=== PATIENT | female | born 1950 | race Caucasian/White ===

== ENCOUNTER → 2017-03-25 | Day surgery (SDC) | payer OTHER ==
[~2017-03-25] VITALS: Ht 154.9 cm; Wt 113.5 kg
[2017-03-25] VITALS (9 sets, daily range): BP systolic 127–231; BP diastolic 57–108; PULSE 77–90; TEMP 36.8; O2SAT 97–99; Ht 154.9 cm; Wt 113.5 kg
[~2017-03-25] MED LIST: ASPI81TA28 PO; ATOR-22 PO; CITA10TA8 PO; CITA20TA4 PO; FENTANYL CITRATE INJ 50 MCG/1 ML 2 ML VIAL ONE; FURO-85 PO; GABA1CAP PO; GLC/500 PO; GLUC1TES; HEPARIN SOD (PORCINE) 1000 UNIT/ML 10 ML VIAL ONE; HYDR-5688 PO; HYZ/50125 PO; HydrALAZINE HCL 20 MG/ML VIAL IV. STA; HydrALAZINE HCL 20 MG/ML VIAL ONE; LEVO100T7 PO; LIDOCAINE HCL 2% 2 ML VIAL (20MG/ML) ONE; METO50TA16 PO; MIDAZOLAM HCL 1 MG/ML 2ML VIAL ONE; NITROGLYCERIN/D5W 100MCG/ML 20ML SYR ONE; NiCARDipine HCL INJ 2.5 MG/ML 10 ML AMP ONE; PHENYLEPHRINE HCL INJ 10 MG/ML VIAL ONE; PROPOFOL IV EMULSION 10 MG/ML 20 ML VIAL IV ONE; ZNTT/150 PO
--- NOTE | 2017-03-25 07:26 | History and Physical ---
History & Physical Date & Time of Service: Mar 24, 2017 at 18:20 Chief Complaint: Aortic valve stenosis, mitral regurgitation Primary Care Physician: Ellen Nunez M.D. History of Present Illness Source: patient, clinic records Bina Perez is a 66 year old female initially seen by the undersigned in preoperative cardiology consultation on 01/21/17 for preoperative cardiovascular evaluation prior to right total knee replacement. She noted difficulty with ambulating due to the right leg. She was observed ambulating in the clinic when I watched her walk into the exam room and I had observed appear to be significant shortness of breath with minimal exertion. She underwent dobutamine stress echocardiogram for further risk stratification and was found that her previous moderate aortic valve stenosis progressed to severe aortic valve stenosis. Orthopedic surgery has therefore been placed on hold and she is undergoing further evaluation with plans for possible aortic valve replacement many future. A transesophageal echocardiogram has been recommended for further assessment of both her aortic valve as well as mitral valve there is concern of significant mitral valve regurgitation Past Medical/Surgical History Past medical history: 1. Obesity 2. Hypertension 3. Type 2 diabetes mellitus 4. Aortic valve stenosis 5. Remote transient ischemic attack 6. Progressive osteoarthritis 7. 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 Allergies Coded Allergies: Sulfa Antibiotics (Unverified Allergy, Mild, HIVES, 03/25/17) Home Medications Scheduled Citalopram Hydrobromide (Celexa), 1.5 TAB PO DAILY Furosemide (Lasix), 2 TAB PO DAILY Gabapentin (Neurontin), 100 MG PO TID Hctz/Losartan (Hyzaar 12.5MG/50MG), 1 TAB PO DAILY Levothyroxine Sodium (Levothyroxine Sodium), 1 TAB PO DAILY Metformin Hcl (Glucophage), 500 MG PO BID Metoprolol Tartrate (Lopressor) (Lopressor), 50 MG PO BID Ranitidine (Zantac), 150 MG PO BID Scheduled PRN Hydrocodone/Acetaminophen 5MG/325MG ([place] 5MG/325MG), 1 TAB PO Q6 PRN for Pain Miscellaneous Medications Glucose Blood (Blood Glucose Test Strips) Review of Systems 10 point review of systems is negative with the exception of right knee pain and exertional shortness of breath Physical Exam Vital Signs Last Vital Signs Documentation Date Time Temp Pulse Resp B/P (MAP) Pulse Ox O2 Delivery O2 Flow Rate FiO2 03/25/17 07:10 36.8 78 16 186/84 97 Room Air General Appearance: WD/WN Respiratory/Chest: lungs clear Cardiovascular: regular rate, rhythm, + systolic murmur Abdomen/GI: non tender, soft Extremities/Musculoskelatal: no pedal edema Neurologic/Psych: alert, normal mood/affect, oriented x 3, + pertinent finding (no focal neurologic deficits ) Diagnostics Laboratory Results Laboratory studies/: Received 0.36 Hemoglobin 11.9 Account 317 LDL cholesterol 03/12/70 was 63 mg/dL Chemistry panel 03/12/17: Sodium 137 Potassium 3.9 Chloride 93 Glucose 114 Blood urea nitrogen 5 Creatinine 0.6 Diagnostic Radiology Dobutamine stress echocardiogram performed 02/09/17: Stress echocardiogram was negative for inducible ischemia RESTING STUDY: The LV wall thickness is mildly increased (concentric). The left atrium is mildly enlarged. There is severe mitral annular calcification. Mild mitral regurgitation is present. The aortic valve has three leaflets. The aortic valve is severely calcified. Severe aortic valve stenosis is present. The peak velocity across aortic valve was 4 meters/second at rest with a mean aortic valve gradient of 40 millimeters of Hg. There is no evidence of pulmonary hypertension. Compared to the prior study dated 03/24/2016 there has been an interval increase in the severity of the aortic valve stenosis. Severe aortic valve stenosis is noted on the present study. EKG EKG performed 03/04/17: Normal sinus rhythm at 72 bpm. Normal EKG Impression Assessment and Plan Impression: 66-year-old female 1. Severe aortic stenosis, mitral valve calcification and is mild mitral regurgitation Plan: Patient is to undergo transesophageal echocardiogram for further delineation of her valvular heart disease prior to cardiac catheterization CT surgery consultation. Patient is agreeable and informed consent was obtained. She took her am blood pressure medications however, her BP is a little high on arrival. Will monitor with sedation.
--- NOTE | 2017-03-25 08:22 | Anesthesiology Progress Note ---
Anesthesia Post Op Note Date & Time Mar 25, 2017 at 08:22 Vital Signs Pain Intensity: 0 Vital Signs Past 12 Hours Date Time Temp Pulse Resp B/P (MAP) Pulse Ox O2 Delivery O2 Flow Rate FiO2 03/25/17 08:20 77 16 180/90 97 Nasal Cannula 6 03/25/17 08:15 78 16 231/92 97 Nasal Cannula 6 03/25/17 08:10 77 16 201/106 97 Nasal Cannula 6 03/25/17 08:05 79 16 171/70 99 Nasal Cannula 6 03/25/17 08:00 80 16 180/84 98 Nasal Cannula 6 03/25/17 07:55 87 16 197/86 98 Nasal Cannula 6 03/25/17 07:50 90 16 127/108 98 Nasal Cannula 6 03/25/17 07:10 36.8 78 16 186/84 97 Room Air Notes Mental Status: alert / awake / arousable, participated in evaluation Pt Amnestic to Procedure: Yes Nausea / Vomiting: adequately controlled Pain: adequately controlled Airway Patency, RR, SpO2: stable & adequate BP & HR: stable & adequate Hydration State: stable & adequate Anesthetic Complications: no major complications apparent
--- NOTE | 2017-03-25 08:58 | Cardiology Procedure Brief Nt ---
Preliminary Cardiology Note Procedure Date Mar 25, 2017. Pre-Procedure Diagnosis Severe aortic stenosis, assess for MV pathology Post-Procedure Diagnosis Severe , moderate MAC, no MS, Trace to mild MR, Mild TR Procedure(s) Performed CHELO Board Runner Reji Shannon DO Emergency Vehicle Driver(s) STEVEN Villa Estimated Blood Loss none Preliminary Findings Severe on 2 D visualization. Trace to mild MR. Mild TR. Intact interatrial septum. Normal aortic root and proximal Ascending aorta diameter Recommendations Return next week for cardiac catheterization. Outpatient CT surgery consult. Specimens none Anesthesia Administered by Dr Demarco, propofol 80 mg. Complication(s) None Disposition DC to home
--- NOTE | 2017-03-25 09:05 | Discharge Instructions ---
Discharge Instructions Procedure Procedure Date: Mar 25, 2017. Reason for Visit: aortic stenosis, mitral valve calcification , exclude MR , MS. Discharge Discharge Date: Mar 25, 2017. Discharge Diagnosis: Severe Last Recorded Wt (Kilograms): 113.5 Anesthesia Post Anesthesia Instructions: If you have had General Anesthesia or IV Sedation: * Do not drive today. * Resume driving when surgeon permits. * Do not make important decisions or sign legal documents today. * Call surgeon for: 1. Temperature elevations greater than 101 degrees F. 2. Uncontrollable pain. 3. Excessive bleeding. 4. Persistent nausea and vomiting. 5. Medication intolerance (nausea, vomiting or rash). * For nausea and vomiting use only clear liquids such as: tea, soda, bouillon until nausea subsides, then gradually increase diet as tolerated. * If you have any concerns or questions, call your surgeon's office. If physician is unavailable and it is an emergency, call 911 or go to the nearest emergency room. Instructions Activity Recommendations: limitations as noted below Recommended Home Diet: resume previous diet Allergies: Coded Allergies: Sulfa Antibiotics (Unverified Allergy, Mild, HIVES, 03/25/17) Follow Up Additional Instructions: ACTIVITY RECOMMENDATIONS: Resume activities as tolerated with no limitations unless specified. _x_ No lifting over _10_ pounds for 24 hours. _x_ Do not engage in vigorous exercise, sexual activity, or sports for 24 hours. _x_ Do not drive or operate any motorized equipment for 24 hours. _x_ You may return to work/school tomorrow. _x_ Nothing to eat or drink until gag reflex returns. _x_ No HOT or WARM liquids for _24_ hours. _x_ Avoid "scratchy" foods such as potato chips or pretzels for 24 hours following procedure. SPECIAL CARE: If you experience coughing up or vomiting of blood, contact _Dr Shannon ___ Follow-up with: Keep appointment for cardiac catheterization next week. Micaela William Recommendations: Call your doctor if: * Temperature above 101 degrees * Pain not relieved by pain medicine ordered * There is increased drainage or redness from any incision * You have any unanswered questions or concerns. Your Doctors Instructions noted above were prepared by provider Blake Shannon. Patient Signature Section: Patient Instructions Signature Page Irma Perez Patient (or Guardian) Signature/Date: I have read and understand the instructions given to me by my caregivers. Caregiver/RN/Doctor Signature/Date: The above-named patient and/or guardian has received patient instructions on this date. + Original Patient Signature Page (only) stays with chart. Please make copy for patient.
--- NOTE | 2017-03-25 12:21 | TEE ---
*NOTICE TO RECEIVING [employer] AGENCY This information is strictly Confidential and protected under [place] law. [place] law prohibits you from making any further disclosure of this information unless further disclosure is expressly permitted by the written consent of the person to whom it pertains or is authorized by law. A general authorization for the release of medical or other information is not sufficient for this purpose. Hospital accepts no responsibility if the information is made available to any other person, INCLUDING THE PATIENT. Interpretation Summary * Name: TAMIKO GAR Study Date: 03/25/2017 07:32 AM BP: 177/98 mmHg * Patient Location: C.CATH HR: 80 * : 1950 (M/d/yyyy) Gender: Female Height: 61 in * Age: 66 yrs Ethnicity: CA Weight: 250 lb * Ordering Physician: Blake Shannon DO, FACC * Referring Physician: Blake Shannon DO, FACC * Performed By: Traci Rao RDCS * * Reason For Study: AVstenosis, MV regurgitation * BSA: 2.1 m2 * -- Conclusions -- * There is moderate concentric left ventricular hypertrophy. * The left ventricular wall motion is normal. * The LV Ejection Fraction = 55-60%. * The aortic valve is bicuspid. * The aortic valve is severely calcified. * Severe valvular aortic stenosis. * There is moderate mitral annular calcification. * There is mild mitral regurgitation. * The aortic root and proximal ascending aorta are normal sized. * There is moderate tricuspid regurgitation. * Mild pulmonary hypertension is present. * The PA systolic pressure is calculated to be 40 mm Hg. Procedure Details * The transesophageal portion of this study was personally supervised by the undersigned interpreting physician. * CHELO Probe #1 utilized for procedure. * The study was performed in Cardiac Catheterization Lab. * Time out was conducted by the physician, nurse, and waste management recycling technician with positive identification of patient and procedure. * Informed consent for Transesophageal Echocardiogram was obtained prior to the procedure. * An intravenous line was placed. A topical anesthetic agent was used for oropharangeal anesthesia. A bite block was inserted. * Sedation performed by the anesthesia department. * The patient's vital signs, including blood pressure, heart rate, pulse oximetry and cardiac rhythm were monitored throughout the procedure . * The posterior oropharynx was anesthetized using a topical anesthetic spray. A bite guard was inserted. * A multifrequency, multiplane transesopheageal echocardiographic endoscope was inserted and manipulated in the standard fashion to achieve multiplane views. * The transesophageal probe was passed without difficulty. * The usual views were obtained; basal, mid-esophageal, transgastric and aortic views. * The patient tolerated the procedure well without evidence of orophangeal or esophageal trauma. * A 2D transesophageal echocardiogram with spectral and color flow Doppler was performed. * Contrast injection with agitated saline was performed. Left Ventricle * The left ventricle is normal in size. * There is moderate concentric left ventricular hypertrophy. * Left ventricular systolic function is normal. * Ejection Fraction = 55-60%. * The left ventricular wall motion is normal. Right Ventricle * The right ventricle is normal in size and function. Atria * The left atrial size is normal. * No thrombus is detected in the left atrial appendage. * No left atrial mass or thrombus visualized. * Right atrial size is normal. * The interatrial septum is intact with no evidence for an atrial septal defect. Mitral Valve * There is moderate mitral annular calcification. * There is no mitral valve stenosis. * There is mild mitral regurgitation. Tricuspid Valve * The tricuspid valve is normal. * There is no tricuspid stenosis. * There is moderate tricuspid regurgitation. * Mild pulmonary hypertension is present. The PA systolic pressure is calculated to be 40 mm Hg. Aortic Valve * The aortic valve is bicuspid. * The aortic valve is severely calcified. * Severe valvular aortic stenosis. * No aortic regurgitation is present. Pulmonic Valve * The pulmonic valve is not well seen, but is grossly normal. Great Vessels * The aortic root and proximal ascending aorta are normal sized. Pericardium * There is no pericardial effusion. MMode 2D Measurements and Calculations Ao root diam 2.4 cm Ao root area 4.4 cm\S\2 asc Aorta Diam 2.8 cm
== END | disposition home or self-care (01) ==
LOC: C.CATH 05:59
PROVIDERS: ATTEND Specialist
DX: I35.0 Nonrheumatic aortic (valve) stenosis (principal); I36.1 Nonrheumatic tricuspid (valve) insufficiency; I51.9 Heart disease, unspecified; I10 Essential (primary) hypertension; E11.9 Type 2 diabetes mellitus without complications; M17.11 Unilateral primary osteoarthritis, right knee; E66.9 Obesity, unspecified; Z86.73 Personal history of transient ischemic attack (TIA), and cerebral infarction without residual deficits; Z79.84 Long term (current) use of oral hypoglycemic drugs; Z79.899 Other long term (current) drug therapy

== ENCOUNTER → 2017-03-30 | Day surgery (SDC) | payer OTHER ==
[~2017-03-30] VITALS: Ht 154.9 cm; Wt 113.5 kg
[~2017-03-30] MED LIST changes: +ACETAMINOPHEN 325 MG TAB ONE; +ACETAMINOPHEN 325 MG TAB PO PRN; +ATROPINE SULFATE 0.1 MG/ML 5ML SYR IV PRN; -HydrALAZINE HCL 20 MG/ML VIAL IV. STA; +LABETALOL HCL IV 5 MG/ML 20ML IV ONE; -LIDOCAINE HCL 2% 2 ML VIAL (20MG/ML) ONE; +ONDANSETRON INJ 2 MG/ML 2 ML VIAL IV PRN; -PHENYLEPHRINE HCL INJ 10 MG/ML VIAL ONE; -PROPOFOL IV EMULSION 10 MG/ML 20 ML VIAL IV ONE; +SODIUM CHLORIDE 0.9% 1000ML 250 ML IV PRN
[2017-03-30 07:21] VITALS: Ht 154.9 cm; Wt 113.5 kg
[2017-03-30 07:22] VITALS: BP 209/88; PULSE 72; TEMP 36.4; O2SAT 94
--- NOTE | 2017-03-30 09:52 | History & Physical Bridge Note ---
H&P Re-Evaluation Bridge Note: I have examined the patient, reviewed the History & Physical and in the interval since the performance of the History & Physical I have noted the following changes of clinical significance: No changes noted
--- NOTE | 2017-03-30 09:53 | Procedure Note ---
Pre-Mod Sedation Assessment General Date of Moderate Sedation: Mar 30, 2017. Vital Signs: Vital Signs Past 12 Hours Date Time Temp Pulse Resp B/P (MAP) Pulse Ox O2 Delivery O2 Flow Rate FiO2 03/30/17 09:45 86 16 117/75 (89) 98 Mask 3 03/30/17 07:22 36.4 72 16 209/88 94 Room Air Review Cardiovascular: regular rate, rhythm, + pertinent finding (1+ B/L LE edema.) Abdomen: normal bowel sounds, non tender, soft Lungs: chest non-tender, lungs clear Pre-Sedation Airway Assessment Oral Cavity: Dentures Short Thick Neck: Yes Hx of Sleep Apnea: No Smoking Status: Never Smoker Mallampati Classification: Class III ASA Classification: Class III Procedure Planning Contraindications-for Mod Sed: None Yes Notes The planned sedation has been discussed with the patient and consent obtained. I have identified the patient, determined the appropriateness of sedation and have assessed the patient immediately prior to the procedure. All medicine(s) and interventions are by my order.
--- NOTE | 2017-03-30 09:54 | Procedure Note ---
Post-Mod Sedation Assessment General Date of Moderate Sedation Mar 30, 2017. Vital Signs: Vital Signs Past 12 Hours Date Time Temp Pulse Resp B/P (MAP) Pulse Ox O2 Delivery O2 Flow Rate FiO2 03/30/17 09:45 86 16 117/75 (89) 98 Mask 3 03/30/17 07:22 36.4 72 16 209/88 94 Room Air Review - Discharge Criteria Vital Signs Stable: Yes Alert/Oriented/Conversant: Yes Returned to Baseline Mental St: Yes Nausea Absent/Minimal: Yes Pain/Discomfort/Absent/Minimal: Yes Normal/Baseline Respirations: Yes Active Bleeding?: No Pt Received D/C Instructions: Yes Prescriptions Given: None Specific Proced. D/C Criteria Distal Pulses Present (Cardiac: Yes Groin site assessed-Card Cath: Yes Voided Prior To Discharge: Yes Discharged Patients Adult Escort/Transportation: Yes
--- NOTE | 2017-03-30 10:11 | Cardiac Catheterization ---
Procedure Note Procedure Date Mar 30, 2017. Pre-Procedure Diagnosis Valvular Disease AUC Score 7 Post-Procedure Diagnosis Mild CAD Procedure(s) Performed Coronary Angiography Design Maker Dr. [employer] Lawyer(s) Alexsandra RTR, Sedation monitoring nurse: Juan Carlos Shaikh RN Estimated Blood Loss 5cc Medication(s) Fentanyl (50mcg), Nicardipine, Nitroglycerin, Versed (2mg), Lidocaine 1% Summary of Findings Mild non-obstructive CAD. Hemodynamics Rest Ao: 163/81/118 Final Ao: 162/81/118 LV: N/A Recommendations valve replacement Specimens None Radiation Exposure (mGy) 1626 Contrast (mls) 70 Anesthesia Moderate Sedation, Start 0841, Stop 0944 Procedural Complication(s) None Disposition Visual Aid Expert Holding/Recovery ACC Data Cardiac Status Clinical evaluation leading to the procedure CAD Presntation: Stable angina Anginal Classification: CCS II Heart Failure: No Cardiogenic Shock w/in 24Hrs: No Cardiac Arrest w/in 24Hrs: No Imaging studies past 6 months: Yes Stress studies past 6 months: No Standard Exercise Stress Test: No Stress Echocardiogram: No Stress Testing w/SPECT MPI: No Cardiac CTA: No Coronary Anatomy Dominant: Right Left Main (% Stenosis): Normal LAD (% Stenosis): Ostial (0%), Proximal (10%), Mid (10%), Distal (0%) D1 (% Stenosis): Proximal (10%) D2 (% Stenosis): Normal Circumflex (% Stenosis): Normal OM1 (% Stenosis): Normal RCA (% Stenosis): Normal R PDA (% Stenosis): Normal R PL1 (% Stenosis): Normal Ramus (% Stenosis): Normal Diagnostic Status: Elective Closure Device Percutaneous Entry Location: Femoral (Radial access obtained, however, unable to pass wire past the elbow due to tortuosity) Closure Device: Mynx (TR band for radial access) Recommendations: valve replacement Intraprocedure Events Significant Dissection: No Perforation: No
--- NOTE | 2017-03-30 10:12 | Discharge Instructions ---
Discharge Instructions Procedure Procedure Date: Mar 30, 2017. Reason for Visit: *Dr Moreau To Do* Aortic Stenosis. Discharge Discharge Date: Mar 30, 2017. Discharge Diagnosis: Severe aortic stenosis. Mild CAD Last Recorded Wt (Kilograms): 113.5 Anesthesia Post Anesthesia Instructions: If you have had General Anesthesia or IV Sedation: * Do not drive today. * Resume driving when surgeon permits. * Do not make important decisions or sign legal documents today. * Call surgeon for: 1. Temperature elevations greater than 101 degrees F. 2. Uncontrollable pain. 3. Excessive bleeding. 4. Persistent nausea and vomiting. 5. Medication intolerance (nausea, vomiting or rash). * For nausea and vomiting use only clear liquids such as: tea, soda, bouillon until nausea subsides, then gradually increase diet as tolerated. * If you have any concerns or questions, call your surgeon's office. If physician is unavailable and it is an emergency, call 911 or go to the nearest emergency room. Instructions Activity Recommendations: limitations as noted below Return to School/Work: with the following limitations Recommended Home Diet: diabetes diet Allergies: Coded Allergies: Sulfa Antibiotics (Unverified Allergy, Mild, HIVES, 03/25/17) Phentermine (Unverified Adverse Reaction, Unknown, Seizure activity or cardiac arrest - pt unsure, 03/30/17) Tramadol (Unverified Adverse Reaction, Unknown, Seizure activity, 03/30/17) Provider Instructions ACTIVITY RECOMMENDATIONS: It is common to feel weak and fatigue for a few days. * Do not drive or operate any motorized equipment for the next three days. * Limit stair usage (2 or 3 trips a day only) for the next three days. * Do not lift anything heavier than 10 pounds for the next three days. * Do not engage in vigorous exercise or any sports for the next five days. * You may shower the day after your procedure, but do not immerse the area for three days. Cleanse the site gently with soap and water. SPECIAL CARE INSTRUCTIONS: * You may replace the pressure dressing or band-aid the morning after the procedure. * After your procedure, it is normal to have a small bruise or small lump at the site. Examine your site daily for any change in the bruise or lump, redness, swelling, drainage or numbness. Notify your doctor if any change. BLEEDING: * If there is a small amount of bleeding at the site, lie down and apply firm pressure with a clean cloth for ten minutes. When the bleeding stops, lie quietly keeping the procedure limb straight for six hours. Notify your doctor as soon as possible. * If the bleeding does not stop after ten minutes or if there is a large amount of bleeding or spurting, call 911 immediately. Continue to lie down and hold firm pressure until help arrives. SKIN IRRITATION: * You may experience some redness and/or swelling in the area where radiation was administered. If any skin irritation occurs, please contact your family physician. FOLLOW UP VISIT: Keep any scheduled doctor appointments. Follow Up Follow-up with: Dr. Shannon as scheduled. Micaela William Recommendations: Call your doctor if: * Temperature above 101 degrees * Pain not relieved by pain medicine ordered * There is increased drainage or redness from any incision * You have any unanswered questions or concerns. Your Doctors Instructions noted above were prepared by provider Shantanu Gautam. Patient Signature Section: Patient Instructions Signature Page Irma Perez Patient (or Guardian) Signature/Date: I have read and understand the instructions given to me by my caregivers. Caregiver/RN/Doctor Signature/Date: The above-named patient and/or guardian has received patient instructions on this date. + Original Patient Signature Page (only) stays with chart. Please make copy for patient.
[2017-03-30 13:00] VITALS: BP 132/86; PULSE 88; O2SAT 95
== END | disposition home or self-care (01) ==
LOC: C.CATH 06:59
PROVIDERS: ATTEND Specialist
DX: I25.10 Atherosclerotic heart disease of native coronary artery without angina pectoris (principal); I35.0 Nonrheumatic aortic (valve) stenosis; I10 Essential (primary) hypertension; E11.9 Type 2 diabetes mellitus without complications; E03.9 Hypothyroidism, unspecified; E78.5 Hyperlipidemia, unspecified; M19.90 Unspecified osteoarthritis, unspecified site; M21.41 Flat foot [pes planus] (acquired), right foot; M21.42 Flat foot [pes planus] (acquired), left foot; Z86.73 Personal history of transient ischemic attack (TIA), and cerebral infarction without residual deficits; Z79.82 Long term (current) use of aspirin; Z82.49 Family history of ischemic heart disease and other diseases of the circulatory system; Z83.3 Family history of diabetes mellitus

== ENCOUNTER 2025-07-10 14:39 | Inpatient (IN) ==
--- NOTE | 2025-07-10 15:10 | Emergency Department Note ---
Impression & Plan Cellulitis of left lower leg, Toe ulcer, Hypokalemia, Hypertension ED Provider Note NAME: TAMIKO GAR AGE: 74 SEX: F : 1950 ARRIVES VIA: Ambulance INFORMANT: Patient, EMS ED PROVIDER(S): Steven Regalado DO CHIEF COMPLAINT: toe infection HPI: This is a 74-year-old female with the PMHx of Hypertension, hyperlipidemia, DM2, anxiety/depression, hypothyroidism, and lower extremity edema presenting to [facility] for further evaluation of worsening wound infection. Patient is accompanied by EMS who provide additional history. EMS notes the patient has been hemodynamic stable and route. She follows with wound care and reports worsening left toe wounds and concerns for cellulitis. They report exposed bone and tendon. Patient reports some pain in this area but otherwise no complaints. She states that her caregivers have been trying to perform wound care but it continues to worsen. They deny fever or chills. No cough or congestion. Denies chest pain or palpitations. No shortness of breath. They deny abdominal pain, nausea and vomiting. No urinary complaints. No recent changes in bowel movements. Patient denies recent changes in medications or OTC supplements. Patient offers no other complaints, today. ADDITIONAL HISTORY OBTAINED: Per HPI Chronic Medical/Social Conditions Affecting Care: Per HPI PAST MEDICAL HISTORY: See Below PAST SURGICAL HISTORY: See Below FAMILY HISTORY: See Below SOCIAL HISTORY: See Below HOME MEDICATIONS: See Below ALLERGIES: See Below VITALS: See Below PHYSICAL EXAMINATION: GENERAL: Sitting up in bed, alert, well appearing, well nourished, no distress, non-toxic EYE EXAM: normal conjunctiva. PERRL and EOM's grossly intact. OROPHARYNX: no exudate, no erythema, lips, buccal mucosa, and tongue normal and mucous membranes are moist NECK: supple, no nuchal rigidity, no adenopathy, non-tender LUNGS: Clear to auscultation. Normal chest wall mechanics HEART: no murmurs, regular rate, regular rhythm ABDOMEN: abdomen soft, non-tender, no masses, no rebound or guarding. BACK: Back is symmetrical on inspection and there is no deformity, no midline tenderness, no CVA tenderness. SKIN: no rashes and no bruising UPPER EXTREMITIES: upper extremities are grossly normal. LOWER EXTREMITIES: As compared to the right lower extremity, the left lower extremity is erythematous extending into mid tibia. Significant erythema and warmth of toes 2 through 4. There are necrotic areas of these toes. Most significant is the second toe on the plantar aspect with exposed tendon and bone. The extremities are warm with 2+ DP pulses. NEURO EXAM: Normal sensorium, GCS 15, normal speech, no gross weakness of arms, no gross weakness of legs. MEDICAL DECISION MAKING: Differential diagnoses includes but not limited to vascular ulcer, lymphedema, venous stasis, cellulitis, necrotizing fasciitis, diabetic ulcer, osteomyelitis, bacteremia In summary, this is a 74 year old female who presented with lower extremity wounds. Differential as above. Nursing notes and pertinent past medical records reviewed. Vital signs reviewed and the patient is hypertensive but otherwise afebrile and HDS. History and presentation revealed risk factors for lower extremity wounds including vascular disease as well as DM2. Appears that she has chronic wounds of the left lower extremity. Unclear if she has been seeing wound care. Physical examination revealed exposed bone intendant evident on exam. As a result of my initial evaluation, given physical examination, I am concerned for vascular or diabetic ulcers that now have worsened to a complicated cellulitis and possible osteomyelitis. Patient's vital signs are stable and I doubt sepsis or bacteremia at this time. I do feel the patient likely has cellulitis on top of likely bone infection. Patient will require hospitalization for IV antibiotics and will touch base with podiatry. Diagnostics interpreted by me include cardiac monitoring as listed below: -Cardiac Monitoring: An order was placed for continuous cardiac monitoring. The monitor shows a rate of 70s with regular rhythm. Patient completed laboratory studies and imaging. Results independently interpreted by me are no significant leukocytosis. Anemia is stable. ESR and CRP are elevated but procalcitonin is normal. Hypokalemia noted and replenishment is ordered. MRSA Nares negative. Plain films were independently interpreted by me as negative for evidence of osteomyelitis but given exam we will continue to treat for this. I did discuss with podiatry and Dr. Combs was agreeable to see the patient. The patient was managed with broad-spectrum antibiotics including ceftriaxone and vancomycin. Patient did not require pain medications while in the emergency department. Ultimately, the decision was made to admit the patient for left lower extremity cellulitis with concerns for osteomyelitis and diabetic versus vascular ulceration. I discussed the case with the hospitalist service via telephone/[employer] and they are agreeable to admit the patient to their services. Based on the above, including the patient's age, coexisting illnesses, labs, imaging, and exam findings the decision to treat as an inpatient. I discussed the patient with the hospitalist team who recommended admission to their services. They received the medications, treatments, interventions indicated above and their condition remained stable. I discussed my findings with the patient and their family and they understand and agree with the treatment plan. All patient / family questions were answered to their satisfaction. Consults/Care Managements Discussions: Per MDM ER treatment provided: See above Procedures:none Critical Care: None The chart was completed utilizing [employer] voice recognition software. Grammatical errors, random word insertions, pronoun errors, and incomplete sentences are an occasional consequence of this system due to software limitations, ambient noise, and hardware issues. Any formal questions or concerns about the content, text, or information contained within the body of this dictation should be directly addressed to the physician for clarification. Past Med/Surg History Problem List (Updated 07/10/25 @ 17:36 by Steven Regalado DO) Hypertension (Acute) Hypokalemia (Acute) Toe ulcer (Acute) Cellulitis of left lower leg (Acute) Social History Smoking Status: Never smoker Preferred Language: Wolof Feels Safe at Home: Yes Allergies Allergies Allergy/AdvReac Type Severity Reaction Status Date / Time Sulfa (Sulfonamide Allergy Intermediate HIVES Verified 03/28/21 12:16 Antibiotics) phentermine AdvReac Severe Seizure Verified 03/28/21 12:16 activity or cardiac arrest - pt unsure tramadol AdvReac Intermediate Seizure Verified 03/28/21 12:16 activity Home Meds Home Medications Medication Instructions Recorded Confirmed Magic Swizzle 15 ml PO QID 03/28/21 07/10/25 aspirin 81 mg tablet,delayed 81 mg PO QAM 03/28/21 07/10/25 release atorvastatin 20 mg tablet 20 mg PO HS 03/28/21 07/10/25 buspirone 10 mg tablet 10 mg PO TID 03/28/21 07/10/25 citalopram 20 mg tablet 30 mg PO QAM 03/28/21 07/10/25 cyanocobalamin (vitamin B-12) 1,000 mcg PO QAM 03/28/21 07/10/25 1,000 mcg tablet (Vitamin B-12) diphenhydramine 25 1 tab PO HS PRN Sleep 03/28/21 07/10/25 mg-acetaminophen 500 mg tablet (Tylenol PM Extra Strength) diphenhydramine HCl 25 mg tablet 25 mg PO BID 03/28/21 07/10/25 (Benadryl Allergy) famotidine 10 mg tablet (Acid 10 mg PO BID 03/28/21 07/10/25 Water Attendant (famotidine)) ferrous sulfate 325 mg (65 mg 325 mg PO QAM 03/28/21 07/10/25 iron) tablet (iron) gabapentin 100 mg capsule 100 mg PO TID 03/28/21 07/10/25 levothyroxine 100 mcg tablet 100 mcg PO DAILYBB 03/28/21 07/10/25 melatonin 1 mg tablet 1 mg PO HS 03/28/21 07/10/25 metformin 500 mg tablet 500 mg PO BIDM 03/28/21 07/10/25 metoprolol tartrate 50 mg tablet 50 mg PO BID 03/28/21 07/10/25 potassium chloride 10 mEq 10 meq PO QAM 03/28/21 07/10/25 tablet,extended release(part/cryst) spironolactone 25 mg tablet 12.5 mg PO QAM 03/28/21 07/10/25 torsemide 20 mg tablet 10 - 20 mg PO TID 03/28/21 07/10/25 duloxetine 60 mg capsule,delayed 60 mg PO DAILY 07/10/25 07/10/25 release Results & Data (ED) Vital Signs Vital Signs - 24 hr 07/10/25 14:32 07/10/25 15:15 07/10/25 15:42 Temperature 37 C Temperature Source Oral Pulse Rate 70 73 72 Pulse Rate from SpO2 Sensor 77 90 Respiratory Rate 18 16 18 Respiratory Effort / Characteristics Non-Labored Spontaneous Respiratory Depth Normal Respiratory Pattern Regular Blood Pressure 151/88 H 139/71 168/82 H Blood Pressure Mean 109 93 110 Pulse Oximetry 98 98 99 Oxygen Delivery Method Room Air Nasal Cannula Nasal Cannula Oxygen Flow Rate 2 2 Sepsis Recent Fever Within 48 Hours No Sepsis New/Unexplained Change in Mental Status N/A Sepsis Action Taken by Nursing No Action Required 07/10/25 16:13 Temperature Temperature Source Pulse Rate 70 Pulse Rate from SpO2 Sensor Respiratory Rate Respiratory Effort / Characteristics Respiratory Depth Respiratory Pattern Blood Pressure Blood Pressure Mean Pulse Oximetry Oxygen Delivery Method Oxygen Flow Rate Sepsis Recent Fever Within 48 Hours Sepsis New/Unexplained Change in Mental Status Sepsis Action Taken by Nursing Laboratory Data 07/10/25 15:15 07/10/25 15:15 Lab Results 07/10/25 07/10/25 Range/Units 15:10 15:15 WBC 10.35 (4.8-10.8) K/ul RBC 3.39 L (4.20-5.40) M/uL Hgb 10.4 L (12.0-16.0) g/dl Hct 33.0 L (37.0-47.0) % MCV 97.3 (80.0-100.0) fL MCH 30.7 (25.0-34.0) pg MCHC 31.5 L (32.0-36.0) g/dL RDW Std Deviation 47.7 H (36.4-46.3) fL RDW Coeff of Yohana 13.3 (11.5-14.5) % Plt Count 323 (130-400) K/uL MPV 8.6 L (9.4-12.4) fL Immature Gran % (Auto) 0.5 % Neut % (Auto) 71.5 % Lymph % (Auto) 14.3 % Mower % (Auto) 10.3 % Eos % (Auto) 2.8 % Baso % (Auto) 0.6 % Neut # (Auto) 7.40 H (1.40-6.50) K/uL Lymph # (Auto) 1.48 (1.20-3.40) K/uL Mower # (Auto) 1.07 H (0.11-0.59) K/uL Eos # (Auto) 0.29 (0.00-0.50) K/uL Baso # (Auto) 0.06 (0.00-0.20) K/uL Immature Gran # (Auto) 0.05 (0.01-0.20) K/uL ESR 74 H (0-30) mm/hr PT 11.1 (9.0-12.0) Seconds INR 1.0 (0.9-1.1) Sodium 136 (136-145) mmol/L Potassium 3.3 L (3.5-5.1) mmol/L Chloride 102 (98-107) mmol/L Carbon Dioxide 26 (21-32) mmol/L Anion Gap 8 (3-11) BUN 14 (6-23) mg/dl Creatinine 0.67 (0.6-1.2) mg/dl Est Cr Clr Drug Dosing 72.3 ml/min eGFR 92.81 BUN/Creatinine Ratio 20.9 H (10-20) Glucose 77 (70-99(Fasting)) mg/dl Calcium 8.3 L (8.6-10.3) mg/dl Total Bilirubin 0.3 (0.2-1.0) mg/dl AST 19 (13-39) U/L ALT 9 (7-52) U/L Alkaline Phosphatase 105 H (34-104) U/L C-Reactive Protein 0.90 H (0-0.5) mg/dl Total Protein 8.0 (6.0-8.3) gm/dl Albumin 3.7 (3.4-5.0) gm/dl Globulin 4.3 H (2.5-4.0) gm/dl Albumin/Globulin Ratio 0.9 (0.9-2) Procalcitonin 0.10 (0-0.5) ng/ml Administered Medications Vancomycin HCl 2,000 mg/ (Sodium Chloride) 540 mls @ 200 mls/hr IV NOW ONE Stop: 07/10/25 18:35 Last Admin: 07/10/25 16:35 Dose: 200 mls/hr Documented By: JADEN Discontinued Medications Ceftriaxone Sodium (Rocephin) 2,000 mg in 50 mls @ 100 mls/hr IV NOW STA Stop: 07/10/25 15:15 Last Infusion: 07/10/25 16:35 Dose: Infused Documented By: Admin: 07/10/25 15:59 Dose: 100 mls/hr Documented By: JADEN Potassium Chloride (Potassium Chloride Crtab 20 Meq Tabcr) 40 meq PO NOW STA Stop: 07/10/25 16:07 Last Admin: 07/10/25 16:35 Dose: 40 meq Documented By: JADEN Imaging Data Radiologist's Impression: Foot X-Ray 07/10/25 14:46 XR foot LT min 3V routine CLINICAL HISTORY: ulcer, om . Soft tissue ulcer between the first and third digits. COMPARISON: None FINDINGS: No fracture or dislocation. No evidence of osteomyelitis seen. There are atherosclerotic calcifications. There is pes planus. IMPRESSION: No osteomyelitis seen. ACT 112: Negative or not required by law. Electronically signed by: Josef Barrow M.D. 07/10/2025 3:26 PM Discharge Plan Visit Data Chief Complaint: Toe Injury/Pain Stated Complaint: NERCROTIC LESION ON FOOT ED Provider: Steven Regalado Discharge Problem: Cellulitis of left lower leg, Toe ulcer, Hypokalemia, Hypertension Patient Disposition: Admitted As Inpatient Condition: Serious Forms Stand Alone Forms: My [facility] [employer] Prescriptions Prescriptions: No Action metformin 500 mg tablet 500 mg PO BIDM atorvastatin 20 mg tablet 20 mg PO HS torsemide 20 mg tablet 10 - 20 mg PO TID Rx Instructions: Take 1 tab in the AM Take 1\2 tab in the afternoon take 1 tab in the pm famotidine [Acid Water Attendant (famotidine)] 10 mg tablet 10 mg PO BID cyanocobalamin (vitamin B-12) [Vitamin B-12] 1,000 mcg Tablet 1,000 mcg PO QAM aspirin 81 mg Tablet,Delayed Release (Dr/Ec) 81 mg PO QAM spironolactone 25 mg tablet 12.5 mg PO QAM levothyroxine 100 mcg tablet 100 mcg PO DAILYBB ferrous sulfate [iron] 325 mg (65 mg iron) Tablet 325 mg PO QAM buspirone 10 mg tablet 10 mg PO TID diphenhydramine HCl [Benadryl Allergy] 25 mg Tablet 25 mg PO BID metoprolol tartrate 50 mg tablet 50 mg PO BID gabapentin 100 mg capsule 100 mg PO TID diphenhydramine-acetaminophen [Tylenol PM Extra Strength] 25-500 mg Tablet 1 tab PO HS PRN (Reason: Sleep) potassium chloride 10 mEq tablet,ER particles/crystals 10 meq PO QAM melatonin 1 mg Tablet 1 mg PO HS Magic Swizzle 15 ml PO QID Rx Instructions: Swish for 30 seconds and expectorate Take for 7-10 days duloxetine 60 mg capsule,delayed release(DR/EC) 60 mg PO DAILY Referrals Referrals: Misty Lee DO [Primary Care Provider] -
--- NOTE | 2025-07-10 15:27 | XRay Report ---
XR foot LT min 3V routine CLINICAL HISTORY: ulcer, om . Soft tissue ulcer between the first and third digits. COMPARISON: None FINDINGS: No fracture or dislocation. No evidence of osteomyelitis seen. There are atherosclerotic c alcifications. There is pes planus. IMPRESSION: No osteomyelitis seen. ACT 112: Negative or not required by law. Electronically signed by: Josef aBrrow M.D. 07/10/2025 3:26 PM
[2025-07-10 15:38] LABS: Hematocrit (blood only) 33.0 % (37.0-47.0); Hemoglobin 10.4 g/dl (12.0-16.0); Immature Granulocytes # (auto) 0.05 K/uL (0.01-0.20); Immature Granulocytes % (auto) 0.5 %; Mean Corpuscular Hemoglobin 30.7 pg (25.0-34.0); Mean Corpuscular Volume 97.3 fL (80.0-100.0); Platelet Count 323 K/uL (130-400); RDW Standard Deviation 47.7 fL (36.4-46.3); Red Blood Count 3.39 M/uL (4.20-5.40); White Blood Count 10.35 K/ul (4.8-10.8)
[2025-07-10] MEDS ORDERED: VANCOMYCIN CONSULT ACTIVE PRN (15:54)
[2025-07-10 15:58] LABS: Alanine Aminotransferase 9.0 U/L (7-52); Albumin Globulin Ratio 0.9 (0.9-2); Albumin Level 3.7 gm/dl (3.4-5.0); Alkaline Phosphatase 105.0 U/L (34-104); Anion Gap 8.0 (3-11); Bilirubin,Total 0.3 mg/dl (0.2-1.0); Blood Urea Nitrogen 14.0 mg/dl (6-23); Calcium 8.3 mg/dl (8.6-10.3); Carbon Dioxide 26.0 mmol/L (21-32); Chloride 102.0 mmol/L (98-107); Creatinine Clr Calc Pharmacy 72.3 ml/min; Globulin 4.3 gm/dl (2.5-4.0); Glucose 77.0 mg/dl (70-99(Fasting)); Potassium 3.3 mmol/L (3.5-5.1); Sodium 136.0 mmol/L (136-145); Total Protein 8.0 gm/dl (6.0-8.3)
[2025-07-10] MEDS: cefTRIAXone SODIUM 2,000 MG/50 ML BAG IV STA (15:59)
[2025-07-10 16:26] LABS: INR 1.0 (0.9-1.1); Prothrombin Time 11.1 Seconds (9.0-12.0)
--- NOTE | 2025-07-10 16:34 | History & Physical Report ---
Date of Service July 10, 2025 Assessment & Plan (1) Diabetic foot ulcer: (2) Hypokalemia: (3) Cellulitis of left lower leg: (4) Chronic diastolic heart failure: (5) DM (diabetes mellitus), type 2: (6) CAD (coronary artery disease): (7) Dyslipidemia: (8) Mood disorder: (9) Hypothyroidism: (10) Ambulatory dysfunction: (11) Hypertension: Plan This is a 74yo F with PMH of Type 2 diabetes, heart failure with preserved EF, hypertension, mild CAD, morbid obesity, anxiety, history of aortic valve replacement, history of TIA, dyslipidemia and other medical problems as below who was sent in by PCP for concern of worsening diabetic wound. Left foot diabetic ulcer Left lower extremity cellulitis Sent in by PCP for progressing wound of 2-4th L toes, primarily 2nd ESR 74, CRP 0.90 Foot XR without osteomyelitis seen ED discussed with Dr. Combs, who evaluated patient and added on Foot MRI - pending Continue broad abx coverage with Cefepime and Dapto Follow wound culture Scheduled tylenol, oxycodone for breakthrough pain NPO @ midnight Diffuse rash,? Atopic dermatitis Diffuse BUE and BLE rash noted on exam, has been mentioned on previous outpatient notes as well Patient has been using calamine lotion at home Added Zyrtec, steroid cream BID, continue famotidine Only new meds were duloxetine started in April 2025, also completed a 10d Keflex course in April Monitor Hypokalemia Initial K 3.3 - replaced, monitor HFpEF Appears euvolemic. Continue home torsemide, spironolactone, Lopressor DM II Hold home agents SSI while in-patient BSG AC HS A1c added for AM CAD Dyslipidemia Continue aspirin, hold statin while on dapto Mood disorder Continue home buspirone 10mg TID, duloxetine 60nf daily Ambulatory dysfunction Ambulates with a walker at home, more difficult with R foot wound PT/Ot evals, fall precautions DVT Ppx: SCDs for now Code status: FULL PCP: Jesus Dispo: Admitted to med/surg Patient seen in collaboration with Dr. Valencia. Please see addendum. I spent a total of 75 minutes coordinating, documenting, and providing care for this patient excluding time spent in the performance of separately billed services or time spent by another provider/QHP. History of Present Illness Chief Complaint: foot wound Primary Care Provider: Misty Lee DO This is a 74yo F with PMH of Type 2 diabetes, heart failure with preserved EF, hypertension, mild CAD, morbid obesity, anxiety, history of aortic valve replacement, history of TIA, dyslipidemia and other medical problems as below who was sent in by PCP due to worsening wound on her foot. Patient is a poor historian and most information obtained from chart review. Previously followed with [facility] in [place] for wound on right leg and is established with [facility]. The caregiver reported a wound on patient's second digit of left foot yesterday. Area was draining clear fluid with a scant amount of yellow and caregiver called EMS after dressing the wound. Patient declined going to the ED once ambulance had arrived. Saw her PCP earlier today and due to worsening appearance of wound, was sent to the ED for further evaluation. Denies any fever or chills. No chest pain, shortness of breath, nausea, vomiting, abdominal pain, dysuria, diarrhea or constipation. Decreased feeling in feet from diabetic neuropathy but still with some. Has been taking medications as prescribed. Was transition from Celexa to duloxetine in April but denies any other new medications. Has extensive rash on upper lower extremities and is unclear how long it has been present but per discussion with patient seems like at least a few weeks. Lives with twin sister, has HH. Ambulates with a walker at baseline. Allergies Allergy/AdvReac Type Severity Reaction Status Date / Time Sulfa (Sulfonamide Allergy Intermediate HIVES Verified 03/28/21 12:16 Antibiotics) phentermine AdvReac Severe Seizure Verified 03/28/21 12:16 activity or cardiac arrest - pt unsure tramadol AdvReac Intermediate Seizure Verified 03/28/21 12:16 activity Home Medications Medication Instructions Recorded Confirmed Type Magic Swizzle 15 ml PO QID 03/28/21 07/10/25 History aspirin 81 mg tablet,delayed 81 mg PO QAM 03/28/21 07/10/25 History release atorvastatin 20 mg tablet 20 mg PO HS 03/28/21 07/10/25 History buspirone 10 mg tablet 10 mg PO TID 03/28/21 07/10/25 History cyanocobalamin (vitamin B-12) 1,000 mcg PO QAM 03/28/21 07/10/25 History 1,000 mcg tablet (Vitamin B-12) diphenhydramine 25 1 tab PO HS PRN Sleep 03/28/21 07/10/25 History mg-acetaminophen 500 mg tablet (Tylenol PM Extra Strength) diphenhydramine HCl 25 mg tablet 25 mg PO BID 03/28/21 07/10/25 History (Benadryl Allergy) famotidine 10 mg tablet (Acid 10 mg PO BID 03/28/21 07/10/25 History Rn Clinical (famotidine)) ferrous sulfate 325 mg (65 mg 325 mg PO QAM 03/28/21 07/10/25 History iron) tablet (iron) gabapentin 100 mg capsule 100 mg PO TID 03/28/21 07/10/25 History levothyroxine 100 mcg tablet 100 mcg PO DAILYBB 03/28/21 07/10/25 History melatonin 1 mg tablet 1 mg PO HS 03/28/21 07/10/25 History metformin 500 mg tablet 500 mg PO BIDM 03/28/21 07/10/25 History metoprolol tartrate 50 mg tablet 50 mg PO BID 03/28/21 07/10/25 History potassium chloride 10 mEq 10 meq PO QAM 03/28/21 07/10/25 History tablet,extended release(part/cryst) spironolactone 25 mg tablet 12.5 mg PO QAM 03/28/21 07/10/25 History torsemide 20 mg tablet 10 - 20 mg PO TID 03/28/21 07/10/25 History duloxetine 60 mg capsule,delayed 60 mg PO DAILY 07/10/25 07/10/25 History release Past Med/Surg History Problem List (Updated 07/10/25 @ 19:19 by Zulma Gutiérrez PA-C) Diabetic foot ulcer Hypokalemia (Acute) Cellulitis of left lower leg (Acute) Medical History (Updated 07/10/25 @ 19:19 by Zulma Gutiérrez PA-C) Hypertension Ambulatory dysfunction Hypothyroidism Mood disorder Dyslipidemia CAD (coronary artery disease) DM (diabetes mellitus), type 2 Chronic diastolic heart failure Family History (Updated 07/10/25 @ 19:19 by Zulma Gutiérrez PA-C) Other Diabetes Social History Smoking Status: Never smoker Preferred Language: Jamaican Feels Safe at Home: Yes Review of Systems Review of Systems: At least ten systems reviewed and negative except as noted in the HPI. Physical Exam Physical Exam: General Appearance: WD/WN, vitals as above, NAD, sitting up in bed, pleasant, conversing without issue Head: normocephalic, atraumatic Eyes: normal inspection, PERRL, conjunctivae normal, anicteric sclerae ENT: external ear and nose normal, oropharynx normal Neck: normal visual inspection Respiratory: normal respiratory effort, lungs clear to auscultation, no wheeze, rales, rhonchi. No accessory muscle use Cardiovascular: regular rate, rhythm, normal peripheral pulses, trace BLE edema Abdomen/GI: normal bowel sounds, soft, nontender Extremities/Musculoskeletal: no cyanosis or clubbing, extremities motor strength 5/5. + LLE erythematous and warm extending from foot up to mid leg. Erythema of 2nd-4th toes with wound on plantar aspect of 2nd toe exposing to level of bone with concern for necrosis of 2nd digit Neurologic: PERRL, EOMI, accommodation nl, no face palsy, no dysarthria, CN's II-XI intact bilaterally and moves all extremities Psychiatric: A+Ox3, euthymic affect Skin: normal color, warm/dry, + diffuse rash on BUE with dry, eczematous areas with excoriation. BLE with similar appearance with addition of petechia on LLE Results & Data Results & Data Vital Signs (Past 12 Hours) Vital Signs Temp Pulse Resp BP Pulse Ox O2 Del Method O2 Flow Rate 07/10/25 16:13 70 07/10/25 15:42 72 18 168/82 H 99 Nasal Cannula 2 07/10/25 15:15 73 16 139/71 98 Nasal Cannula 2 07/10/25 14:32 37 C 70 18 151/88 H 98 Room Air Laboratory Results Short CBC 07/10/25 Range/Units 15:15 WBC 10.35 (4.8-10.8) K/ul Hgb 10.4 L (12.0-16.0) g/dl Hct 33.0 L (37.0-47.0) % Plt Count 323 (130-400) K/uL BMP 07/10/25 15:15 Sodium 136 Potassium 3.3 L Chloride 102 Carbon Dioxide 26 BUN 14 Creatinine 0.67 Glucose 77 Calcium 8.3 L Liver Function 07/10/25 Range/Units 15:15 Total Bilirubin 0.3 (0.2-1.0) mg/dl AST 19 (13-39) U/L ALT 9 (7-52) U/L Alkaline Phosphatase 105 H (34-104) U/L Albumin 3.7 (3.4-5.0) gm/dl Diagnostic Findings Foot X-Ray 07/10/25 14:46 XR foot LT min 3V routine CLINICAL HISTORY: ulcer, om . Soft tissue ulcer between the first and third digits. COMPARISON: None FINDINGS: No fracture or dislocation. No evidence of osteomyelitis seen. There are atherosclerotic calcifications. There is pes planus. IMPRESSION: No osteomyelitis seen. ACT 112: Negative or not required by law. Electronically signed by: Josef Barrow M.D. 07/10/2025 3:26 PM
[2025-07-10] MEDS: POTASSIUM CHLORIDE CRTAB 20 MEQ TABCR PO STA (16:35)
[2025-07-10] MEDS: VANCOMYCIN HCL 2,000 MG in SODIUM CHLORIDE 0.9% 500 ML IV ONE (16:35)
[2025-07-10] MEDS ORDERED: GLUCOSE 10 TAB/TUBE PO PRN (19:14)
[2025-07-10] MEDS ORDERED: DEXTROSE 50% 50 ML SYRINGE IV PRN (19:14)
[2025-07-10] MEDS ORDERED: GLUCAGON FOR INJ 1 MG VIAL SQ PRN (19:14)
[2025-07-10] MEDS ORDERED: CARBOHYDRATES FOR HYPOGLYCEMIA PO PRN (19:14)
[2025-07-10] MEDS ORDERED: GLUCOSE 40% GEL 15 GM TUBE PO PRN (19:14)
[2025-07-10] MEDS: DAPTOmycin 350 MG in SYRINGE 0 ML IV ONE (19:39)
[2025-07-10] MEDS: CETIRIZINE HCL 10 MG TABLET PO ONE (19:39)
[2025-07-10] MEDS: CEFEPIME 2000MG 2,000 MG/20 ML SYR IV ONE (19:39)
--- NOTE | 2025-07-10 20:04 | Magnetic Resonance Report ---
Exam: MR left foot without contrast. History: Attention left second digit. Evaluate for osteomyelitis. Comparison:None. Technique: Multiplanar multisequence images of the left foot without intravenous contrast were obtained and reviewed. Findings: Significantly limited evaluation secondary to patient motion. Increase soft tissue volume with decreased T1 signal and increased fluid-sensitive signal of the forefoot particular at the level of the second digit noted. No discrete drainable fluid collection. Again details limited secondary to patient motion. No discrete joint effusions. No destructive joint or osseous process. Particular at the level of the second digit. Impression: Limited evaluation secondary to patient motion with forefoot soft tissue swelling most marked at the level of the second digit. No discrete underlying destructive osseous or joint process. Recommend plain film or CT correlation. Please see above for details. Electronically signed by Jim Moreland 07-10-2025 8:04 PM
[2025-07-10] MEDS: INSULIN ASPART PER UNIT CHARGE SC SCH (20:35)
[2025-07-10] MEDS ORDERED: ONDANSETRON INJ 2 MG/ML 2 ML VIAL IV PRN (21:34)
[2025-07-10] MEDS ORDERED: MELATONIN 3 MG TAB PO PRN (21:34)
[2025-07-10] MEDS ORDERED: diphenhydrAMINE Capsule 25 MG CAP PO PRN (21:43)
[2025-07-10] MEDS: BETAMETHASONE VAL 0.1% CR 15 GM EXT SCH (22:27)
[2025-07-10] MEDS: METOPROLOL TARTRATE 50 MG TAB PO SCH (22:29)
[2025-07-10] MEDS: TORSEMIDE 20 MG TAB PO SCH (22:29)
[2025-07-10] MEDS: busPIRone 5 MG TAB PO SCH (22:29)
[2025-07-10] MEDS: FAMOTIDINE 10 MG TABLET PO SCH (22:29)
--- NOTE | 2025-07-10 22:40 | Podiatry Consultation ---
Date of Consultation July 10, 2025 Assessment & Plan (1) Diabetic foot ulcer: Diabetic foot ulcer location: toe Diabetes mellitus type: type 2 Laterality: left Non-pressure ulcer stage: with necrosis of muscle Qualified Code(s): E11.621 - Type 2 diabetes mellitus with foot ulcer; L97.523 - Non- pressure chronic ulcer of other part of left foot with necrosis of muscle (2) Cellulitis of left lower leg: Plan Diabetic ulcer left second toe, cellulitis of left lower extremity - White blood count 10.35, ESR 74, C-reactive protein 0.90, procalcitonin 0.10 - X-ray left foot 07/10/2025 with atherosclerosis and calcifications of the posterior tibial artery noted and swelling of the left second digit. No signs of osteomyelitis on plain film radiograph. - MRI left foot 07/10/2025: Imaging affected by motion artifact. No discrete underlying destructive osseous or joint process. - Lower extremity arterial ultrasound with ABIs: Pending - Wound culture left second toe 07/10/2025: Collected. Pending - Blood culture 07/10/2025: Pending - Order: Postop shoe left foot. Patient okay to weight-bear as tolerated in postop shoe to the left foot. - Order: Dressing change left second toe once daily with Aquacel Ag and a dry sterile dressing. Significant necrosis of the soft tissue on the plantar left second toe making it likely unsalvageable. However, there is no radiographic evidence of osteomyelitis at this time. Superficial necrotic tissue was mechanically removed from the wound bed and wound is flushed prior to culture today. Will reevaluate the ulceration and left second toe in 24 hours and evaluate any significant improvement with IV antibiotics and local wound care. If clinical appearance of the digit remains unchanged on reevaluation will plan for left second toe amputation 07/12/2025. Meanwhile we will evaluate noninvasive vascular studies and consult vascular surgery if needed for further recommendations prior to intervention. History of Present Illness Reason for Consultation: Cellulitis, concern for osteomyelitis, ulceration left second toe Attending Physician: Jose Valencia MD History of Present Illness 74-year-old female past medical history significant for type 2 diabetes with diabetic peripheral neuropathy, venous stasis ulceration of the right lower extremity, heart failure, hypertension, CAD, aortic valve replacement, TIA, dyslipidemia. Presents to [facility] emergency department at the urging of her PCP for evaluation of ulceration of the left second toe with associated cellulitis of the left lower extremity. Patient reports noting increased discomfort to the left foot and specifically the left second toe for approximately 5 days. On evaluation of the foot yesterday she noted bleeding and reported to her primary care office for evaluation. Her PCP encouraged her to report to the emergency department. She denies nausea, vomiting, fever, c hills. Denies pain in the left foot due to dense diabetic peripheral neuropathy. Allergies Allergy/AdvReac Type Severity Reaction Status Date / Time Sulfa (Sulfonamide Allergy Intermediate HIVES Verified 03/28/21 12:16 Antibiotics) phentermine AdvReac Severe Seizure Verified 03/28/21 12:16 activity or cardiac arrest - pt unsure tramadol AdvReac Intermediate Seizure Verified 03/28/21 12:16 activity Home Medications Medication Instructions Recorded Confirmed Type aspirin 81 mg tablet,delayed 81 mg PO QAM 03/28/21 07/10/25 History release atorvastatin 20 mg tablet 20 mg PO HS 03/28/21 07/10/25 History buspirone 10 mg tablet 10 mg PO TID 03/28/21 07/10/25 History cyanocobalamin (vitamin B-12) 1,000 mcg PO QAM 03/28/21 07/10/25 History 1,000 mcg tablet (Vitamin B-12) diphenhydramine 25 1 tab PO HS PRN Sleep 03/28/21 07/10/25 History mg-acetaminophen 500 mg tablet (Tylenol PM Extra Strength) famotidine 10 mg tablet (Acid 10 mg PO BID 03/28/21 07/10/25 History Manager [employer] (famotidine)) ferrous sulfate 325 mg (65 mg 325 mg PO QAM 03/28/21 07/10/25 History iron) tablet (iron) levothyroxine 100 mcg tablet 100 mcg PO DAILYBB 03/28/21 07/10/25 History metformin 500 mg tablet 500 mg PO BIDM 03/28/21 07/10/25 History metoprolol tartrate 50 mg tablet 50 mg PO BID 03/28/21 07/10/25 History potassium chloride 10 mEq 10 meq PO QAM 03/28/21 07/10/25 History tablet,extended release(part/cryst) spironolactone 25 mg tablet 12.5 mg PO QAM 03/28/21 07/10/25 History torsemide 20 mg tablet 20 mg PO BID 03/28/21 07/10/25 History duloxetine 60 mg capsule,delayed 60 mg PO DAILY 07/10/25 07/10/25 History release Patient History Medical History (Updated 07/10/25 @ 22:57 by Frantz Combs DPM) Hypertension Ambulatory dysfunction Hypothyroidism Mood disorder Dyslipidemia CAD (coronary artery disease) DM (diabetes mellitus), type 2 Chronic diastolic heart failure Family History (Updated 07/10/25 @ 19:19 by Zulma Gutiérrez PA-C) Other Diabetes Social History Smoking Status: Never smoker Preferred Language: Bengali Feels Safe at Home: Yes Review of Systems Review of Systems: Denies nausea, vomiting, fever, chills, shortness of breath, chest pain. Physical Exam Physical Exam: Const: Appears well developed and well nourished. No signs of acute distress present. CV: Extremities: No cyanosis or edema. Capillary refill time is less than 2 seconds all digits of the bilateral foot. Posterior tibial and dorsalis pedis pulses are none palpable bilateral. Lymph: No palpable or visible regional lymphadenopathy. Skin: No scars, rashes, lesions or ecchymosis. Neuro: Loss of protective sensation bilateral foot Psych: Mood/Affect: Mood is normal. Affect is normal. Cognition: Orientation is intact to person, place and time. Focused lower extremity musculoskeletal exam: Leg: No pain with compression of the calf muscle. Feet: Necrotic ulcer to the plantar aspect of the left second toe extends to the level of tendon and joint capsule. No frankly exposed bone to the wound bed. Pathologic rupture of the flexor digitorum longus to the second digit. Necrotic tissue with mild malodor noted. Erythema and edema extending to the left ankle. Results & Data Vital Signs (Past 12 Hours) Vital Signs Temp Pulse Resp BP Pulse Ox O2 Del Method O2 Flow Rate 07/10/25 20:30 147/90 H 07/10/25 20:06 75 23 129/104 H 83 L 07/10/25 18:06 75 12 144/68 H 98 07/10/25 17:00 73 26 H 153/105 H 93 07/10/25 16:54 73 19 138/67 92 07/10/25 16:13 70 07/10/25 16:12 73 15 153/72 H 100 07/10/25 15:42 72 18 168/82 H 99 Nasal Cannula 2 07/10/25 15:15 73 16 139/71 98 Nasal Cannula 2 07/10/25 14:32 37 C 70 18 151/88 H 98 Room Air Diagnostic Findings MRI left foot 07/10/2025: Impression: Limited evaluation secondary to patient motion with forefoot soft tissue swelling most marked at the level of the second digit. No discrete underlying destructive osseous or joint process. Recommend plain film or CT correlation. Please see above for details. Electronically signed by Jim Moreland 07-10-2025 8:04 PM X-ray left foot 07/10/2025:IMPRESSION: No osteomyelitis seen. PG Care Time/CCT Total # of Minutes Spent Total Time Spent with Patient: Total time spent is greater than 50% in coordination of care (as documented) at patient's floor/unit and/or counseling patient: Coding Level of Care Code 68478 INT INP/OBS CARE 3/75MIN Diagnoses Diabetic ulcer of toe of left foot associated with type 2 diabetes mellitus, with necrosis of muscle E11.621; L97.523 Diabetic foot ulcer location: toe Diabetes mellitus type: type 2 Laterality: left Non-pressure ulcer stage: with necrosis of muscle Cellulitis of left lower leg L03.116
[2025-07-11] MEDS: CEFEPIME 2000MG 2,000 MG/20 ML SYR IV SCH (03:45)
[2025-07-11] MEDS: ACETAMINOPHEN 500 MG TAB PO PRN (03:51)
[2025-07-11] MEDS: LEVOTHYROXINE SODIUM 100 MCG TABLET PO SCH (06:27)
--- NOTE | 2025-07-11 07:09 | Ultrasound Report ---
EXAM: US arterial duplex LE BI CLINICAL HISTORY: Left 2nd toe ulcer. TECHNIQUE: Ultrasound examination of the bilateral lower extremity arteries was performed in real time and duplex. One or more of the following were performed: spectral analysis, resistive index, waveform analysis, and pulsed Doppler. COMPARISON: None. FINDINGS: Multiple calcified mural plaques are noted in the arteries of both lower extremities. Focal increased velocity of the left common iliac artery, measuring up to 443 cm/s, is suggestive of more than 90% stenosis. Generalized increased peak systolic velocity is present throughout the bilateral lower extremity arteries. Increased systolic velocities of the arteries of both lower extremities suggest approximately 50% to 80% stenosis. Unable to obtain VIVIANE/TBI due to restless legs and uncontrollable foot movement throughout the examination. Collateral Circulation: Evaluation of collateral vessels: No significant collateral circulation is noted, indicative of chronic arterial occlusion. Additional Findings: None. Vessel Flow Pattern Right Peak Velocity Right (cm/sec) Flow Pattern Left Peak Velocity Left (cm/sec) Right external iliac artery Monophasic 266 Monophasic 235/443 Common Femoral Artery (ROAD ROLLER OPERATOR HOT MIX) Triphasic Prox: 239 Dist: 143 Monophasic 258 Deep Femoral Artery (DFA) Biphasic 140 Triphasic 124 Superficial Femoral Artery (SFA) Triphasic Prox: 148 Med: 172 Distal: 172 Triphasic Proximal: 159 Med: 109 Distal: 179 Popliteal Artery (POP A) Triphasic Proximal: 146 Distal: 104 Monophasic Proximal: 192 Distal: 130 Posterior Tibial Artery (COPYRIGHT MANAGER), proximal Monophasic 122 Monophasic 151 Posterior Tibial Artery (COPYRIGHT MANAGER), distal Monophasic 136 Monophasic 133 Peroneal Artery (PA) Monophasic Proximal: 49 Distal: 67 Monophasic Proximal: 71 Distal: 85 Anterior Tibial Artery (LILIANA) Triphasic Proximal: 108 Distal: 73 Triphasic Proximal: 143 Distal: 150 Dorsalis Pedis Artery (DPA) Triphasic 181 Monophasic 187 IMPRESSION: 1. Multiple calcified mural plaques are noted in the arteries of both lower extremities. 2. Focal increased velocity of the left common iliac artery, measuring up to 443 cm/s. 3. Generalized increased peak systolic velocity is present throughout the bilateral lower extremity arteries. 4. Increased systolic velocities of the arteries of both lower extremities could be due to stenosis. 5. Unable to obtain VIVIANE/TBI due to restless legs and uncontrollable foot movement throughout the examination. 6. Clinical correlation and CT angiography of both lower extremities may be advised. Electronically signed by Angel Morris 07-11-2025 07:08 AM
[2025-07-11 07:10] LABS: Hematocrit (blood only) 28.6 % (37.0-47.0); Hemoglobin 9.6 g/dl (12.0-16.0); Mean Corpuscular Hemoglobin 31.9 pg (25.0-34.0); Mean Corpuscular Volume 95.0 fL (80.0-100.0); Platelet Count 282 K/uL (130-400); RDW Standard Deviation 45.0 fL (36.4-46.3); Red Blood Count 3.01 M/uL (4.20-5.40); White Blood Count 8.88 K/ul (4.8-10.8)
[2025-07-11 07:38] LABS: Anion Gap 8.0 (3-11); Blood Urea Nitrogen 12.0 mg/dl (6-23); Calcium 7.9 mg/dl (8.6-10.3); Carbon Dioxide 28.0 mmol/L (21-32); Chloride 104.0 mmol/L (98-107); Creatinine Clr Calc Pharmacy 78.7 ml/min; Glucose 102.0 mg/dl (70-99(Fasting)); Magnesium 1.2 mg/dl (1.7-2.4); Potassium 3.4 mmol/L (3.5-5.1); Sodium 140.0 mmol/L (136-145)
[2025-07-11 07:52] LABS: Hemoglobin A1C 5.3 % (4.5-5.6)
[2025-07-11] MEDS: CETIRIZINE HCL 10 MG TABLET PO SCH (08:01)
[2025-07-11] MEDS: FERROUS SULFATE 325 MG TAB PO SCH (08:02)
[2025-07-11] MEDS: CYANOCOBALAMIN (B-12) 500 MCG TABLET PO SCH (08:02)
[2025-07-11] MEDS: ASPIRIN 81 MG ECTAB PO SCH (08:02)
[2025-07-11] MEDS: POTASSIUM CHLORIDE 10 MEQ TABCR PO SCH (08:08)
[2025-07-11] MEDS: MAGNESIUM SULFATE / D5W 1 GM/100 ML BAG IV SCH (09:30)
[2025-07-11] MEDS: POTASSIUM CHLORIDE CRTAB 20 MEQ TABCR PO STA (09:30)
--- NOTE | 2025-07-11 13:17 | Vascular Surgery Consultation ---
Date of Consultation July 11, 2025 Assessment & Plan (1) Diabetic foot ulcer: necrotic ulcer to left 2nd toe, plantar aspect, down to tendon, with associated cellulitis Discussed with Dr. Combs- wound improved today with debridement and IV antibiotics-no current plan for amputation. Reviewed arterial duplex-she does have multi-level arterial disease in the left leg, and given significantly elevated velocity in left iliac, would need CTA with runoff before any vascular intervention. Her Cr and GFR is acceptable for imaging with contrast at this time. Will wait to order CTA until we see how wound is improving or not improving with local wound care and antibiotics. Diabetic foot ulcer location: toe Diabetes mellitus type: type 2 Laterality: left Non-pressure ulcer stage: with necrosis of muscle Qualified Code(s): E11.621 - Type 2 diabetes mellitus with foot ulcer; L97.523 - Non- pressure chronic ulcer of other part of left foot with necrosis of muscle (2) Peripheral arterial disease: diagnostic studies reviewed. VIVIANE/TBI unable to be obtained due to patient's restlessness, however duplex showed multilevel arterial disease, especially on the left, although flow is noted in foot on duplex and on exam with doppler this afternoon. Discussed with Dr. Combs-no amputation needed at this time. Local wound care/debridement will be done and IV antibiotics continued. Can consider CTA with runoff to evaluate further if wound is slow to heal, for planning for potential vascular intervention. Cr and GFR currently acceptable for contrast, and she is not currently on Metformin, which would make getting CTA in house easier. History of Present Illness Reason for Consultation: left second toe necrotic wound, may need amputation Requesting Physician: Dr. Frantz Combs Attending Physician: Del Hernandes MD History of Present Illness Ms. Perez is a pleasant 74 year old female who we are being asked to see in consultation for left second toe necrotic wound, in the setting of vascular disease. History was obtained from patient, as well as review of medical records and discussion with medical personnel. She has a past medical history significant for type 2 DM, diabetic neuropathy, HFpEF, HTN, CAD, history of aortic valve replacement, history of TIA, dyslipidemia, obesity, hypothyroidism and anxiety. She presented to the ED yesterday by her PCP due to worsening left 2nd toe wound. She has home nursing/caregiver set up at home, and her caregiver noted the wound on her foot 2 days ago with clear drainage, and she followed up with her PCP the following day (yesterday), where the wound appeared worse. In the ED lab work did not reveal any leukocytosis but she was noted to have elevated CRP and elevated ESR. Xray of her left foot did not reveal any osteomyelitis. Broad spectrum antibiotics were started (Cefepime and Daptomycin), and MRI foot was ordered for further evaluation, along with podiatry consult and vascular studies. MRI was limited by motion artifact, however did not see any underlying destructive osseous or joint process. Wound was debrided bedside by podiatry yesterday, and cultured, with cultures growing Staph Aureus. Diagnostic vascular testing with bilateral arterial duplex was completed. ABIs unable to be completed due to patient's restless legs. Arterial duplex demonstrated significantly elevated velocity in a focal area of the left iliac artery (443cm/s), along with elevated velocities in L SUBMARINE OPERATOR (258cm/s). Overall she was noted to have generalized elevated velocities throughout the left leg. Today she tells me she feels well, and just got done eating lunch. She is unsure how long the wound on her toe has been present, but tells me her caregiver just noted it the other day. She has neuropathy in her feet and denies any pain in her feet at rest or during the night. She does not walk much and when she does she uses a walker for balance, and denies any pain or cramping in her legs with walking. She denies nausea, vomiting or diarrhea. She is a non-smoker. She tells me her diabetes is pretty well controlled on her pill (metformin) she thinks. She has chronic swelling in her right leg, for which she has cosme hose that she doesn't usually wear. She is on aspirin and statin at home. Cr 0.6, GFR 95. Allergies Allergy/AdvReac Type Severity Reaction Status Date / Time Sulfa (Sulfonamide Allergy Intermediate HIVES Verified 03/28/21 12:16 Antibiotics) phentermine AdvReac Severe Seizure Verified 03/28/21 12:16 activity or cardiac arrest - pt unsure tramadol AdvReac Intermediate Seizure Verified 03/28/21 12:16 activity Home Medications Medication Instructions Recorded Confirmed Type aspirin 81 mg tablet,delayed 81 mg PO QAM 03/28/21 07/10/25 History release atorvastatin 20 mg tablet 20 mg PO HS 03/28/21 07/10/25 History buspirone 10 mg tablet 10 mg PO TID 03/28/21 07/10/25 History cyanocobalamin (vitamin B-12) 1,000 mcg PO QAM 03/28/21 07/10/25 History 1,000 mcg tablet (Vitamin B-12) diphenhydramine 25 1 tab PO HS PRN Sleep 03/28/21 07/10/25 History mg-acetaminophen 500 mg tablet (Tylenol PM Extra Strength) famotidine 10 mg tablet (Acid 10 mg PO BID 03/28/21 07/10/25 History Twitchell Operator (famotidine)) ferrous sulfate 325 mg (65 mg 325 mg PO QAM 03/28/21 07/10/25 History iron) tablet (iron) levothyroxine 100 mcg tablet 100 mcg PO DAILYBB 03/28/21 07/10/25 History metformin 500 mg tablet 500 mg PO BIDM 03/28/21 07/10/25 History metoprolol tartrate 50 mg tablet 50 mg PO BID 03/28/21 07/10/25 History potassium chloride 10 mEq 10 meq PO QAM 03/28/21 07/10/25 History tablet,extended release(part/cryst) spironolactone 25 mg tablet 12.5 mg PO QAM 03/28/21 07/10/25 History torsemide 20 mg tablet 20 mg PO BID 03/28/21 07/10/25 History duloxetine 60 mg capsule,delayed 60 mg PO DAILY 07/10/25 07/10/25 History release Patient History Medical History Hypertension Ambulatory dysfunction Hypothyroidism Mood disorder Dyslipidemia CAD (coronary artery disease) DM (diabetes mellitus), type 2 Chronic diastolic heart failure Family History Other Diabetes Social History Smoking Status: Never smoker Tobacco Type: Declines Hx Alcohol Use: No Hx Substance Use: No Preferred Language: Pashto Communication Ability: Effective Junior Recruiter Required: No Beliefs That Will Affect Care: None Current Living Situation: Family Current Living Situation Comment: With sister Teresita and has caregiver Feels Safe at Home: Yes Assistive Devices: Denture - Upper and Walker Review of Systems Constitutional: denies fevers, chills, sweats, fatigue Respiratory: denies shortness of breath, cough, wheezing Cardiovascular: Additional Comments: denies chest pain, dyspnea on exertion, palpitations Gastrointestinal: denies nausea, vomiting, diarrhea Musculoskeletal: + chronic right leg swelling, negative f or any other joint pain or swelling, ambulates with walker Integumentary: see HPI Neurologic: positive for neuropathy in feet, denies any weakness in one arm or one leg or difficulty speaking, denies headache Physical Exam Constitutional: WDWN, sitting in chair by bed eating lunch, pleasant and talkative, in no distress Eyes: PERRLA Neck: supple, trachea midline, no lymphadenopathy noted Respiratory: no accessory muscle use, no increased work of breathing, lungs CTAB, no wheezes rales or rhonchi. Cardiovascular: RRR, no murmurs noted +2 radial pulses bilaterally +2 right femoral pulse, +1 left femoral pulse Difficult to palpate DP and PT. DP signal on right is biphasic, PT signal on right is biphasic. DP signal on left is biphasic down to the great toe. PT signal on left is biphasic. Gastrointestinal (Abdomen): nondistended, soft, NTTP. bowel sounds present. No bruits. Musculoskeletal: + small varicosities and reticular veins noted right ankle. no tenderness to palpation over bilateral lower extremities no cyanosis or clubbing noted. + trace edema in RLE + erythema, warmth and edema noted start ing in toes on LLE and extending proximal to just above ankle. Skin: LLE: dry necrotic wound noted to plantar surface of left 2nd toe, does not probe to bone. + erythema and edema, to include blistering, noted to toes 3-5 as well. Neurologic: CN II-XII grossly intact, decreased sensation to feet bilaterally Results & Data Vital Signs (Past 12 Hours) Vital Signs Temp Pulse Resp BP Pulse Ox O2 Del Method 07/11/25 07:51 37.5 C 85 16 112/56 L 93 Room Air Laboratory Results 07/10/25 18:00 Gram Stain - Final Toe Aerobic and Anaerobic Culture - Preliminary Staphylococcus aureus Enterobacter cloacae complex 07/10/25 15:10 Aerobic Blood Culture - Pending Blood Anaerobic Blood Culture - Pending 07/10/25 15:15 Aerobic Blood Culture - Pending Blood Anaerobic Blood Culture - Pending 07/11/25 07/11/25 07/11/25 11:13 06:42 06:25 WBC 8.88 RBC 3.01 L Hgb 9.6 L Hct 28.6 L MCV 95.0 MCH 31.9 MCHC 33.6 RDW Std Deviation 45.0 RDW Coeff of Yohana 13.1 Plt Count 282 MPV 8.6 L Immature Gran % (Auto) Neut % (Auto) Lymph % (Auto) [place] % (Auto) Eos % (Auto) Baso % (Auto) Neut # (Auto) Lymph # (Auto) [place] # (Auto) Eos # (Auto) Baso # (Auto) Immature Gran # (Auto) ESR PT INR Sodium 140 Potassium 3.4 L Chloride 104 Carbon Dioxide 28 Anion Gap 8 BUN 12 Creatinine 0.60 Est Cr Clr Drug Dosing 78.7 eGFR 95.31 BUN/Creatinine Ratio 20.0 Glucose 102 H POC Glucose 139 H 107 H Estimat Average Glucose 105 Hemoglobin A1c 5.3 Calcium 7.9 L Magnesium 1.2 L Total Bilirubin AST ALT Alkaline Phosphatase C-Reactive Protein Total Protein Albumin Globulin Albumin/Globulin Ratio Procalcitonin Nasal Screen MRSA (PCR) 07/10/25 07/10/25 07/10/25 21:42 19:53 15:17 WBC RBC Hgb Hct MCV MCH MCHC RDW Std Deviation RDW Coeff of Yohana Plt Count MPV Immature Gran % (Auto) Neut % (Auto) Lymph % (Auto) [place] % (Auto) Eos % (Auto) Baso % (Auto) Neut # (Auto) Lymph # (Auto) [place] # (Auto) Eos # (Auto) Baso # (Auto) Immature Gran # (Auto) ESR PT INR Sodium Potassium Chloride Carbon Dioxide Anion Gap BUN Creatinine Est Cr Clr Drug Dosing eGFR BUN/Creatinine Ratio Glucose POC Glucose 131 H 76 Estimat Average Glucose Hemoglobin A1c Calcium Magnesium Total Bilirubin AST ALT Alkaline Phosphatase C-Reactive Protein Total Protein Albumin Globulin Albumin/Globulin Ratio Procalcitonin Nasal Screen MRSA (PCR) Negative 07/10/25 07/10/25 15:15 15:10 WBC 10.35 RBC 3.39 L Hgb 10.4 L Hct 33.0 L MCV 97.3 MCH 30.7 MCHC 31.5 L RDW Std Deviation 47.7 H RDW Coeff of Yohana 13.3 Plt Count 323 MPV 8.6 L Immature Gran % (Auto) 0.5 Neut % (Auto) 71.5 Lymph % (Auto) 14.3 [place] % (Auto) 10.3 Eos % (Auto) 2.8 Baso % (Auto) 0.6 Neut # (Auto) 7.40 H Lymph # (Auto) 1.48 [place] # (Auto) 1.07 H Eos # (Auto) 0.29 Baso # (Auto) 0.06 Immature Gran # (Auto) 0.05 ESR 74 H PT 11.1 INR 1.0 Sodium 136 Potassium 3.3 L Chloride 102 Carbon Dioxide 26 Anion Gap 8 BUN 14 Creatinine 0.67 Est Cr Clr Drug Dosing 72.3 eGFR 92.81 BUN/Creatinine Ratio 20.9 H Glucose 77 POC Glucose Estimat Average Glucose Hemoglobin A1c Calcium 8.3 L Magnesium Total Bilirubin 0.3 AST 19 ALT 9 Alkaline Phosphatase 105 H C-Reactive Protein 0.90 H Total Protein 8.0 Albumin 3.7 Globulin 4.3 H Albumin/Globulin Ratio 0.9 Procalcitonin 0.10 Nasal Screen MRSA (PCR) Diagnostic Findings Foot X-Ray 07/10/25 14:46 XR foot LT min 3V routine CLINICAL HISTORY: ulcer, om . Soft tissue ulcer between the first and third digits. COMPARISON: None FINDINGS: No fracture or dislocation. No evidence of osteomyelitis seen. There are atherosclerotic calcifications. There is pes planus. IMPRESSION: No osteomyelitis seen. ACT 112: Negative or not required by law. Electronically signed by: Josef Barrow M.D. 07/10/2025 3:26 PM Foot MRI 07/10/25 16:51 Exam: MR left foot without contrast. History: Attention left second digit. Evaluate for osteomyelitis. Comparison:None. Technique: Multiplanar multisequence images of the left foot without intravenous contrast were obtained and reviewed. Findings: Significantly limited evaluation secondary to patient motion. Increase soft tissue volume with decreased T1 signal and increased fluid-sensitive signal of the forefoot particular at the level of the second digit noted. No discrete drainable fluid collection. Again details limited secondary to patient motion. No discrete joint effusions. No destructive joint or osseous process. Particular at the level of the second digit. Impression: Limited evaluation secondary to patient motion with forefoot soft tissue swelling most marked at the level of the second digit. No discrete underlying destructive osseous or joint process. Recommend plain film or CT correlation. Please see above for details. Electronically signed by Jim Moreland 07-10-2025 8:04 PM Duplex Scan Lower Extremity Artery 07/11/25 00:00 EXAM: US arterial duplex LE BI CLINICAL HISTORY: Left 2nd toe ulcer. TECHNIQUE: Ultrasound examination of the bilateral lower extremity arteries was performed in real time and duplex. One or more of the following were performed: spectral analysis, resistive index, waveform analysis, and pulsed Doppler. COMPARISON: None. FINDINGS: Multiple calcified mural plaques are noted in the arteries of both lower extremities. Focal increased velocity of the left common iliac artery, measuring up to 443 cm/s, is suggestive of more than 90% stenosis. Generalized increased peak systolic velocity is present throughout the bilateral lower extremity arteries. Increased systolic velocities of the arteries of both lower extremities suggest approximately 50% to 80% stenosis. Unable to obtain VIVIANE/TBI due to restless legs and uncontrollable foot movement throughout the examination. Collateral Circulation: Evaluation of collateral vessels: No significant collateral circulation is noted, indicative of chronic arterial occlusion. Additional Findings: None. Vessel Flow Pattern Right Peak Velocity Right (cm/sec) Flow Pattern Left Peak Velocity Left (cm/sec) Right external iliac artery Monophasic 266 Monophasic 235/443 Common Femoral Artery (SUBMARINE OPERATOR) Triphasic Prox: 239 Dist: 143 Monophasic 258 Deep Femoral Artery (DFA) Biphasic 140 Triphasic 124 Superficial Femoral Artery (SFA) Triphasic Prox: 148 Med: 172 Distal: 172 Triphasic Proximal: 159 Med: 109 Distal: 179 Popliteal Artery (POP A) Triphasic Proximal: 146 Distal: 104 Monophasic Proximal: 192 Distal: 130 Posterior Tibial Artery (COMMUNICATIONS AND SIGNALS SUPERVISOR), proximal Monophasic 122 Monophasic 151 Posterior Tibial Artery (COMMUNICATIONS AND SIGNALS SUPERVISOR), distal Monophasic 136 Monophasic 133 Peroneal Artery (PA) Monophasic Proximal: 49 Distal: 67 Monophasic Proximal: 71 Distal: 85 Anterior Tibial Artery (LILIANA) Triphasic Proximal: 108 Distal: 73 Triphasic Proximal: 143 Distal: 150 Dorsalis Pedis Artery (DPA) Triphasic 181 Monophasic 187 IMPRESSION: 1. Multiple calcified mural plaques are noted in the arteries of both lower extremities. 2. Focal increased velocity of the left common iliac artery, measuring up to 443 cm/s. 3. Generalized increased peak systolic velocity is present throughout the bilateral lower extremity arteries. 4. Increased systolic velocities of the arteries of both lower extremities could be due to stenosis. 5. Unable to obtain VIVIANE/TBI due to restless legs and uncontrollable foot movement throughout the examination. 6. Clinical correlation and CT angiography of both lower extremities may be advised. Electronically signed by Angel Morris 07-11-2025 07:08 AM Medications Administered Home Medications Medication Instructions Recorded Confirmed Last Taken aspirin 81 mg tablet,delayed 81 mg PO QAM 03/28/21 07/10/25 03/28/21 release atorvastatin 20 mg tablet 20 mg PO HS 03/28/21 07/10/25 03/28/21 buspirone 10 mg tablet 10 mg PO TID 03/28/21 07/10/25 03/27/21 cyanocobalamin (vitamin B-12) 1,000 mcg PO QAM 03/28/21 07/10/25 03/28/21 1,000 mcg tablet (Vitamin B-12) diphenhydramine 25 1 tab PO HS PRN Sleep 03/28/21 07/10/25 03/27/21 mg-acetaminophen 500 mg tablet 2 tabs (Tylenol PM Extra Strength) famotidine 10 mg tablet (Acid 10 mg PO BID 03/28/21 07/10/25 03/28/21 Twitchell Operator (famotidine)) ferrous sulfate 325 mg (65 mg 325 mg PO QAM 03/28/21 07/10/25 03/28/21 iron) tablet (iron) levothyroxine 100 mcg tablet 100 mcg PO DAILYBB 03/28/21 07/10/25 03/28/21 metformin 500 mg tablet 500 mg PO BIDM 03/28/21 07/10/25 03/28/21 metoprolol tartrate 50 mg tablet 50 mg PO BID 03/28/21 07/10/25 03/28/21 potassium chloride 10 mEq 10 meq PO QAM 03/28/21 07/10/25 03/28/21 tablet,extended release(part/cryst) spironolactone 25 mg tablet 12.5 mg PO QAM 03/28/21 07/10/25 03/28/21 torsemide 20 mg tablet 20 mg PO BID 03/28/21 07/10/25 03/28/21 1 tab duloxetine 60 mg capsule,delayed 60 mg PO DAILY 07/10/25 07/10/25 Unknown release Active Medications Generic Name Dose Route Start Last Admin Trade Name Freq PRN Reason Stop Dose Admin Acetaminophen 1,000 mg 07/10/25 18:41 07/11/25 03:51 Acetaminophen 500 Mg Tab PO 08/09/25 18:40 1,000 mg Q8H PRN Administration Pain or Fever Aspirin 81 mg 07/11/25 09:00 07/11/25 08:02 Aspirin 81 Mg Ectab PO 08/10/25 08:59 81 mg QAM MELANIA Administration Betamethasone Valerate 1 appln 07/10/25 21:00 07/11/25 08:01 Betamethasone Rosalina 0.1% Cr 15 Gm EXT 08/09/25 20:59 1 appln BID MELANIA Administration Buspirone HCl 10 mg 07/10/25 21:34 07/11/25 08:01 Buspirone 5 Mg Tab PO 08/09/25 21:33 10 mg TID MELANIA Administration Cetirizine HCl 10 mg 07/11/25 09:00 07/11/25 08:01 Cetirizine Hcl 10 Mg Tablet PO 08/10/25 08:59 10 mg QAM MELANIA Administration Cyanocobalamin 1,000 mcg 07/11/25 09:00 07/11/25 08:02 Cyanocobalamin (B-12) 500 Mcg Tablet PO 08/10/25 08:59 1,000 mcg QAM MELANIA Administration Duloxetine HCl 60 mg 07/11/25 09:00 07/11/25 08:02 Duloxetine Hcl 60 Mg Cap PO 08/10/25 08:59 60 mg DAILY MELANIA Administration Famotidine 10 mg 07/10/25 21:34 07/11/25 08:02 Famotidine 10 Mg Tablet PO 08/09/25 21:33 10 mg BID MELANIA Administration Ferrous Sulfate 325 mg 07/11/25 09:00 07/11/25 08:02 Ferrous Sulfate 325 Mg Tab PO 08/10/25 08:59 325 mg QAM MELANIA Administration Cefepime HCl 2,000 mg in 20 mls @ 5 mls/min 07/11/25 04:00 07/11/25 12:23 Maxipime 2000mg IV 07/18/25 03:59 5 mls/min Q8H MELANIA Administration Protocol Insulin Aspart 0 units 07/10/25 19:15 07/11/25 12:11 Insulin Aspart Per Unit Charge SC 08/09/25 19:14 3 units ACHS MELANIA Administration Levothyroxine Sodium 100 mcg 07/11/25 06:30 07/11/25 06:27 Levothyroxine Sodium 100 Mcg Tablet PO 08/10/25 06:29 100 mcg DAILYBB MELANIA Administration Metoprolol Tartrate 50 mg 07/10/25 21:34 07/11/25 08:02 Metoprolol Tartrate 50 Mg Tab PO 08/09/25 21:33 50 mg BID MELANIA Administration Oxycodone HCl 5 mg 07/10/25 18:21 07/11/25 08:00 Oxycodone Hcl Ir 5 Mg Tab (Immediate Release) PO 07/24/25 18:20 5 mg Q8H PRN Administration Mod-Sev Pain (Scale 4-10) Potassium Chloride 10 meq 07/11/25 09:00 07/11/25 08:08 Potassium Chloride 10 Meq Tabcr PO 08/10/25 08:59 10 meq QAM MELANIA Administration Torsemide 20 mg 07/10/25 21:34 07/11/25 08:02 Torsemide 20 Mg Tab PO 08/09/25 21:33 20 mg BID MELANIA Administration PG Care Time/CCT Total # of Minutes Spent Total Time Spent with Patient: Total time spent is greater than 50% in coordination of care (as documented) at patient's floor/unit and/or counseling patient: [place] [address] INT INP/OBS CARE 2/55MIN Patient Type New History Detailed Exam Detailed Medical Decision Making High Complexity Diagnoses Diabetic ulcer of toe of left foot associated with type 2 diabetes mellitus, with necrosis of muscle E11.621; L97.523 Diabetic foot ulcer location: toe Diabetes mellitus type: type 2 Laterality: left Non-pressure ulcer stage: with necrosis of muscle Peripheral arterial disease I73.9
--- NOTE | 2025-07-11 15:04 | Hospitalist Progress Note ---
Date of Service July 11, 2025 Assessment & Plan (1) Diabetic foot ulcer: (2) Hypokalemia: (3) Cellulitis of left lower leg: (4) Chronic diastolic heart failure: (5) DM (diabetes mellitus), type 2: (6) CAD (coronary artery disease): (7) Dyslipidemia: (8) Mood disorder: (9) Hypothyroidism: (10) Ambulatory dysfunction: (11) Hypertension: Plan This is a 74yo F with PMH of Type 2 diabetes, heart failure with preserved EF, hypertension, mild CAD, morbid obesity, anxiety, history of aortic valve replacement, history of TIA, dyslipidemia and other medical problems as below who was sent in by PCP for concern of worsening diabetic wound. Left foot diabetic ulcer Left lower extremity cellulitis Sent in by PCP for progressing wound of 2-4th L toes, primarily 2nd ESR 74, CRP 0.90 Foot XR without osteomyelitis seen ED discussed with Dr. Combs, who evaluated patient and added on Foot MRI - pending Continue broad abx coverage with Cefepime and Dapto Wound culture is growing Staphylococcus aureus and Enterobacter cloacae complexsensitivities are pending Scheduled tylenol, oxycodone for breakthrough pain NPO @ midnight for possible debridement tomorrow Patient denies any pain and no other significant symptoms Diffuse rash,? Atopic dermatitis Diffuse BUE and BLE rash noted on exam, has been mentioned on previous outpatient notes as well Patient has been using calamine lotion at home Added Zyrtec, steroid cream BID, continue famotidine Only new meds were duloxetine started in April 2025, also completed a 10d Keflex course in April Monitor -rash seems to have improved Hypokalemia Initial K 3.3 - replaced, monitor Potassium replaced orally 40+10 mEq and magnesium replaced intravenously 2 g Will monitor electrolytes HFpEF Appears euvolemic. Continue home torsemide, spironolactone, Lopressor No signs and/or symptoms of fluid overload DM II Hold home agents SSI while in-patient BSG AC HS A1c added for AM --5.3 CAD Dyslipidemia Continue aspirin, hold statin while on dapto Mood disorder Continue home buspirone 10mg TID, duloxetine 60nf daily Ambulatory dysfunction Ambulates with a walker at home, more difficult with R foot wound PT/Ot evals, fall precautions DVT Ppx: SCDs for now Code status: FULL PCP: Jesus Dispo: Admitted to med/surg Admission and Anticipated Discharge Date Admission Date: July 10, 2025 Subjective The patient was seen and examined in medical floor She does not have any complaints and awaiting possible surgery tomorrow for left foot Denies any fever and/or chills No neck pain or foot pain no other significant symptoms Review of Systems Review of Systems: All systems reviewed and unremarkable except as noted below Physical Exam Physical Exam: Sitting in a chair without any acute distress Constitutional: well developed and well nourished; not ill appearing Eyes: PERRL, conjunctivae normal, anicteric sclerae ENMT: external ear and nose normal, oropharynx normal Neck: trachea midline, no thyromegaly Respiratory: no respiratory distress Auscultation: lungs clear to auscultation bilaterally Cardiovascular: Rate/Rhythm: regular rate and regular rhythm; not tachycardic Heart Sounds: normal S1 and normal S2; no murmur Extremities: no edema Left follow-up wound culture. Wound culture showing Foot is bandaged Gastrointestinal (Abdomen): Inspection/Auscultation: normal bowel sounds; abdomen not distended Percussion/Palpation: abdomen soft; abdomen nontender Musculoskeletal: No acute arthritis involving any of the joint Neurologic: normal touch/pain/proprioception and moves all extremities; no focal motor deficits Lymphatic: no cervical or axillary lymphadenopathy Results & Data Results & Data Vital Signs (Past 12 Hours) Vital Signs Temp Pulse Resp BP Pulse Ox O2 Del Method 07/11/25 08:00 Room Air 07/11/25 07:51 37.5 C 85 16 112/56 L 93 Room Air Laboratory Results Short CBC 07/10/25 07/11/25 Range/Units 15:15 06:42 WBC 10.35 8.88 (4.8-10.8) K/ul Hgb 10.4 L 9.6 L (12.0-16.0) g/dl Hct 33.0 L 28.6 L (37.0-47.0) % Plt Count 323 282 (130-400) K/uL BMP 07/10/25 07/11/25 15:15 06:42 Sodium 136 140 Potassium 3.3 L 3.4 L Chloride 102 104 Carbon Dioxide 26 28 BUN 14 12 Creatinine 0.67 0.60 Glucose 77 102 H Calcium 8.3 L 7.9 L Liver Function 07/10/25 Range/Units 15:15 Total Bilirubin 0.3 (0.2-1.0) mg/dl AST 19 (13-39) U/L ALT 9 (7-52) U/L Alkaline Phosphatase 105 H (34-104) U/L Albumin 3.7 (3.4-5.0) gm/dl Medications Administered Current Inpatient Medications Acetaminophen (Acetaminophen 500 Mg Tab) 1,000 mg PO Q8H PRN PRN Reason: Pain or Fever Stop: 08/09/25 18:40 Last Admin: 07/11/25 03:51 Dose: 1,000 mg Aspirin (Aspirin 81 Mg Ectab) 81 mg PO QAM MELANIA Stop: 08/10/25 08:59 Last Admin: 07/11/25 08:02 Dose: 81 mg Betamethasone Valerate (Betamethasone Rosalina 0.1% Cr 15 Gm) 1 appln EXT BID MELANIA Stop: 08/09/25 20:59 Last Admin: 07/11/25 08:01 Dose: 1 appln Buspirone HCl (Buspirone 5 Mg Tab) 10 mg PO TID MELANIA Stop: 08/09/25 21:33 Last Admin: 07/11/25 14:05 Dose: 10 mg Cetirizine HCl (Cetirizine Hcl 10 Mg Tablet) 10 mg PO QAM MELANIA Stop: 08/10/25 08:59 Last Admin: 07/11/25 08:01 Dose: 10 mg Cyanocobalamin (Cyanocobalamin (B-12) 500 Mcg Tablet) 1,000 mcg PO QAM MELANIA Stop: 08/10/25 08:59 Last Admin: 07/11/25 08:02 Dose: 1,000 mcg Dextrose (Dextrose 50% 50 Ml Syringe) 25 - 50 ml IV UD PRN; Protocol PRN Reason: Hypoglycemia Protocol Stop: 08/09/25 19:13 Diphenhydramine HCl (Diphenhydramine Capsule 25 Mg Cap) 25 mg PO HS PRN PRN Reason: Sleep Stop: 08/09/25 21:42 Duloxetine HCl (Duloxetine Hcl 60 Mg Cap) 60 mg PO DAILY MELANIA Stop: 08/10/25 08:59 Last Admin: 07/11/25 08:02 Dose: 60 mg Famotidine (Famotidine 10 Mg Tablet) 10 mg PO BID MELANIA Stop: 08/09/25 21:33 Last Admin: 07/11/25 08:02 Dose: 10 mg Ferrous Sulfate (Ferrous Sulfate 325 Mg Tab) 325 mg PO QAM MELANIA Stop: 08/10/25 08:59 Last Admin: 07/11/25 08:02 Dose: 325 mg Glucagon (Glucagon For Inj 1 Mg Vial) 1 mg SQ UD PRN; Protocol PRN Reason: Hypoglycemia Protocol Stop: 08/09/25 19:13 Glucose (Glucose 40% Gel 15 Gm Tube) 15 - 30 gm PO UD PRN; Protocol PRN Reason: Hypoglycemia Protocol Stop: 08/09/25 19:13 Glucose (Glucose 10 Tab/Tube) 4 - 8 tab PO UD PRN; Protocol PRN Reason: Hypoglycemia Protocol Stop: 08/09/25 19:13 Cefepime HCl (Maxipime 2000mg) 2,000 mg in 20 mls @ 5 mls/min IV Q8H [facility]; Protocol Stop: 07/18/25 03:59 Last Admin: 07/11/25 12:23 Dose: 5 mls/min Daptomycin 350 mg/ Syringe 7 mls @ 3.5 mls/min IV Q24H MELANIA; Protocol Stop: 07/18/25 17:59 Insulin Aspart (Insulin Aspart Per Unit Charge) 0 units SC ACHS [facility] Stop: 08/09/25 19:14 Last Admin: 07/11/25 12:11 Dose: 3 units Levothyroxine Sodium (Levothyroxine Sodium 100 Mcg Tablet) 100 mcg PO DAILYBB [facility] Stop: 08/10/25 06:29 Last Admin: 07/11/25 06:27 Dose: 100 mcg Melatonin (Melatonin 3 Mg Tab) 3 mg PO HS PRN PRN Reason: Insomnia Stop: 08/09/25 21:33 Metoprolol Tartrate (Metoprolol Tartrate 50 Mg Tab) 50 mg PO BID [facility] Stop: 08/09/25 21:33 Last Admin: 07/11/25 08:02 Dose: 50 mg Miscellaneous (Carbohydrates For Hypoglycemia ) 15 - 30 gm PO UD PRN PRN Reason: Hypoglycemia Protocol Stop: 08/09/25 19:13 Ondansetron HCl (Ondansetron Inj 2 Mg/Ml 2 Ml Vial) 4 mg IV Q6H PRN PRN Reason: Nausea Stop: 08/09/25 21:33 Oxycodone HCl (Oxycodone Hcl Ir 5 Mg Tab (Immediate Release)) 5 mg PO Q8H PRN PRN Reason: Mod-Sev Pain (Scale 4-10) Stop: 07/24/25 18:20 Last Admin: 07/11/25 08:00 Dose: 5 mg Polyethylene Glycol (Polyethylene (Miralax) 17 Gm Pack) 17 gm PO DAILY PRN PRN Reason: Constipation Stop: 08/09/25 21:33 Potassium Chloride (Potassium Chloride 10 Meq Tabcr) 10 meq PO QAM [facility] Stop: 08/10/25 08:59 Last Admin: 07/11/25 08:08 Dose: 10 meq Torsemide (Torsemide 20 Mg Tab) 20 mg PO BID MELANIA Stop: 08/09/25 21:33 Last Admin: 07/11/25 08:02 Dose: 20 mg (1) Diabetic foot ulcer Diabetic foot ulcer location: toe Diabetes mellitus type: type 2 Laterality: left Non-pressure ulcer stage: with necrosis of muscle Qualified Code(s): E11.621 - Type 2 diabetes mellitus with foot ulcer; L97.523 - Non-pressure chronic ulcer of other part of left foot with necrosis of muscle
--- NOTE | 2025-07-11 16:09 | Podiatry Progress Note ---
Date of Service July 11, 2025 Assessment & Plan (1) Peripheral arterial disease: (2) Diabetic foot ulcer: (3) Cellulitis of left lower leg: Plan Ulcer left second toe with associated cellulitis: - X-ray left foot 07/10/2025 with atherosclerosis and calcifications of the p osterior tibial artery noted and swelling of the left second digit. No signs of osteomyelitis on plain film radiograph. - MRI left foot 07/10/2025: Imaging affected by motion artifact. No discrete underlying destructive osseous or joint process. - Wound culture left second toe 07/10/2025: Growing Staph aureus and Enterobacter cloacae complex. sensitivities pending - Blood culture 07/10/2025: No growth 24 hours - Continue weightbearing as tolerated in postop shoe to left foot. Patient encouraged to remove postop shoe while at rest in bed to reduce stress to the digits. - Dressing change left second toe once daily with Aquacel Ag and a dry sterile dressing. Change dressing to the lateral third digit wound on the left foot once daily with Aquacel Ag. Will continue to monitor blistered areas on the 4th and 5th toe however at this time they should just be protected and no need for application of dressing. - Appreciate vascular evaluation and input. Will continue to monitor healing and reach out if there is concern for slow or nonhealing wound. The clinical appearance of the left second toe is shown relatively significant improvement over the past 24 hours with increased granular tissue and decreased erythema and edema. Decreased malodor and minimal drainage. At this point recommend continued antibiotic therapy, offloading and wound care. Will continue to follow patient while she remains in house and recommend close follow-up in the wound care center following discharge. Admission and Anticipated Discharge Date Admission Date: July 10, 2025 Subjective Patient resting comfortably in bedside chair with vascular surgery present in room for consultation and bedside Doppler exam. Patient denies pain in the left foot. Dressing remains intact to the left second toe with no signs of strikethrough. Review of Systems Review of Systems: Denies nausea, vomiting, fever, chills, shortness of breath, chest pain. Denies pain in the left foot. Physical Exam Physical Exam: Const: Appears well developed and well nourished. No signs of acute distress present. CV: Extremities: No cyanosis or edema. Capillary refill time is less than 2 seconds all digits of the bilateral foot. Posterior tibial and dorsalis pedis pulses are none palpable bilateral. Lymph: No palpable or visible regional lymphadenopathy. Skin: No scars, rashes, lesions or ecchymosis. Neuro: Loss of protective sensation bilateral foot Psych: Mood/Affect: Mood is normal. Affect is normal. Cognition: Orientation is intact to person, place and time. Focused lower extremity musculoskeletal exam: Leg: No pain with compression of the calf muscle. Feet: Decreased erythema and edema to the left foot and ankle.Significant improvement to the left plantar digit ulcer since the time of admission and is encouraging. Decrease necrotic tissue to the wound base. Development of some granular tissue to the wound base and no exposed bone or joint at this time. Decreased erythema and edema to the second digit. Long flexor tendon the second digit is pathologically ruptured. Patient does have a superficial breakdown of skin to the lateral aspect of the third toe with no signs of local soft tissue infection. Large bullous formation to the dorsal lateral 4th and 5th toes. These blisters remain intact without signs of local soft tissue infection. Results & Data Results & Data Vital Signs (Past 12 Hours) Vital Signs Temp Pulse Resp BP Pulse Ox O2 Del Method 07/11/25 08:00 Room Air 07/11/25 07:51 37.5 C 85 16 112/56 L 93 Room Air Diagnostic Findings MRI left foot 07/10/2025: Impression: Limited evaluation secondary to patient motion with forefoot soft tissue swelling most marked at the level of the second digit. No discrete underlying destructive osseous or joint process. Recommend plain film or CT correlation. Please see above for details. Electronically signed by Jim Moreland 07-10-2025 8:04 PM X-ray left foot 07/10/2025:IMPRESSION: No osteomyelitis seen. Lower extremity arterial ultrasound with ABIs: 07/11/2025 1. Multiple calcified mural plaques are noted in the arteries of both lower extremities. 2. Focal increased velocity of the left common iliac artery, measuring up to 443 cm/s. 3. Generalized increased peak systolic velocity is present throughout the bilateral lower extremity arteries. 4. Increased systolic velocities of the arteries of both lower extremities could be due to stenosis. 5. Unable to obtain VIVIANE/TBI due to restless legs and uncontrollable foot movement throughout the examination. 6. Clinical correlation and CT angiography of both lower extremities may be advised. Electronically signed by Angel Morris 07-11-2025 07:08 AM Coding Level of Care Code 56543 SUB INP/OBS CARE MIN Diagnoses Peripheral arterial disease I73.9 Diabetic ulcer of toe of left foot associated with type 2 diabetes mellitus, with necrosis of muscle E11.621; L97.523 Diabetic foot ulcer location: toe Diabetes mellitus type: type 2 Laterality: left Non-pressure ulcer stage: with necrosis of muscle Cellulitis of left lower leg L03.116 (2) Diabetic foot ulcer Diabetic foot ulcer location: toe Diabetes mellitus type: type 2 Laterality: left Non-pressure ulcer stage: with necrosis of muscle Qualified Code(s): E11.621 - Type 2 diabetes mellitus with foot ulcer; L97.523 - Non-pressure chronic ulcer of other part of left foot with necrosis of muscle
[2025-07-11] MEDS: DAPTOmycin 350 MG in SYRINGE 0 ML IV SCH (17:23)
[2025-07-12 07:33] LABS: Hematocrit (blood only) 30.9 % (37.0-47.0); Hemoglobin 10.0 g/dl (12.0-16.0); Immature Granulocytes # (auto) 0.05 K/uL (0.01-0.20); Immature Granulocytes % (auto) 0.6 %; Mean Corpuscular Hemoglobin 30.5 pg (25.0-34.0); Mean Corpuscular Volume 94.2 fL (80.0-100.0); Platelet Count 270 K/uL (130-400); RDW Standard Deviation 45.5 fL (36.4-46.3); Red Blood Count 3.28 M/uL (4.20-5.40); White Blood Count 8.88 K/ul (4.8-10.8)
[2025-07-12 07:57] LABS: Anion Gap 8.0 (3-11); Blood Urea Nitrogen 15.0 mg/dl (6-23); Calcium 8.6 mg/dl (8.6-10.3); Carbon Dioxide 28.0 mmol/L (21-32); Chloride 102.0 mmol/L (98-107); Creatinine Clr Calc Pharmacy 80.0 ml/min; Glucose 127.0 mg/dl (70-99(Fasting)); Magnesium 1.7 mg/dl (1.7-2.4); Potassium 3.4 mmol/L (3.5-5.1); Sodium 138.0 mmol/L (136-145)
[2025-07-12] MEDS: POLYETHYLENE (MIRALAX) 17 GM PACK PO PRN (08:25)
--- NOTE | 2025-07-12 09:44 | Vascular Surgery Progress Note ---
Date of Service July 12, 2025 Assessment & Plan (1) Diabetic foot ulcer: Plan: necrotic ulcer to left 2nd toe, plantar aspect, down to tendon, with associated cellulitis Currently no need for amputation, just local wound care, close follow up in wound clinic and antibiotics Reviewed arterial duplex-she does have multi-level arterial disease in the left leg, and given significantly elevated velocity in left iliac, would need CTA with runoff before any vascular intervention. Her Cr and GFR is acceptable for imaging with contrast at this time. May be beneficial to have CTA done in house as her metformin is being held at this time, although any intervention could be done as outpatient if needed, as limb is not threatened. (2) Peripheral arterial disease: Plan: diagnostic studies reviewed. VIVIANE/TBI unable to be obtained due to patient's restlessness, however duplex showed multilevel arterial disease, especially on the left, although flow is noted in foot on duplex and on exam with doppler this afternoon. Discussed with Dr. Combs-no amputation needed at this time. Local wound care/debridement will be done and IV antibiotics continued. Can consider CTA with runoff to evaluate further if wound is slow to heal, for planning for potential vascular intervention. Cr and GFR currently acceptable for contrast, and she is not currently on Metformin, which would make getting CTA in house easier. Discussed with primary team, will order CTA while in house. Admission and Anticipated Discharge Date Admission Date: July 10, 2025 Subjective patient doing well this morning with no complaints. Just finished eating breakfast. Denies any pain in her left foot and thinks it looks better today. Denies fevers or chills. Remains on IV antibiotics for wound culture + staph aureus and enterobacter cloacae complex. Afebrile overnight and vitals stable. Cr 0.6, eGFR 95. Physical Exam Constitutional: WDWN, sitting up in chair, pleasant and talkative Cardiovascular: +2 right femoral pulse, +1 left femoral pulse Difficult to palpate DP and PT. DP signal on right is biphasic, PT signal on right is biphasic. DP signal on left is biphasic down to the great toe. PT signal on left is biphasic. Musculoskeletal: + erythema, warmth and edema in toes, ho wever improved edema and erythema to the top of foot and ankle. Skin: LLE: dry necrotic wound noted to plantar surface of left 2nd toe + erythema and edema noted to toes 2-5, with blistering noted to 4th and 5th digits, all somewhat improved from yesterday. Results & Data Vital Signs (Past 12 Hours) Vital Signs Temp Pulse Resp BP Pulse Ox O2 Del Method 07/12/25 07:45 37.2 C 93 H 16 131/75 95 Room Air 07/11/25 23:02 37.2 C 81 16 128/65 95 Room Air Laboratory Results 07/10/25 18:00 Gram Stain - Final Toe Aerobic and Anaerobic Culture - Preliminary Staphylococcus aureus Enterobacter cloacae complex 07/10/25 15:10 Aerobic Blood Culture - Preliminary Blood No growth in Aerobic bottle after 24 hours. Anaerobic Blood Culture - Preliminary No growth in Anaerobic bottle after 24 hours. 07/10/25 15:15 Aerobic Blood Culture - Preliminary Blood No growth in Aerobic bottle after 24 hours. Anaerobic Blood Culture - Preliminary No growth in Anaerobic bottle after 24 hours. 07/12/25 07/12/25 07/11/25 07:28 07:08 20:25 WBC 8.88 RBC 3.28 L Hgb 10.0 L Hct 30.9 L MCV 94.2 MCH 30.5 MCHC 32.4 RDW Std Deviation 45.5 RDW Coeff of Yohana 13.2 Plt Count 270 MPV 8.7 L Immature Gran % (Auto) 0.6 Neut % (Auto) 69.2 Lymph % (Auto) 14.3 Webster % (Auto) 13.3 Eos % (Auto) 1.9 Baso % (Auto) 0.7 Neut # (Auto) 6.15 Lymph # (Auto) 1.27 Webster # (Auto) 1.18 H Eos # (Auto) 0.17 Baso # (Auto) 0.06 Immature Gran # (Auto) 0.05 Sodium 138 Potassium 3.4 L Chloride 102 Carbon Dioxide 28 Anion Gap 8 BUN 15 Creatinine 0.59 L Est Cr Clr Drug Dosing 80.0 eGFR 95.70 BUN/Creatinine Ratio 25.4 H Glucose 127 H POC Glucose 122 H 124 H Calcium 8.6 Phosphorus 3.0 Magnesium 1.7 07/11/25 07/11/25 16:17 11:13 WBC RBC Hgb Hct MCV MCH MCHC RDW Std Deviation RDW Coeff of Yohana Plt Count MPV Immature Gran % (Auto) Neut % (Auto) Lymph % (Auto) Webster % (Auto) Eos % (Auto) Baso % (Auto) Neut # (Auto) Lymph # (Auto) Webster # (Auto) Eos # (Auto) Baso # (Auto) Immature Gran # (Auto) Sodium Potassium Chloride Carbon Dioxide Anion Gap BUN Creatinine Est Cr Clr Drug Dosing eGFR BUN/Creatinine Ratio Glucose POC Glucose 113 H 139 H Calcium Phosphorus Magnesium Medications Administered Home Medications Medication Instructions Recorded Confirmed Last Taken aspirin 81 mg tablet,delayed 81 mg PO QAM 03/28/21 07/10/25 03/28/21 release atorvastatin 20 mg tablet 20 mg PO HS 03/28/21 07/10/25 03/28/21 buspirone 10 mg tablet 10 mg PO TID 03/28/21 07/10/25 03/27/21 cyanocobalamin (vitamin B-12) 1,000 mcg PO QAM 03/28/21 07/10/25 03/28/21 1,000 mcg tablet (Vitamin B-12) diphenhydramine 25 1 tab PO HS PRN Sleep 03/28/21 07/10/25 03/27/21 mg-acetaminophen 500 mg tablet 2 tabs (Tylenol PM Extra Strength) famotidine 10 mg tablet (Acid 10 mg PO BID 03/28/21 07/10/25 03/28/21 Recovery Assistant (famotidine)) ferrous sulfate 325 mg (65 mg 325 mg PO QAM 03/28/21 07/10/25 03/28/21 iron) tablet (iron) levothyroxine 100 mcg tablet 100 mcg PO DAILYBB 03/28/21 07/10/25 03/28/21 metformin 500 mg tablet 500 mg PO BIDM 03/28/21 07/10/25 03/28/21 metoprolol tartrate 50 mg tablet 50 mg PO BID 03/28/21 07/10/25 03/28/21 potassium chloride 10 mEq 10 meq PO QAM 03/28/21 07/10/25 03/28/21 tablet,extended release(part/cryst) spironolactone 25 mg tablet 12.5 mg PO QAM 03/28/21 07/10/25 03/28/21 torsemide 20 mg tablet 20 mg PO BID 03/28/21 07/10/25 03/28/21 1 tab duloxetine 60 mg capsule,delayed 60 mg PO DAILY 07/10/25 07/10/25 Unknown release Active Medications Generic Name Dose Route Start Last Admin Trade Name Fritz PRN Reason Stop Dose Admin Acetaminophen 1,000 mg 07/10/25 18:41 07/11/25 03:51 Acetaminophen 500 Mg Tab PO 08/09/25 18:40 1,000 mg Q8H PRN Administration Pain or Fever Aspirin 81 mg 07/11/25 09:00 07/12/25 08:27 Aspirin 81 Mg Ectab PO 08/10/25 08:59 81 mg QAM MELANIA Administration Betamethasone Valerate 1 appln 07/10/25 21:00 07/12/25 08:16 Betamethasone Rosalina 0.1% Cr 15 Gm EXT 08/09/25 20:59 1 appln BID MELNAIA Administration Buspirone HCl 10 mg 07/10/25 21:34 07/12/25 08:26 Buspirone 5 Mg Tab PO 08/09/25 21:33 10 mg TID MELANIA Administration Cetirizine HCl 10 mg 07/11/25 09:00 07/12/25 08:27 Cetirizine Hcl 10 Mg Tablet PO 08/10/25 08:59 10 mg QAM MELANIA Administration Cyanocobalamin 1,000 mcg 07/11/25 09:00 07/12/25 08:26 Cyanocobalamin (B-12) 500 Mcg Tablet PO 08/10/25 08:59 1,000 mcg QAM MELANIA Administration Duloxetine HCl 60 mg 07/11/25 09:00 07/12/25 08:26 Duloxetine Hcl 60 Mg Cap PO 08/10/25 08:59 60 mg DAILY MELANIA Administration Famotidine 10 mg 07/10/25 21:34 07/12/25 08:26 Famotidine 10 Mg Tablet PO 08/09/25 21:33 10 mg BID MELANIA Administration Ferrous Sulfate 325 mg 07/11/25 09:00 07/12/25 08:27 Ferrous Sulfate 325 Mg Tab PO 08/10/25 08:59 325 mg QAM MELANIA Administration Cefepime HCl 2,000 mg in 20 mls @ 5 mls/min 07/11/25 04:00 07/12/25 04:31 Maxipime 2000mg IV 07/18/25 03:59 5 mls/min Q8H MELANIA Administration Protocol Daptomycin 350 mg/ Syringe 7 mls @ 3.5 mls/min 07/11/25 18:00 07/11/25 17:23 IV 07/18/25 17:59 3.5 mls/min Q24H MELANIA Administration Protocol Insulin Aspart 0 units 07/10/25 19:15 07/12/25 08:24 Insulin Aspart Per Unit Charge SC 08/09/25 19:14 5 units ACHS MELANIA Administration Levothyroxine Sodium 100 mcg 07/11/25 06:30 07/12/25 06:04 Levothyroxine Sodium 100 Mcg Tablet PO 08/10/25 06:29 100 mcg DAILYBB MELANIA Administration Metoprolol Tartrate 50 mg 07/10/25 21:34 07/12/25 08:27 Metoprolol Tartrate 50 Mg Tab PO 08/09/25 21:33 50 mg BID MELANIA Administration Oxycodone HCl 5 mg 07/10/25 18:21 07/12/25 08:26 Oxycodone Hcl Ir 5 Mg Tab (Immediate Release) PO 07/24/25 18:20 5 mg Q8H PRN Administration Mod-Sev Pain (Scale 4-10) Polyethylene Glycol 17 gm 07/10/25 21:34 07/12/25 08:25 Polyethylene (Miralax) 17 Gm Pack PO 08/09/25 21:33 17 gm DAILY PRN Administration Constipation Potassium Chloride 10 meq 07/11/25 09:00 07/12/25 08:25 Potassium Chloride 10 Meq Tabcr PO 08/10/25 08:59 10 meq QAM MELANIA Administration Torsemide 20 mg 07/10/25 21:34 07/12/25 08:27 Torsemide 20 Mg Tab PO 08/09/25 21:33 20 mg BID MELANIA Administration PG Care Time/CCT Total # of Minutes Spent Total Time Spent with Patient: Total time spent is greater than 50% in coordination of care (as documented) at patient's floor/unit and/or counseling patient: (1) Diabetic foot ulcer Diabetic foot ulcer location: toe Diabetes mellitus type: type 2 Laterality: left Non-pressure ulcer stage: with necrosis of muscle Qualified Code(s): E11.621 - Type 2 diabetes mellitus with foot ulcer; L97.523 - Non-pressure chronic ulcer of other part of left foot with necrosis of muscle
[2025-07-12] MEDS: OPTIRAY 320 125ml IV ONE (10:27)
--- NOTE | 2025-07-12 14:01 | Podiatry Progress Note ---
Date of Service July 12, 2025 Assessment & Plan (1) Peripheral arterial disease: (2) Diabetic foot ulcer: (3) Cellulitis of left lower leg: Plan Ulcer left second toe with associated cellulitis: - CTA aorta with runoff 07/12/2025 - X-ray left foot 07/10/2025 with atherosclerosis and calcifications of the posterior tibial artery noted and swelling of the left second digit. No signs of osteomyelitis on plain film radiograph. - MRI left foot 07/10/2025: Imaging affected by motion artifact. No discrete underlying destructive osseous or joint process. - Wound culture left second toe 07/10/2025: Growing Staph aureus and Enterobacter cloacae complex. sensitivities pending - Blood culture 07/10/2025: Preliminary. No growth 24 hours - Continue weightbearing as tolerated in postop shoe to left foot. Patient encouraged to remove postop shoe while at rest in bed to reduce stress to the digits. - Dressing change left second toe once daily with Aquacel Ag and a dry sterile dressing. Change dressing to the lateral third digit wound on the left foot once daily with Aquacel Ag. Will continue to monitor blistered areas on the 4th and 5th toe however at this time they should just be protected and no need for application of dressing. Patient has persistent erythema and edema to the digits of the left foot with reduced erythema and edema to the foot and ankle. We have again seen continued improvement to the plantar left second toe wound over the past 24 hours with improving granular tissue to the wound bed and decreased size of soft tissue necrosis. Current plan for continued antibiotic therapy, wound care and offloading. We discussed possible need for more aggressive offloading however the current use of the postop shoe appears to be adequate and manageable for the patient at this time. Will continue to follow patient while she remains in house and recommend close follow-up in the wound care center following discharge. Admission and Anticipated Discharge Date Admission Date: July 10, 2025 Subjective Patient resting comfortably in bedside chair status post angiogram this morning. Denies pain in the left foot. Postop shoe in place. Review of Systems Review of Systems: Denies nausea, vomiting, fever, chills. Physical Exam Physical Exam: Const: Appears well developed and well nourished. No signs of acute distress present. CV: Extremities: No cyanosis or edema. Capillary refill time is less than 2 seconds all digits of the bilateral foot. Posterior tibial and dorsalis pedis pulses are none palpable bilateral. Lymph: No palpable or visible regional lymphadenopathy. Skin: No scars, rashes, lesions or ecchymosis. Neuro: Loss of protective sensation bilateral foot Psych: Mood/Affect: Mood is normal. Affect is normal. Cognition: Orientation is intact to person, place and time. Focused lower extremity musculoskeletal exam: Leg: No pain with compression of the calf muscle. Feet: Persistent erythema and edema to toes 2 through 5 on the left foot. Decreased erythema and edema to the left foot and ankle.Significant improvement to the left plantar digit ulcer since the time of admission is encouraging. Decrease necrotic tissue to the wound base. Development of some granular tissue to the wound base and no exposed bone or joint at this time. Long flexor tendon the second digit is pathologically ruptured. Superficial breakdown of skin to the lateral aspect of the third toe with no signs of local soft tissue infection. Blisters to the 4th and 5th toe remain intact . Results & Data Results & Data Vital Signs (Past 12 Hours) Vital Signs Temp Pulse Resp BP Pulse Ox O2 Del Method 07/12/25 07:45 37.2 C 93 H 16 131/75 95 Room Air Coding Level of Care Code 53511 SUB INP/OBS CARE 2/35MIN Diagnoses Peripheral arterial disease I73.9 Diabetic ulcer of toe of left foot associated with type 2 diabetes mellitus, with necrosis of muscle E11.621; L97.523 Diabetic foot ulcer location: toe Diabetes mellitus type: type 2 Laterality: left Non-pressure ulcer stage: with necrosis of muscle Cellulitis of left lower leg L03.116 (2) Diabetic foot ulcer Diabetic foot ulcer location: toe Diabetes mellitus type: type 2 Laterality: left Non-pressure ulcer stage: with necrosis of muscle Qualified Code(s): E11.621 - Type 2 diabetes mellitus with foot ulcer; L97.523 - Non-pressure chronic ulcer of other part of left foot with necrosis of muscle
--- NOTE | 2025-07-12 14:46 | Hospitalist Progress Note ---
Date of Service July 12, 2025 Assessment & Plan (1) Diabetic foot ulcer: (2) Hypokalemia: (3) Cellulitis of left lower leg: (4) Chronic diastolic heart failure: (5) DM (diabetes mellitus), type 2: (6) CAD (coronary artery disease): (7) Dyslipidemia: (8) Mood disorder: (9) Hypothyroidism: (10) Ambulatory dysfunction: (11) Hypertension: Plan This is a 74yo F with PMH of Type 2 diabetes, heart failure with preserved EF, hypertension, mild CAD, morbid obesity, anxiety, history of aortic valve replacement, history of TIA, dyslipidemia and other medical problems as below who was sent in by PCP for concern of worsening diabetic wound. Left foot diabetic ulcer Left lower extremity cellulitis Sent in by PCP for progressing wound of 2-4th L toes, primarily 2nd ESR 74, CRP 0.90 Foot XR without osteomyelitis seen ED discussed with Dr. Combs, who evaluated patient and added on Foot MRI - pending Continue broad abx coverage with Cefepime and Dapto Wound culture is growing Staphylococcus aureus and Enterobacter cloacae complexsensitivities are pending Scheduled tylenol, oxycodone for breakthrough pain NPO @ midnight for possible debridement tomorrow Patient denies any pain and no other significant symptoms Appreciate vascular surgery evaluation She underwent aorta with runoff CTAthe results are pending She otherwise free from any symptoms -continue intravenous cefepime. Diffuse rash,? Atopic dermatitis Diffuse BUE and BLE rash noted on exam, has been mentioned on previous outpatient notes as well Patient has been using calamine lotion at home Added Zyrtec, steroid cream BID, continue famotidine Only new meds were duloxetine started in April 2025, also completed a 10d Keflex course in April Monitor -rash seems to have improved Hypokalemia Initial K 3.3 - replaced, monitor Potassium replaced orally 40+10 mEq and magnesium replaced intravenously 2 g Will monitor electrolytes Potassium will be replaced at the II minimally low at 3.4 today HFpEF Appears euvolemic. Continue home torsemide, spironolactone, Lopressor No signs and/or symptoms of fluid overload DM II Hold home agents SSI while in-patient BSG AC HS A1c added for AM --5.3 CAD Dyslipidemia Continue aspirin, hold statin while on dapto Mood disorder Continue home buspirone 10mg TID, duloxetine 60nf daily Ambulatory dysfunction Ambulates with a walker at home, more difficult with R foot wound PT/Ot evals, fall precautions DVT Ppx: SCDs for now Code status: FULL PCP: Jesus Dispo: Admitted to med/surg Admission and Anticipated Discharge Date Admission Date: July 10, 2025 Subjective The patient was seen and examined in medical floor She does not have any complaints and awaiting possible surgery tomorrow for left foot Denies any fever and/or chills No neck pain or foot pain no other significant symptoms 07/12/2025 The patient was seen and examined in medical floor She has been feeling much better and has had aorta with runoff CTA Denies any significant symptoms Review of Systems Review of Systems: All systems reviewed and unremarkable except as noted below Physical Exam Physical Exam: Sitting in a chair without any acute distress Constitutional: well developed and well nourished; not ill appearing Eyes: PERRL, conjunctivae normal, anicteric sclerae ENMT: external ear and nose normal, oropharynx normal Neck: trachea midline, no thyromegaly Respiratory: no respiratory distress Auscultation: lungs clear to auscultation bilaterally Cardiovascular: Rate/Rhythm: regular rate and regular rhythm; not tachycardic Heart Sounds: normal S1 and normal S2; no murmur Extremities: no edema Gastrointestinal (Abdomen): Inspection/Auscultation: normal bowel sounds; abdomen not distended Percussion/Palpation: abdomen soft; abdomen nontender Musculoskeletal: No acute arthritis involving any joint Neurologic: normal touch/pain/proprioception and moves all extremities; no focal motor deficits Lymphatic: no cervical or axillary lymphadenopathy Results & Data Results & Data Vital Signs (Past 12 Hours) Vital Signs Temp Pulse Resp BP Pulse Ox O2 Del Method 07/12/25 07:45 37.2 C 93 H 16 131/75 95 Room Air Laboratory Results Short CBC 07/12/25 Range/Units 07:08 WBC 8.88 (4.8-10.8) K/ul Hgb 10.0 L (12.0-16.0) g/dl Hct 30.9 L (37.0-47.0) % Plt Count 270 (130-400) K/uL BMP 07/12/25 07:08 Sodium 138 Potassium 3.4 L Chloride 102 Carbon Dioxide 28 BUN 15 Creatinine 0.59 L Glucose 127 H Calcium 8.6 Medications Administered Current Inpatient Medications Acetaminophen (Acetaminophen 500 Mg Tab) 1,000 mg PO Q8H PRN PRN Reason: Pain or Fever Stop: 08/09/25 18:40 Last Admin: 07/11/25 03:51 Dose: 1,000 mg Aspirin (Aspirin 81 Mg Ectab) 81 mg PO QAM [facility] Stop: 08/10/25 08:59 Last Admin: 07/12/25 08:27 Dose: 81 mg Betamethasone Valerate (Betamethasone Rosalina 0.1% Cr 15 Gm) 1 appln EXT BID [facility] Stop: 08/09/25 20:59 Last Admin: 07/12/25 08:16 Dose: 1 appln Buspirone HCl (Buspirone 5 Mg Tab) 10 mg PO TID [facility] Stop: 08/09/25 21:33 Last Admin: 07/12/25 13:40 Dose: 10 mg Cetirizine HCl (Cetirizine Hcl 10 Mg Tablet) 10 mg PO QAM [facility] Stop: 08/10/25 08:59 Last Admin: 07/12/25 08:27 Dose: 10 mg Cyanocobalamin (Cyanocobalamin (B-12) 500 Mcg Tablet) 1,000 mcg PO QAM [facility] Stop: 08/10/25 08:59 Last Admin: 07/12/25 08:26 Dose: 1,000 mcg Dextrose (Dextrose 50% 50 Ml Syringe) 25 - 50 ml IV UD PRN; Protocol PRN Reason: Hypoglycemia Protocol Stop: 08/09/25 19:13 Diphenhydramine HCl (Diphenhydramine Capsule 25 Mg Cap) 25 mg PO HS PRN PRN Reason: Sleep Stop: 08/09/25 21:42 Duloxetine HCl (Duloxetine Hcl 60 Mg Cap) 60 mg PO DAILY [facility] Stop: 08/10/25 08:59 Last Admin: 07/12/25 08:26 Dose: 60 mg Famotidine (Famotidine 10 Mg Tablet) 10 mg PO BID [facility] Stop: 08/09/25 21:33 Last Admin: 07/12/25 08:26 Dose: 10 mg Ferrous Sulfate (Ferrous Sulfate 325 Mg Tab) 325 mg PO QAM [facility] Stop: 08/10/25 08:59 Last Admin: 07/12/25 08:27 Dose: 325 mg Glucagon (Glucagon For Inj 1 Mg Vial) 1 mg SQ UD PRN; Protocol PRN Reason: Hypoglycemia Protocol Stop: 08/09/25 19:13 Glucose (Glucose 40% Gel 15 Gm Tube) 15 - 30 gm PO UD PRN; Protocol PRN Reason: Hypoglycemia Protocol Stop: 08/09/25 19:13 Glucose (Glucose 10 Tab/Tube) 4 - 8 tab PO UD PRN; Protocol PRN Reason: Hypoglycemia Protocol Stop: 08/09/25 19:13 Cefepime HCl (Maxipime 2000mg) 2,000 mg in 20 mls @ 5 mls/min IV Q8H [facility]; Protocol Stop: 07/18/25 03:59 Last Admin: 07/12/25 12:24 Dose: 5 mls/min Daptomycin 350 mg/ Syringe 7 mls @ 3.5 mls/min IV Q24H [facility]; Protocol Stop: 07/18/25 17:59 Last Admin: 07/11/25 17:23 Dose: 3.5 mls/min Insulin Aspart (Insulin Aspart Per Unit Charge) 0 units SC ACHS [facility] Stop: 08/09/25 19:14 Last Admin: 07/12/25 12:24 Dose: 4 units Levothyroxine Sodium (Levothyroxine Sodium 100 Mcg Tablet) 100 mcg PO DAILYBB [facility] Stop: 08/10/25 06:29 Last Admin: 07/12/25 06:04 Dose: 100 mcg Melatonin (Melatonin 3 Mg Tab) 3 mg PO HS PRN PRN Reason: Insomnia Stop: 08/09/25 21:33 Metoprolol Tartrate (Metoprolol Tartrate 50 Mg Tab) 50 mg PO BID [facility] Stop: 08/09/25 21:33 Last Admin: 07/12/25 08:27 Dose: 50 mg Miscellaneous (Carbohydrates For Hypoglycemia ) 15 - 30 gm PO UD PRN PRN Reason: Hypoglycemia Protocol Stop: 08/09/25 19:13 Ondansetron HCl (Ondansetron Inj 2 Mg/Ml 2 Ml Vial) 4 mg IV Q6H PRN PRN Reason: Nausea Stop: 08/09/25 21:33 Oxycodone HCl (Oxycodone Hcl Ir 5 Mg Tab (Immediate Release)) 5 mg PO Q8H PRN PRN Reason: Mod-Sev Pain (Scale 4-10) Stop: 07/24/25 18:20 Last Admin: 07/12/25 08:26 Dose: 5 mg Polyethylene Glycol (Polyethylene (Miralax) 17 Gm Pack) 17 gm PO DAILY PRN PRN Reason: Constipation Stop: 08/09/25 21:33 Last Admin: 07/12/25 08:25 Dose: 17 gm Potassium Chloride (Potassium Chloride 10 Meq Tabcr) 10 meq PO QAM [facility] Stop: 08/10/25 08:59 Last Admin: 07/12/25 08:25 Dose: 10 meq Torsemide (Torsemide 20 Mg Tab) 20 mg PO BID [facility] Stop: 08/09/25 21:33 Last Admin: 07/12/25 08:27 Dose: 20 mg 25 3.4 (1) Diabetic foot ulcer Diabetic foot ulcer location: toe Diabetes mellitus type: type 2 Laterality: left Non-pressure ulcer stage: with necrosis of muscle Qualified Code(s): E11.621 - Type 2 diabetes mellitus with foot ulcer; L97.523 - Non-pressure chronic ulcer of other part of left foot with necrosis of muscle
[2025-07-12] MEDS: POTASSIUM CHLORIDE CRTAB 20 MEQ TABCR PO STA (15:25)
--- NOTE | 2025-07-12 15:57 | CT Scan Report ---
CT ANGIOGRAM OF THE ABDOMEN AND PELVIS WITH BILATERAL LOWER EXTREMITY RUNOFF CLINICAL HISTORY: Left foot wound. Peripheral arterial disease. COMPARISON STUDY: Bilateral lower extremity arterial ultrasound dated 07/11/2025. TECHNIQUE: Following the IV administration of 120 cc of Optiray 320, CT angiogram of the abdomen and pelvis with bilateral lower externally runoff was performed from the lung bases to the feet. Images a re reviewed in the axial, sagittal, and coronal planes. 3-D MIPS images are created and assessed. IV contrast was administered without complication. A dose lowering technique was utilized adhering to t he principles of ALARA. The examination is degraded by motion artifact. CT DOSE: 1760.81 mGy.cm FINDINGS: Lower chest: The patient is status post midline sternotomy and aortic valve surgery. The heart is enl arged and without pericardial effusion. The coronary arteries and mitral annulus are densely calcifie d. There is bibasilar scarring/atelectasis. No airspace consolidation or pleural effusion is identifi ed. A small hiatal hernia is noted. Liver: The contrast-enhanced liver is normal in size, contour, and attenuation. There is no intrahepa tic biliary ductal dilatation. The main portal veins appear patent. Gallbladder: There are numerous calcified gallstones without CT evidence of acute cholecystitis. Spleen: Normal in size and attenuation noting heterogeneous arterial phase enhancement. Pancreas: Moderately atrophic and grossly unremarkable. Adrenal glands: There is mild thickening of the adrenal glands. Kidneys: The contrast since kidneys are normal in size and without hydronephrosis. The kidneys enhanc e symmetrically. Abdominal aorta and iliac arteries: The abdominal aorta is normal in course and caliber noting modera te atherosclerotic calcification. The abdominal aorta is widely patent. No dissection is seen. The il iac arteries are widely patent bilaterally noting mild atherosclerotic plaque and irregularity. Major branches of the abdominal aorta: The celiac trunk, superior mesenteric, and inferior mesenteric arteries are patent. Hepatic arterial anatomy is conventional. The splenic artery is patent. There a re single bilateral renal arteries. Mild to moderate stenosis is seen at the origin of the left renal artery. No renal artery stenosis seen on the right. Right lower extremity runoff: The right common femoral artery is widely patent, as is the right profu nda femoris artery. The right superficial femoral artery is widely patent, as is the right popliteal artery. There is 3-vessel runoff to the foot. The calf arteries are diminutive but patent. Flow was s hown in the dorsalis pedis artery. Left lower extremity runoff: The left common femoral artery is widely patent, as is the left profunda femoris artery. The left superficial femoral artery is widely patent, as is the left popliteal arter y. There is 3-vessel runoff to the foot. Flow was shown in the dorsalis pedis artery. Bowel: There is moderate colonic fecal retention. No bowel obstruction is seen. The appendix is well -visualized and normal. Peritoneum: There is no intraperitoneal free air or abdominal ascites. Lymphadenopathy: None. Pelvic viscera: The bladder, uterus, and adnexa are normal as visualized. Skeletal structures: The skeletal structures are osteopenic. No lytic or blastic bony lesions are see n. There is moderate to advanced lumbosacral spondylosis. Severe arthritic changes noted in the right hip. Arthritic change is also seen in the knees, ankles, and feet. A large osteochondral defect is s uggested in the right talar dome. Sclerotic change is noted in the sacroiliac joints. Lower extremity soft tissues: There is asymmetric atrophy of the right lower extremity soft tissues i s compared to the left. Asymmetric soft tissue edema is present in the left foot and ankle. Muscular atrophy is seen in both legs, asymmetrically greater involving the hamstrings musculature and the med ial gastrocnemius musculature. There is asymmetric quadriceps muscular atrophy of the right leg as co mpared to the left. IMPRESSION: 1. Unremarkable CT angiogram of the abdominal aorta and iliac arteries. 2. Normal bilateral lower extremity runoff. There is 3-vessel runoff to both feet. No significant foc i of stenosis are identified in either leg. 3. Mild/moderate stenosis is seen at the origin of the left renal artery. 4. Otherwise unremarkable CT angiogram of the major branches of the abdominal aorta. 5. Cardiomegaly. 6. Cholelithiasis. 7. There is asymmetric soft tissue edema in the left foot and calf as compared to the right. 8. There is asymmetric atrophy of the right lower extremity soft tissues as compared to the left. 9. Additional findings as detailed above. ACT 112: Negative or not required by law. Electronically signed by: Rosendo Bradshaw M.D. 07/12/2025 3:55 PM
[2025-07-13 07:25] LABS: Hematocrit (blood only) 32.7 % (37.0-47.0); Hemoglobin 11.1 g/dl (12.0-16.0); Immature Granulocytes # (auto) 0.02 K/uL (0.01-0.20); Immature Granulocytes % (auto) 0.2 %; Mean Corpuscular Hemoglobin 31.8 pg (25.0-34.0); Mean Corpuscular Volume 93.7 fL (80.0-100.0); Platelet Count 294 K/uL (130-400); RDW Standard Deviation 45.2 fL (36.4-46.3); Red Blood Count 3.49 M/uL (4.20-5.40); White Blood Count 8.50 K/ul (4.8-10.8)
[2025-07-13 07:45] LABS: Anion Gap 8.0 (3-11); Blood Urea Nitrogen 19.0 mg/dl (6-23); Calcium 9.1 mg/dl (8.6-10.3); Carbon Dioxide 29.0 mmol/L (21-32); Chloride 100.0 mmol/L (98-107); Creatinine Clr Calc Pharmacy 68.4 ml/min; Glucose 131.0 mg/dl (70-99(Fasting)); Potassium 3.7 mmol/L (3.5-5.1); Sodium 137.0 mmol/L (136-145)
--- NOTE | 2025-07-13 10:14 | Vascular Surgery Progress Note ---
Date of Service July 13, 2025 Assessment & Plan (1) Diabetic foot ulcer: Plan: necrotic ulcer to left 2nd toe, plantar aspect, down to tendon, with associated cellulitis, improving with antibiotics and wound care arterial duplex and CTA reviewed. appeared to have multilevel disease on duplex that would potentially need to be addressed, however CTA less remarkable for significant stenoses No plan for intervention while in house, limb is not threatened. If wound healing stalls or worsens, will need angio and possible intervention. (2) Peripheral arterial disease: Plan: arterial duplex, CTA reviewed Continue aspirin and atorvastatin Admission and Anticipated Discharge Date Admission Date: July 10, 2025 Subjective No complaints other than not feeling hungry this morning. Denies any pain in her feet, denies fevers, chills Physical Exam Constitutional: WDWN, lying in bed Cardiovascular: +2 right femoral pulse, +1 left femoral pulse Difficult to palpate DP and PT. DP signal on right is biphasic, PT signal on right is biphasic. DP signal on left is biphasic down to the great toe. PT signal on left is biphasic. Musculoskeletal: erythema limited to toes and is greatly improved. Edema improved. 2nd toe wound dry, no drainage on dressing, no malodor. + blisters to 4th and 5th digits, intact and appear smaller. No tenderness to the right foot. Skin: see above. Results & Data Vital Signs (Past 12 Hours) Vital Signs Temp Pulse Resp BP Pulse Ox O2 Del Method 07/13/25 08:02 37.6 C H 89 16 141/75 H 98 Room Air 07/12/25 22:28 36.7 C 102 H 14 150/75 H 93 Room Air Laboratory Results 07/10/25 18:00 Gram Stain - Final Toe Aerobic and Anaerobic Culture - Preliminary Staphylococcus aureus Enterobacter cloacae complex 07/10/25 15:10 Aerobic Blood Culture - Preliminary Blood No growth in Aerobic bottle after 48 hours. Anaerobic Blood Culture - Preliminary No growth in Anaerobic bottle after 48 hours. 07/10/25 15:15 Aerobic Blood Culture - Preliminary Blood No growth in Aerobic bottle after 48 hours. Anaerobic Blood Culture - Preliminary No growth in Anaerobic bottle after 48 hours. 07/13/25 07/13/25 07/12/25 07:36 06:42 20:29 WBC 8.50 RBC 3.49 L Hgb 11.1 L Hct 32.7 L MCV 93.7 MCH 31.8 MCHC 33.9 RDW Std Deviation 45.2 RDW Coeff of Yohana 13.2 Plt Count 294 MPV 9.0 L Immature Gran % (Auto) 0.2 Neut % (Auto) 66.3 Lymph % (Auto) 14.9 Coos % (Auto) 15.3 Eos % (Auto) 2.4 Baso % (Auto) 0.9 Neut # (Auto) 5.63 Lymph # (Auto) 1.27 Coos # (Auto) 1.30 H Eos # (Auto) 0.20 Baso # (Auto) 0.08 Immature Gran # (Auto) 0.02 Sodium 137 Potassium 3.7 Chloride 100 Carbon Dioxide 29 Anion Gap 8 BUN 19 Creatinine 0.69 Est Cr Clr Drug Dosing 68.4 eGFR 92.15 BUN/Creatinine Ratio 27.5 H Glucose 131 H POC Glucose 123 H 104 H Calcium 9.1 07/12/25 07/12/25 16:46 11:21 WBC RBC Hgb Hct MCV MCH MCHC RDW Std Deviation RDW Coeff of Yohana Plt Count MPV Immature Gran % (Auto) Neut % (Auto) Lymph % (Auto) Coos % (Auto) Eos % (Auto) Baso % (Auto) Neut # (Auto) Lymph # (Auto) Coos # (Auto) Eos # (Auto) Baso # (Auto) Immature Gran # (Auto) Sodium Potassium Chloride Carbon Dioxide Anion Gap BUN Creatinine Est Cr Clr Drug Dosing eGFR BUN/Creatinine Ratio Glucose POC Glucose 115 H 173 H Calcium Diagnostic Findings Aorta w/Runoff CTA 07/12/25 09:44 CT ANGIOGRAM OF THE ABDOMEN AND PELVIS WITH BILATERAL LOWER EXTREMITY RUNOFF CLINICAL HISTORY: Left foot wound. Peripheral arterial disease. COMPARISON STUDY: Bilateral lower extremity arterial ultrasound dated 07/11/2025. TECHNIQUE: Following the IV administration of 120 cc of Optiray 320, CT ang iogram of the abdomen and pelvis with bilateral lower externally runoff was performed from the lung bases to the feet. Images are reviewed in the axial, sagittal, and coronal planes. 3-D MIPS images are created and assessed. IV contrast was administered without complication. A dose lowering technique was utilized adhering to the principles of ALARA. The examination is degraded by motion artifact. CT DOSE: 1760.81 mGy.cm FINDINGS: Lower chest: The patient is status post midline sternotomy and aortic valve surgery. The heart is enlarged and without pericardial effusion. The coronary arteries and mitral annulus are densely calcified. There is bibasilar scarring/atelectasis. No airspace consolidation or pleural effusion is identified. A small hiatal hernia is noted. Liver: The contrast-enhanced liver is normal in size, contour, and attenuation. There is no intrahepatic biliary ductal dilatation. The main portal veins appear patent. Gallbladder: There are numerous calcified gallstones without CT evidence of acute cholecystitis. Spleen: Normal in size and attenuation noting heterogeneous arterial phase enhancement. Pancreas: Moderately atrophic and grossly unremarkable. Adrenal glands: There is mild thickening of the adrenal glands. Kidneys: The contrast since kidneys are normal in size and without hydronephrosis. The kidneys enhance symmetrically. Abdominal aorta and iliac arteries: The abdominal aorta is normal in course and caliber noting moderate atherosclerotic calcification. The abdominal aorta is widely patent. No dissection is seen. The iliac arteries are widely patent bilaterally noting mild atherosclerotic plaque and irregularity. Major branches of the abdominal aorta: The celiac trunk, superior mesenteric, and inferior mesenteric arteries are patent. Hepatic arterial anatomy is conventional. The splenic artery is patent. There are single bilateral renal arteries. Mild to moderate stenosis is seen at the origin of the left renal artery. No renal artery stenosis seen on the right. Right lower extremity runoff: The right common femoral artery is widely patent, as is the right profunda femoris artery. The right superficial femoral artery is widely patent, as is the right popliteal artery. There is 3-vessel runoff to the foot. The calf arteries are diminutive but patent. Flow was shown in the dorsalis pedis artery. Left lower extremity runoff: The left common femoral artery is widely patent, as is the left profunda femoris artery. The left superficial femoral artery is widely patent, as is the left popliteal artery. There is 3-vessel runoff to the foot. Flow was shown in the dorsalis pedis artery. Bowel: There is moderate colonic fecal retention. No bowel obstruction is seen. The appendix is well-visualized and normal. Peritoneum: There is no intraperitoneal free air or abdominal ascites. Lymphadenopathy: None. Pelvic viscera: The bladder, uterus, and adnexa are normal as visualized. Skeletal structures: The skeletal structures are osteopenic. No lytic or blastic bony lesions are seen. There is moderate to advanced lumbosacral spondylosis. Severe arthritic changes noted in the right hip. Arthritic change is also seen in the knees, ankles, and feet. A large osteochondral defect is suggested in the right talar dome. Sclerotic change is noted in the sacroiliac joints. Lower extremity soft tissues: There is asymmetric atrophy of the right lower extremity soft tissues is compared to the left. Asymmetric soft tissue edema is present in the left foot and ankle. Muscular atrophy is seen in both legs, a symmetrically greater involving the hamstrings musculature and the medial gastrocnemius musculature. There is asymmetric quadriceps muscular atrophy of the right leg as compared to the left. IMPRESSION: 1. Unremarkable CT angiogram of the abdominal aorta and iliac arteries. 2. Normal bilateral lower extremity runoff. There is 3-vessel runoff to both feet. No significant foci of stenosis are identified in either leg. 3. Mild/moderate stenosis is seen at the origin of the left renal artery. 4. Otherwise unremarkable CT angiogram of the major branches of the abdominal aorta. 5. Cardiomegaly. 6. Cholelithiasis. 7. There is asymmetric soft tissue edema in the left foot and calf as compared to the right. 8. There is asymmetric atrophy of the right lower extremity soft tissues as compared to the left. 9. Additional findings as detailed above. ACT 112: Negative or not required by law. Electronically signed by: Rosendo Bradshaw M.D. 07/12/2025 3:55 PM Medications Administered Home Medications Medication Instructions Recorded Confirmed Last Taken aspirin 81 mg tablet,delayed 81 mg PO QAM 03/28/21 07/10/25 03/28/21 release atorvastatin 20 mg tablet 20 mg PO HS 03/28/21 07/10/25 03/28/21 buspirone 10 mg tablet 10 mg PO TID 03/28/21 07/10/25 03/27/21 cyanocobalamin (vitamin B-12) 1,000 mcg PO QAM 03/28/21 07/10/25 03/28/21 1,000 mcg tablet (Vitamin B-12) diphenhydramine 25 1 tab PO HS PRN Sleep 03/28/21 07/10/25 03/27/21 mg-acetaminophen 500 mg tablet 2 tabs (Tylenol PM Extra Strength) famotidine 10 mg tablet (Acid 10 mg PO BID 03/28/21 07/10/25 03/28/21 Electronic Warfare Technician (famotidine)) ferrous sulfate 325 mg (65 mg 325 mg PO QAM 03/28/21 07/10/25 03/28/21 iron) tablet (iron) levothyroxine 100 mcg tablet 100 mcg PO DAILYBB 03/28/21 07/10/25 03/28/21 metformin 500 mg tablet 500 mg PO BIDM 03/28/21 07/10/25 03/28/21 metoprolol tartrate 50 mg tablet 50 mg PO BID 03/28/21 07/10/25 03/28/21 potassium chloride 10 mEq 10 meq PO QAM 03/28/21 07/10/25 03/28/21 tablet,extended release(part/cryst) spironolactone 25 mg tablet 12.5 mg PO QAM 03/28/21 07/10/25 03/28/21 torsemide 20 mg tablet 20 mg PO BID 03/28/21 07/10/25 03/28/21 1 tab duloxetine 60 mg capsule,delayed 60 mg PO DAILY 07/10/25 07/10/25 Unknown release Active Medications Generic Name Dose Route Start Last Admin Trade Name Fritz PRN Reason Stop Dose Admin Acetaminophen 1,000 mg 07/10/25 18:41 07/11/25 03:51 Acetaminophen 500 Mg Tab PO 08/09/25 18:40 1,000 mg Q8H PRN Administration Pain or Fever Aspirin 81 mg 07/11/25 09:00 07/13/25 09:14 Aspirin 81 Mg Ectab PO 08/10/25 08:59 81 mg QAM MELANIA Administration Betamethasone Valerate 1 appln 07/10/25 21:00 07/13/25 09:14 Betamethasone Rosalina 0.1% Cr 15 Gm EXT 08/09/25 20:59 1 appln BID MELANIA Administration Buspirone HCl 10 mg 07/10/25 21:34 07/13/25 09:14 Buspirone 5 Mg Tab PO 08/09/25 21:33 10 mg TID MELANIA Administration Cetirizine HCl 10 mg 07/11/25 09:00 07/13/25 09:14 Cetirizine Hcl 10 Mg Tablet PO 08/10/25 08:59 10 mg QAM MELANIA Administration Cyanocobalamin 1,000 mcg 07/11/25 09:00 07/13/25 09:14 Cyanocobalamin (B-12) 500 Mcg Tablet PO 08/10/25 08:59 1,000 mcg QAM MELANIA Administration Duloxetine HCl 60 mg 07/11/25 09:00 07/13/25 09:13 Duloxetine Hcl 60 Mg Cap PO 08/10/25 08:59 60 mg DAILY MELANIA Administration Famotidine 10 mg 07/10/25 21:34 07/13/25 09:13 Famotidine 10 Mg Tablet PO 08/09/25 21:33 10 mg BID MELANIA Administration Ferrous Sulfate 325 mg 07/11/25 09:00 07/13/25 09:14 Ferrous Sulfate 325 Mg Tab PO 08/10/25 08:59 325 mg QAM MELANIA Administration Cefepime HCl 2,000 mg in 20 mls @ 5 mls/min 07/11/25 04:00 07/13/25 04:57 Maxipime 2000mg IV 07/18/25 03:59 5 mls/min Q8H MELANIA Administration Protocol Daptomycin 350 mg/ Syringe 7 mls @ 3.5 mls/min 07/11/25 18:00 07/12/25 17:22 IV 07/18/25 17:59 3.5 mls/min Q24H MELANIA Administration Protocol Insulin Aspart 0 units 07/10/25 19:15 07/13/25 09:15 Insulin Aspart Per Unit Charge SC 08/09/25 19:14 Not Given ACHS MELANIA Levothyroxine Sodium 100 mcg 07/11/25 06:30 07/13/25 06:05 Levothyroxine Sodium 100 Mcg Tablet PO 08/10/25 06:29 100 mcg DAILYBB MELANIA Administration Metoprolol Tartrate 50 mg 07/10/25 21:34 07/13/25 09:13 Metoprolol Tartrate 50 Mg Tab PO 08/09/25 21:33 50 mg BID MELANIA Administration Oxycodone HCl 5 mg 07/10/25 18:21 07/12/25 08:26 Oxycodone Hcl Ir 5 Mg Tab (Immediate Release) PO 07/24/25 18:20 5 mg Q8H PRN Administration Mod-Sev Pain (Scale 4-10) Polyethylene Glycol 17 gm 07/10/25 21:34 07/13/25 09:18 Polyethylene (Miralax) 17 Gm Pack PO 08/09/25 21:33 17 gm DAILY PRN Administration Constipation Potassium Chloride 10 meq 07/11/25 09:00 07/13/25 09:18 Potassium Chloride 10 Meq Tabcr PO 08/10/25 08:59 10 meq QAM MELANIA Administration Torsemide 20 mg 07/10/25 21:34 07/13/25 09:14 Torsemide 20 Mg Tab PO 08/09/25 21:33 20 mg BID MELANIA Administration PG Care Time/CCT Total # of Minutes Spent Total Time Spent with Patient: Total time spent is greater than 50% in coordination of care (as documented) at patient's floor/unit and/or counseling patient: (1) Diabetic foot ulcer Diabetes mellitus type: type 2 Diabetic foot ulcer location: toe Laterality: left Non-pressure ulcer stage: with necrosis of muscle Qualified Code(s): E11.621 - Type 2 diabetes mellitus with foot ulcer; L97.523 - Non-pressure chronic ulcer of other part of left foot with necrosis of muscle
--- NOTE | 2025-07-13 13:29 | Hospitalist Progress Note ---
Date of Service July 13, 2025 Assessment & Plan (1) Diabetic foot ulcer: (2) Hypokalemia: (3) Cellulitis of left lower leg: (4) Chronic diastolic heart failure: (5) DM (diabetes mellitus), type 2: (6) CAD (coronary artery disease): (7) Dyslipidemia: (8) Mood disorder: (9) Hypothyroidism: (10) Ambulatory dysfunction: (11) Hypertension: Plan This is a 74yo F with PMH of Type 2 diabetes, heart failure with preserved EF, hypertension, mild CAD, morbid obesity, anxiety, history of aortic valve replacement, history of TIA, dyslipidemia and other medical problems as below who was sent in by PCP for concern of worsening diabetic wound. Left foot diabetic ulcer Left lower extremity cellulitis Sent in by PCP for progressing wound of 2-4th L toes, primarily 2nd ESR 74, CRP 0.90 Foot XR without osteomyelitis seen ED discussed with Dr. Combs, who evaluated patient and added on Foot MRI - pending Continue broad abx coverage with Cefepime and Dapto Wound culture is growing Staphylococcus aureus and Enterobacter cloacae complexsensitivities noted Scheduled tylenol, oxycodone for breakthrough pain NPO @ midnight for possible debridement tomorrow Patient denies any pain and no other significant symptoms Appreciate vascular surgery evaluation She underwent aorta with runoff CTAdid not show any significant blockage in circulation Wound culture is growing staph aureus and Enterobacter cloacae complexcurrently on intravenous cefepime and daptomycin Likely contributing management and no plan for 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 Atopic dermatitis Diffuse BUE and BLE rash noted on exam, has been mentioned on previous outpatient notes as well Patient has been using calamine lotion at home Added Zyrtec, steroid cream BID, continue famotidine Only new meds were duloxetine started in April 2025, also completed a 10d Keflex course in April Monitor -rash seems to have improved Hypokalemia Initial K 3.3 - replaced, monitor Potassium replaced orally 40+10 mEq and magnesium replaced intravenously 2 g Will monitor electrolytes Potassium will be replaced at the II minimally low at 3.4 today HFpEF Appears euvolemic. Continue home torsemide, spironolactone, Lopressor No signs and/or symptoms of fluid overload DM II Hold home agents SSI while in-patient BSG AC HS A1c added for AM --5.3 CAD Dyslipidemia Continue aspirin, hold statin while on dapto Mood disorder Continue home buspirone 10mg TID, duloxetine 60nf daily Ambulatory dysfunction Ambulates with a walker at home, more difficult with R foot wound PT/Ot evals, fall precautions DVT Ppx: SCDs for now Code status: FULL PCP: Jesus Dispo: Admitted to med/surg Admission and Anticipated Discharge Date Admission Date: July 10, 2025 Subjective The patient was seen and examined in medical floor She does not have any complaints and awaiting possible surgery tomorrow for left foot Denies any fever and/or chills No neck pain or foot pain no other significant symptoms 07/12/2025 The patient was seen and examined in medical floor She has been feeling much better and has had aorta with runoff CTA Denies any significant symptoms 07/13/2025 The patient was seen and examined in medical floor She has been stable without any pain in the foot No fever no chills, no abdominal pain nausea no vomiting Review of Systems Review of Systems: All systems reviewed and unremarkable except as noted below Physical Exam Physical Exam: Sitting in a chair without any acute distress Constitutional: well developed and well nourished; not ill appearing Eyes: PERRL, conjunctivae normal, anicteric sclerae ENMT: external ear and nose normal, oropharynx normal Neck: trachea midline, no thyromegaly Respiratory: no respiratory distress Auscultation: lungs clear to auscultation bilaterally Cardiovascular: Rate/Rhythm: regular rate and regular rhythm; not tachycardic Heart Sounds: normal S1 and normal S2; no murmur Extremities: no edema Gastrointestinal (Abdomen): Inspection/Auscultation: normal bowel sounds; abdomen not distended Percussion/Palpation: abdomen soft; abdomen nontender Musculoskeletal: No acute arthritis involving any of the joint Skin: Left footnecrotic ulcer on second toe mostly involving the undersurface and blisters with dusky discoloration and adjoining inflammation involving fourth and medial aspect of fifth toe. Neurologic: normal touch/pain/proprioception and moves all extremities; no focal motor deficits Lymphatic: no cervical or axillary lymphadenopathy Results & Data Results & Data Vital Signs (Past 12 Hours) Vital Signs Temp Pulse Resp BP Pulse Ox O2 Del Method 07/13/25 08:02 37.6 C H 89 16 141/75 H 98 Room Air Laboratory Results Short CBC 07/13/25 Range/Units 06:42 WBC 8.50 (4.8-10.8) K/ul Hgb 11.1 L (12.0-16.0) g/dl Hct 32.7 L (37.0-47.0) % Plt Count 294 (130-400) K/uL BMP 07/13/25 06:42 Sodium 137 Potassium 3.7 Chloride 100 Carbon Dioxide 29 BUN 19 Creatinine 0.69 Glucose 131 H Calcium 9.1 Medications Administered Current Inpatient Medications Acetaminophen (Acetaminophen 500 Mg Tab) 1,000 mg PO Q8H PRN PRN Reason: Pain or Fever Stop: 08/09/25 18:40 Last Admin: 07/13/25 12:14 Dose: 1,000 mg Aspirin (Aspirin 81 Mg Ectab) 81 mg PO QAM MELANIA Stop: 08/10/25 08:59 Last Admin: 07/13/25 09:14 Dose: 81 mg Betamethasone Valerate (Betamethasone Rosalina 0.1% Cr 15 Gm) 1 appln EXT BID MELANIA Stop: 08/09/25 20:59 Last Admin: 07/13/25 09:14 Dose: 1 appln Buspirone HCl (Buspirone 5 Mg Tab) 10 mg PO TID MELANIA Stop: 08/09/25 21:33 Last Admin: 07/13/25 09:14 Dose: 10 mg Cetirizine HCl (Cetirizine Hcl 10 Mg Tablet) 10 mg PO QAM MELANIA Stop: 08/10/25 08:59 Last Admin: 07/13/25 09:14 Dose: 10 mg Cyanocobalamin (Cyanocobalamin (B-12) 500 Mcg Tablet) 1,000 mcg PO QAM MELANIA Stop: 08/10/25 08:59 Last Admin: 07/13/25 09:14 Dose: 1,000 mcg Dextrose (Dextrose 50% 50 Ml Syringe) 25 - 50 ml IV UD PRN; Protocol PRN Reason: Hypoglycemia Protocol Stop: 08/09/25 19:13 Diphenhydramine HCl (Diphenhydramine Capsule 25 Mg Cap) 25 mg PO HS PRN PRN Reason: Sleep Stop: 08/09/25 21:42 Duloxetine HCl (Duloxetine Hcl 60 Mg Cap) 60 mg PO DAILY MELANIA Stop: 08/10/25 08:59 Last Admin: 07/13/25 09:13 Dose: 60 mg Famotidine (Famotidine 10 Mg Tablet) 10 mg PO BID MELANIA Stop: 08/09/25 21:33 Last Admin: 07/13/25 09:13 Dose: 10 mg Ferrous Sulfate (Ferrous Sulfate 325 Mg Tab) 325 mg PO QAM REPLACED BY [facility] Stop: 08/10/25 08:59 Last Admin: 07/13/25 09:14 Dose: 325 mg Glucagon (Glucagon For Inj 1 Mg Vial) 1 mg SQ UD PRN; Protocol PRN Reason: Hypoglycemia Protocol Stop: 08/09/25 19:13 Glucose (Glucose 40% Gel 15 Gm Tube) 15 - 30 gm PO UD PRN; Protocol PRN Reason: Hypoglycemia Protocol Stop: 08/09/25 19:13 Glucose (Glucose 10 Tab/Tube) 4 - 8 tab PO UD PRN; Protocol PRN Reason: Hypoglycemia Protocol Stop: 08/09/25 19:13 Cefepime HCl (Maxipime 2000mg) 2,000 mg in 20 mls @ 5 mls/min IV Q8H REPLACED BY [facility]; Protocol Stop: 07/18/25 03:59 Last Admin: 07/13/25 12:38 Dose: 5 mls/min Daptomycin 350 mg/ Syringe 7 mls @ 3.5 mls/min IV Q24H REPLACED BY [facility]; Protocol Stop: 07/18/25 17:59 Last Admin: 07/12/25 17:22 Dose: 3.5 mls/min Insulin Aspart (Insulin Aspart Per Unit Charge) 0 units SC ACHS REPLACED BY [facility] Stop: 08/09/25 19:14 Last Admin: 07/13/25 12:38 Dose: 6 units Levothyroxine Sodium (Levothyroxine Sodium 100 Mcg Tablet) 100 mcg PO DAILYBB REPLACED BY [facility] Stop: 08/10/25 06:29 Last Admin: 07/13/25 06:05 Dose: 100 mcg Melatonin (Melatonin 3 Mg Tab) 3 mg PO HS PRN PRN Reason: Insomnia Stop: 08/09/25 21:33 Metoprolol Tartrate (Metoprolol Tartrate 50 Mg Tab) 50 mg PO BID MELANIA Stop: 08/09/25 21:33 Last Admin: 07/13/25 09:13 Dose: 50 mg Miscellaneous (Carbohydrates For Hypoglycemia ) 15 - 30 gm PO UD PRN PRN Reason: Hypoglycemia Protocol Stop: 08/09/25 19:13 Ondansetron HCl (Ondansetron Inj 2 Mg/Ml 2 Ml Vial) 4 mg IV Q6H PRN PRN Reason: Nausea Stop: 08/09/25 21:33 Oxycodone HCl (Oxycodone Hcl Ir 5 Mg Tab (Immediate Release)) 5 mg PO Q8H PRN PRN Reason: Mod-Sev Pain (Scale 4-10) Stop: 07/24/25 18:20 Last Admin: 07/12/25 08:26 Dose: 5 mg Polyethylene Glycol (Polyethylene (Miralax) 17 Gm Pack) 17 gm PO DAILY PRN PRN Reason: Constipation Stop: 08/09/25 21:33 Last Admin: 07/13/25 09:18 Dose: 17 gm Potassium Chloride (Potassium Chloride 10 Meq Tabcr) 10 meq PO QAM MELANIA Stop: 08/10/25 08:59 Last Admin: 07/13/25 09:18 Dose: 10 meq Torsemide (Torsemide 20 Mg Tab) 20 mg PO BID REPLACED BY [facility] Stop: 08/09/25 21:33 Last Admin: 07/13/25 09:14 Dose: 20 mg (1) Diabetic foot ulcer Diabetic foot ulcer location: toe Diabetes mellitus type: type 2 Laterality: left Non-pressure ulcer stage: with necrosis of muscle Qualified Code(s): E11.621 - Type 2 diabetes mellitus with foot ulcer; L97.523 - Non-pressure chronic ulcer of other part of left foot with necrosis of muscle
--- NOTE | 2025-07-13 14:33 | Podiatry Progress Note ---
Date of Service July 13, 2025 Assessment & Plan (1) Peripheral arterial disease: (2) Diabetic foot ulcer: (3) Cellulitis of left lower leg: Plan Ulcer left second toe with associated cellulitis: - CTA aorta with runoff 07/12/2025: No plan for vascular intervention during this admission. Will reach out to vascular surgery if wound healing stalls or worsens. - X-ray left foot 07/10/2025 with atherosclerosis and calcifications of the posterior tibial artery noted and swelling of the left second digit. No signs of osteomyelitis on plain film radiograph. - MRI left foot 07/10/2025: Imaging affected by motion artifact. No discrete underlying destructive osseous or joint process. - Wound culture left second toe 07/10/2025: Growing Staph aureus and Enterobacter cloacae complex. sensitivities pending - Blood culture 07/10/2025: Preliminary. No growth 48 hours - Continue weightbearing as tolerated in postop shoe to left foot. Patient encouraged to remove postop shoe while at rest in bed to reduce stress to the digits. - Dressing change left second toe once daily with Aquacel Ag and a dry sterile dressing. Change dressing to the lateral third digit wound on the left foot once daily with Aquacel Ag. Will continue to monitor blistered areas on the 4th and 5th toe however at this time they should just be protected and no need for application of dressing. Decreased edema to digits 2 through 5 on the left foot today. Continue antibiotic therapy, wound care and offloading. We discussed possible need for more aggressive offloading however the current use of the postop shoe appears to be adequate and manageable for the patient at this time. Okay for discharge from podiatry standpoint. Will continue to follow patient while she remains in house and recommend close follow-up in the wound care center following discharge. Admission and Anticipated Discharge Date Admission Date: July 10, 2025 Subjective Patient resting comfortably in bedside chair eating lunch with dressing and postop shoe in place to the left foot. Denies pain to the left foot. Review of Systems Review of Systems: Denies nausea, vomiting, fever, chills. Denies pain in the left foot. Physical Exam Physical Exam: Const: Appears well developed and well nourished. No signs of acute distress present. CV: Extremities: No cyanosis or edema. Capillary refill time is less than 2 seconds all digits of the bilateral foot. Posterior tibial and dorsalis pedis pulses are none palpable bilateral. Lymph: No palpable or visible regional lymphadenopathy. Skin: No scars, rashes, lesions or ecchymosis. Neuro: Loss of protective sensation bilateral foot Psych: Mood/Affect: Mood is normal. Affect is normal. Cognition: Orientation is intact to person, place and time. Focused lower extremity musculoskeletal exam: Leg: No pain with compression of the calf muscle. Feet: Decreased erythema and edema to toes 2 through 5 on the left foot over the past 24 hours. Decreased erythema and edema to the left foot and ankle since the time of admission.Significant improvement to the left plantar digit ulcer since the time of admission is encouraging. Decrease necrotic tissue to the wound base. Development of some granular tissue to the wound base and no exposed bone or joint at this time. Long flexor tendon the second digit is pathologically ruptured. Superficial breakdown of skin to the lateral aspect of the third toe with no signs of local soft tissue infection. Blisters to the 4th and 5th toe remain intact . Results & Data Results & Data Vital Signs (Past 12 Hours) Vital Signs Temp Pulse Resp BP Pulse Ox O2 Del Method 07/13/25 08:02 37.6 C H 89 16 141/75 H 98 Room Air Coding Level of Care Code 98003 SUB INP/OBS CARE 235MIN Diagnoses Peripheral arterial disease I73.9 Diabetic ulcer of toe of left foot associated with type 2 diabetes mellitus, with necrosis of muscle E11.621; L97.523 Diabetic foot ulcer location: toe Diabetes mellitus type: type 2 Laterality: left Non-pressure ulcer stage: with necrosis of muscle Cellulitis of left lower leg L03.116 (2) Diabetic foot ulcer Diabetic foot ulcer location: toe Diabetes mellitus type: type 2 Laterality: left Non-pressure ulcer stage: with necrosis of muscle Qualified Code(s): E11.621 - Type 2 diabetes mellitus with foot ulcer; L97.523 - Non-pressure chronic ulcer of other part of left foot with necrosis of muscle
--- NOTE | 2025-07-14 14:15 | Hospitalist Progress Note ---
Date of Service July 14, 2025 Assessment & Plan (1) Diabetic foot ulcer: (2) Hypokalemia: (3) Cellulitis of left lower leg: (4) Chronic diastolic heart failure: (5) DM (diabetes mellitus), type 2: (6) CAD (coronary artery disease): (7) Dyslipidemia: (8) Mood disorder: (9) Hypothyroidism: (10) Ambulatory dysfunction: (11) Hypertension: Plan This is a 74yo F with PMH of Type 2 diabetes, heart failure with preserved EF, hypertension, mild CAD, morbid obesity, anxiety, history of aortic valve replacement, history of TIA, dyslipidemia and other medical problems as below who was sent in by PCP for concern of worsening diabetic wound. Left foot diabetic ulcer Left lower extremity cellulitis Sent in by PCP for progressing wound of 2-4th L toes, primarily 2nd ESR 74, CRP 0.90 Foot XR without osteomyelitis seen ED discussed with Dr. Combs, who evaluated patient and added on Foot MRI - pending Continue broad abx coverage with Cefepime and Dapto Wound culture is growing Staphylococcus aureus and Enterobacter cloacae complexsensitivities noted Scheduled tylenol, oxycodone for breakthrough pain NPO @ midnight for possible debridement tomorrow Patient denies any pain and no other significant symptoms Appreciate vascular surgery evaluation She underwent aorta with runoff CTAdid not show any significant blockage in circulation Wound culture is growing staph aureus and Enterobacter cloacae complexcurrently on intravenous cefepime and daptomycin Likely contributing management and no plan for surgery by the tire fabric inspector on vascular Discussed with ID provider Advised to have oral Cipro and Zyvox Discussed with the pharmacist and will continue with oral Levaquin which will be adequate for 2 organisms that the patient has been growing from the wound Will check QT and administer Levaquin today Likely discharge tomorrow Diffuse rash,? Atopic dermatitis Diffuse BUE and BLE rash noted on exam, has been mentioned on previous outpatient notes as well Patient has been using calamine lotion at home Added Zyrtec, steroid cream BID, continue famotidine Only new meds were duloxetine started in April 2025, also completed a 10d Keflex course in April Monitor -rash seems to have improved Hypokalemia Initial K 3.3 - replaced, monitor Potassium replaced orally 40+10 mEq and magnesium replaced intravenously 2 g Will monitor electrolytes Potassium will be replaced at the II minimally low at 3.4 today Will check CBC PRBC tomorrow HFpEF Appears euvolemic. Continue home torsemide, spironolactone, Lopressor No signs and/or symptoms of fluid overload DM II Hold home agents SSI while in-patient BSG AC HS A1c added for AM --5.3 CAD Dyslipidemia Continue aspirin, hold statin while on dapto Mood disorder Continue home buspirone 10mg TID, duloxetine 60nf daily Ambulatory dysfunction Ambulates with a walker at home, more difficult with R foot wound PT/Ot evals, fall precautions DVT Ppx: SCDs for now Code status: FULL PCP: Jesus Dispo: Admitted to med/surg Admission and Anticipated Discharge Date Admission Date: July 10, 2025 Subjective The patient was seen and examined in medical floor She does not have any complaints and awaiting possible surgery tomorrow for left foot Denies any fever and/or chills No neck pain or foot pain no other significant symptoms 07/12/2025 The patient was seen and examined in medical floor She has been feeling much better and has had aorta with runoff CTA Denies any significant symptoms 07/13/2025 The patient was seen and examined in medical floor She has been stable without any pain in the foot No fever no chills, no abdominal pain nausea no vomiting 07/14/2025 Patient was seen and examined in medical floor She has been feeling much better and wants to go home She will have oral levofloxacin for a total of 14 days for diabetic foot ulcer Please start Levaquin today and she will be going home tomorrow Review of Systems Review of Systems: All systems reviewed and unremarkable except as noted below Physical Exam Physical Exam: Sitting in a chair without any acute distress Constitutional: well developed and well nourished; not ill appearing Eyes: PERRL, conjunctivae normal, anicteric sclerae ENMT: external ear and nose normal, oropharynx normal Neck: trachea midline, no thyromegaly Respiratory: no respiratory distress Auscultation: lungs clear to ausc ultation bilaterally Cardiovascular: Rate/Rhythm: regular rate and regular rhythm; not tachycardic Heart Sounds: normal S1 and normal S2; no murmur Extremities: no edema Gastrointestinal (Abdomen): Inspection/Auscultation: normal bowel sounds; abdomen not distended Percussion/Palpation: abdomen soft; abdomen nontender Neurologic: normal touch/pain/proprioception and moves all extremities; no focal motor deficits Lymphatic: no cervical or axillary lymphadenopathy Results & Data Results & Data Vital Signs (Past 12 Hours) Vital Signs Temp Pulse Resp BP Pulse Ox O2 Del Method 07/14/25 08:02 36.9 C 100 H 17 132/74 98 Room Air Medications Administered Current Inpatient Medications Acetaminophen (Acetaminophen 500 Mg Tab) 1,000 mg PO Q8H PRN PRN Reason: Pain or Fever Stop: 08/09/25 18:40 Last Admin: 07/14/25 08:59 Dose: 1,000 mg Aspirin (Aspirin 81 Mg Ectab) 81 mg PO QAM [facility] Stop: 08/10/25 08:59 Last Admin: 07/14/25 08:58 Dose: 81 mg Betamethasone Valerate (Betamethasone Rosalina 0.1% Cr 15 Gm) 1 appln EXT BID [facility] Stop: 08/09/25 20:59 Last Admin: 07/14/25 08:51 Dose: 1 appln Buspirone HCl (Buspirone 5 Mg Tab) 10 mg PO TID [facility] Stop: 08/09/25 21:33 Last Admin: 07/14/25 13:01 Dose: 10 mg Cetirizine HCl (Cetirizine Hcl 10 Mg Tablet) 10 mg PO QAM [facility] Stop: 08/10/25 08:59 Last Admin: 07/14/25 08:58 Dose: 10 mg Cyanocobalamin (Cyanocobalamin (B-12) 500 Mcg Tablet) 1,000 mcg PO QAM [facility] Stop: 08/10/25 08:59 Last Admin: 07/14/25 08:58 Dose: 1,000 mcg Dextrose (Dextrose 50% 50 Ml Syringe) 25 - 50 ml IV UD PRN; Protocol PRN Reason: Hypoglycemia Protocol Stop: 08/09/25 19:13 Diphenhydramine HCl (Diphenhydramine Capsule 25 Mg Cap) 25 mg PO HS PRN PRN Reason: Sleep Stop: 08/09/25 21:42 Duloxetine HCl (Duloxetine Hcl 60 Mg Cap) 60 mg PO DAILY [facility] Stop: 08/10/25 08:59 Last Admin: 07/14/25 08:58 Dose: 60 mg Famotidine (Famotidine 10 Mg Tablet) 10 mg PO BID [facility] Stop: 08/09/25 21:33 Last Admin: 07/14/25 08:58 Dose: 10 mg Ferrous Sulfate (Ferrous Sulfate 325 Mg Tab) 325 mg PO QAM [facility] Stop: 08/10/25 08:59 Last Admin: 07/14/25 08:59 Dose: 325 mg Glucagon (Glucagon For Inj 1 Mg Vial) 1 mg SQ UD PRN; Protocol PRN Reason: Hypoglycemia Protocol Stop: 08/09/25 19:13 Glucose (Glucose 40% Gel 15 Gm Tube) 15 - 30 gm PO UD PRN; Protocol PRN Reason: Hypoglycemia Protocol Stop: 08/09/25 19:13 Glucose (Glucose 10 Tab/Tube) 4 - 8 tab PO UD PRN; Protocol PRN Reason: Hypoglycemia Protocol Stop: 08/09/25 19:13 Insulin Aspart (Insulin Aspart Per Unit Charge) 0 units SC [facility] Stop: 08/09/25 19:14 Last Admin: 07/14/25 12:52 Dose: 5 units Levofloxacin (Levofloxacin 750 Mg Tab) 750 mg PO DAILY@1100 [facility]IA; Protocol Stop: 07/22/25 10:59 Levothyroxine Sodium (Levothyroxine Sodium 100 Mcg Tablet) 100 mcg PO DAILYBB [facility] Stop: 08/10/25 06:29 Last Admin: 07/14/25 06:01 Dose: 100 mcg Melatonin (Melatonin 3 Mg Tab) 3 mg PO HS PRN PRN Reason: Insomnia Stop: 08/09/25 21:33 Metoprolol Tartrate (Metoprolol Tartrate 50 Mg Tab) 50 mg PO BID [facility] Stop: 08/09/25 21:33 Last Admin: 07/14/25 08:59 Dose: 50 mg Miscellaneous (Carbohydrates For Hypoglycemia ) 15 - 30 gm PO UD PRN PRN Reason: Hypoglycemia Protocol Stop: 08/09/25 19:13 Oxycodone HCl (Oxycodone Hcl Ir 5 Mg Tab (Immediate Release)) 5 mg PO Q8H PRN PRN Reason: Mod-Sev Pain (Scale 4-10) Stop: 07/24/25 18:20 Last Admin: 07/12/25 08:26 Dose: 5 mg Polyethylene Glycol (Polyethylene (Miralax) 17 Gm Pack) 17 gm PO DAILY PRN PRN Reason: Constipation Stop: 08/09/25 21:33 Last Admin: 07/13/25 09:18 Dose: 17 gm Potassium Chloride (Potassium Chloride 10 Meq Tabcr) 10 meq PO QAM [facility] Stop: 08/10/25 08:59 Last Admin: 07/14/25 08:57 Dose: 10 meq Torsemide (Torsemide 20 Mg Tab) 20 mg PO BID [facility] Stop: 08/09/25 21:33 Last Admin: 07/14/25 08:58 Dose: 20 mg (1) Diabetic foot ulcer Diabetic foot ulcer location: toe Diabetes mellitus type: type 2 Laterality: left Non-pressure ulcer stage: with necrosis of muscle Qualified Code(s): E11.621 - Type 2 diabetes mellitus with foot ulcer; L97.523 - Non-pressure chronic ulcer of other part of left foot with necrosis of muscle
[2025-07-15 06:28] LABS: Hematocrit (blood only) 35.0 % (37.0-47.0); Hemoglobin 11.2 g/dl (12.0-16.0); Immature Granulocytes # (auto) 0.04 K/uL (0.01-0.20); Immature Granulocytes % (auto) 0.4 %; Mean Corpuscular Hemoglobin 30.4 pg (25.0-34.0); Mean Corpuscular Volume 95.1 fL (80.0-100.0); Platelet Count 275 K/uL (130-400); RDW Standard Deviation 45.1 fL (36.4-46.3); Red Blood Count 3.68 M/uL (4.20-5.40); White Blood Count 9.04 K/ul (4.8-10.8)
[2025-07-15 06:52] LABS: Anion Gap 11.0 (3-11); Blood Urea Nitrogen 36.0 mg/dl (6-23); Calcium 9.2 mg/dl (8.6-10.3); Carbon Dioxide 26.0 mmol/L (21-32); Chloride 99.0 mmol/L (98-107); Creatinine Clr Calc Pharmacy 50.8 ml/min; Glucose 125.0 mg/dl (70-99(Fasting)); Potassium 3.3 mmol/L (3.5-5.1); Sodium 136.0 mmol/L (136-145)
[2025-07-15] MEDS: POTASSIUM CHLORIDE CRTAB 20 MEQ TABCR PO STA (08:52)
--- NOTE | 2025-07-15 12:25 | Hospitalist Progress Note ---
Date of Service July 15, 2025 Assessment & Plan (1) Diabetic foot ulcer: (2) Hypokalemia: (3) Cellulitis of left lower leg: (4) Chronic diastolic heart failure: (5) DM (diabetes mellitus), type 2: (6) CAD (coronary artery disease): (7) Dyslipidemia: (8) Mood disorder: (9) Hypothyroidism: (10) Ambulatory dysfunction: (11) Hypertension: Plan This is a 74yo F with PMH of Type 2 diabetes, heart failure with preserved EF, hypertension, mild CAD, morbid obesity, anxiety, history of aortic valve replacement, history of TIA, dyslipidemia and other medical problems as below who was sent in by PCP for concern of worsening diabetic wound. Left foot diabetic ulcer Left lower extremity cellulitis Sent in by PCP for progressing wound of 2-4th L toes, primarily 2nd ESR 74, CRP 0.90 Foot XR without osteomyelitis seen ED discussed with Dr. Combs, who evaluated patient and added on Foot MRI - pending Continue broad abx coverage with Cefepime and Dapto Wound culture is growing Staphylococcus aureus and Enterobacter cloacae complexsensitivities noted Scheduled tylenol, oxycodone for breakthrough pain NPO @ midnight for possible debridement tomorrow Patient denies any pain and no other significant symptoms Appreciate vascular surgery evaluation She underwent aorta with runoff CTAdid not show any significant blockage in circulation Wound culture is growing staph aureus and Enterobacter cloacae complexcurrently on intravenous cefepime and daptomycin Likely contributing management and no plan for surgery by the national investigative producer on vascular Discussed with ID provider Advised to have oral Cipro and Zyvox Discussed with the pharmacist and will continue with oral Levaquin which will be adequate for 2 organisms that the patient has been growing from the wound Will check QT and administer Levaquin today Denies any side effect of Levaquin and the QT is not prolonged She will be discharged home this afternoon on Levaquin to finish the course for a total of 14 days of antibiotic as per recommendation from the ID Diffuse rash,? Atopic dermatitis Diffuse BUE and BLE rash noted on exam, has been mentioned on previous outpatient notes as well Patient has been using calamine lotion at home Added Zyrtec, steroid cream BID, continue famotidine Only new meds were duloxetine started in April 2025, also completed a 10d Keflex course in April -rash seems to have improved Hypokalemia Initial K 3.3 - replaced, monitor Potassium replaced orally 40+10 mEq and magnesium replaced intravenously 2 g Will monitor electrolytes Potassium will be replaced at the II minimally low at 3.4 today Will check CBC PRBC tomorrow Will need to continue oral potassium supplement with increasing dose on discharge for HFpEF Appears euvolemic. Continue home torsemide, spironolactone, Lopressor No signs and/or symptoms of fluid overload DM II Hold home agents SSI while in-patient BSG AC HS A1c added for AM --5.3 CAD Dyslipidemia Continue aspirin, hold statin while on dapto Mood disorder Continue home buspirone 10mg TID, duloxetine 60nf daily Ambulatory dysfunction Ambulates with a walker at home, more difficult with R foot wound PT/Ot evals, fall precautions DVT Ppx: SCDs for now Code status: FULL PCP: Jesus Dispo: Admitted to med/surg Discussed with the sister Admission and Anticipated Discharge Date Admission Date: July 10, 2025 Subjective The patient was seen and examined in medical floor She does not have any complaints and awaiting possible surgery tomorrow for left foot Denies any fever and/or chills No neck pain or foot pain no other significant symptoms 07/12/2025 The patient was seen and examined in medical floor She has been feeling much better and has had aorta with runoff CTA Denies any significant symptoms 07/13/2025 The patient was seen and examined in medical floor She has been stable without any pain in the foot No fever no chills, no abdominal pain nausea no vomiting 07/14/2025 Patient was seen and examined in medical floor She has been feeling much better and wants to go home She will have oral levofloxacin for a total of 14 days for diabetic foot ulcer Please start Levaquin today and she will be going home tomorrow 07/15/2025 The patient was seen and examined in medical floor She has been feeling fine and denies any pain in the feet No fever and no chills does not have any nausea no vomiting She will be discharged home this afternoon Review of Systems Review of Systems: All systems reviewed and unremarkable except as noted below Physical Exam Physical Exam: Sitting in a chair without any acute distress Constitutional: well developed and well nourished; not ill appearing Eyes: PERRL, conjunctivae normal, anicteric sclerae ENMT: external ear and nose normal, oropharynx normal Neck: trachea midline, no thyromegaly Respiratory: no respiratory distress Auscultation: lungs clear to auscultation bilaterally Cardiovascular: Rate/Rhythm: regular rate and regular rhythm; not tachycardic Heart Sounds: normal S1 and normal S2; no murmur Extremities: no edema Gastrointestinal (Abdomen): Inspection/Auscultation: normal bowel sounds; abdomen not distended Percussion/Palpation: abdomen soft; abdomen nontender Musculoskeletal: No acute arthritis involving any of the joint Neurologic: normal touch/pain/proprioception and moves all extremities; no focal motor deficits Lymphatic: no cervical or axillary lymphadenopathy Results & Data Results & Data Vital Signs (Past 12 Hours) Vital Signs Temp Pulse Resp BP BP Pulse Ox O2 Del Method 07/15/25 08:49 101 H 127/76 07/15/25 08:05 36.6 C 102 H 16 123/77 98 Room Air Laboratory Results Short CBC 07/15/25 Range/Units 06:15 WBC 9.04 (4.8-10.8) K/ul Hgb 11.2 L (12.0-16.0) g/dl Hct 35.0 L (37.0-47.0) % Plt Count 275 (130-400) K/uL BMP 07/15/25 06:15 Sodium 136 Potassium 3.3 L Chloride 99 Carbon Dioxide 26 BUN 36 H Creatinine 0.93 Glucose 125 H Calcium 9.2 Medications Administered Current Inpatient Medications Acetaminophen (Acetaminophen 500 Mg Tab) 1,000 mg PO Q8H PRN PRN Reason: Pain or Fever Stop: 08/09/25 18:40 Last Admin: 07/14/25 08:59 Dose: 1,000 mg Aspirin (Aspirin 81 Mg Ectab) 81 mg PO QAM [facility] Stop: 08/10/25 08:59 Last Admin: 07/15/25 08:53 Dose: 81 mg Betamethasone Valerate (Betamethasone Rosalina 0.1% Cr 15 Gm) 1 appln EXT BID [facility] Stop: 08/09/25 20:59 Last Admin: 07/15/25 08:55 Dose: 1 appln Buspirone HCl (Buspirone 5 Mg Tab) 10 mg PO TID [facility] Stop: 08/09/25 21:33 Last Admin: 07/15/25 08:54 Dose: 10 mg Cetirizine HCl (Cetirizine Hcl 10 Mg Tablet) 10 mg PO QAM [facility] Stop: 08/10/25 08:59 Last Admin: 07/15/25 08:53 Dose: 10 mg Cyanocobalamin (Cyanocobalamin (B-12) 500 Mcg Tablet) 1,000 mcg PO QAM [facility] Stop: 08/10/25 08:59 Last Admin: 07/15/25 08:55 Dose: 1,000 mcg Dextrose (Dextrose 50% 50 Ml Syringe) 25 - 50 ml IV UD PRN; Protocol PRN Reason: Hypoglycemia Protocol Stop: 08/09/25 19:13 Diphenhydramine HCl (Diphenhydramine Capsule 25 Mg Cap) 25 mg PO HS PRN PRN Reason: Sleep Stop: 08/09/25 21:42 Duloxetine HCl (Duloxetine Hcl 60 Mg Cap) 60 mg PO DAILY [facility] Stop: 08/10/25 08:59 Last Admin: 07/15/25 08:54 Dose: 60 mg Famotidine (Famotidine 10 Mg Tablet) 10 mg PO BID [facility] Stop: 08/09/25 21:33 Last Admin: 07/15/25 08:54 Dose: 10 mg Ferrous Sulfate (Ferrous Sulfate 325 Mg Tab) 325 mg PO QAM [facility] Stop: 08/10/25 08:59 Last Admin: 07/15/25 08:54 Dose: 325 mg Glucagon (Glucagon For Inj 1 Mg Vial) 1 mg SQ UD PRN; Protocol PRN Reason: Hypoglycemia Protocol Stop: 08/09/25 19:13 Glucose (Glucose 40% Gel 15 Gm Tube) 15 - 30 gm PO UD PRN; Protocol PRN Reason: Hypoglycemia Protocol Stop: 08/09/25 19:13 Glucose (Glucose 10 Tab/Tube) 4 - 8 tab PO UD PRN; Protocol PRN Reason: Hypoglycemia Protocol Stop: 08/09/25 19:13 Insulin Aspart (Insulin Aspart Per Unit Charge) 0 units SC [facility] Stop: 08/09/25 19:14 Last Admin: 07/15/25 08:50 Dose: 6 units Levofloxacin (Levofloxacin 750 Mg Tab) 750 mg PO DAILY@1100 [facility]ANIA; Protocol Stop: 07/22/25 10:59 Last Admin: 07/15/25 11:21 Dose: 750 mg Levothyroxine Sodium (Levothyroxine Sodium 100 Mcg Tablet) 100 mcg PO DAILYBB [facility] Stop: 08/10/25 06:29 Last Admin: 07/15/25 05:32 Dose: 100 mcg Melatonin (Melatonin 3 Mg Tab) 3 mg PO HS PRN PRN Reason: Insomnia Stop: 08/09/25 21:33 Metoprolol Tartrate (Metoprolol Tartrate 50 Mg Tab) 50 mg PO BID [facility] Stop: 08/09/25 21:33 Last Admin: 07/15/25 08:54 Dose: 50 mg Miscellaneous (Carbohydrates For Hypoglycemia ) 15 - 30 gm PO UD PRN PRN Reason: Hypoglycemia Protocol Stop: 08/09/25 19:13 Oxycodone HCl (Oxycodone Hcl Ir 5 Mg Tab (Immediate Release)) 5 mg PO Q8H PRN PRN Reason: Mod-Sev Pain (Scale 4-10) Stop: 07/24/25 18:20 Last Admin: 07/14/25 20:54 Dose: 5 mg Polyethylene Glycol (Polyethylene (Miralax) 17 Gm Pack) 17 gm PO DAILY PRN PRN Reason: Constipation Stop: 08/09/25 21:33 Last Admin: 07/13/25 09:18 Dose: 17 gm Potassium Chloride (Potassium Chloride 10 Meq Tabcr) 10 meq PO QAM [facility] Stop: 08/10/25 08:59 Last Admin: 07/15/25 09:14 Dose: 10 meq Torsemide (Torsemide 20 Mg Tab) 20 mg PO BID [facility] Stop: 08/09/25 21:33 Last Admin: 07/15/25 08:55 Dose: 20 mg (1) Diabetic foot ulcer Diabetic foot ulcer location: toe Diabetes mellitus type: type 2 Laterality: left Non-pressure ulcer stage: with necrosis of muscle Qualified Code(s): E11.621 - Type 2 diabetes mellitus with foot ulcer; L97.523 - Non-pressure chronic ulcer of other part of left foot with necrosis of muscle
--- NOTE | 2025-07-15 15:07 | Discharge Summary ---
Date of Service July 15, 2025 Admission HPI Per Admitting Provider This is a 74yo F with PMH of Type 2 diabetes, heart failure with preserved EF, hypertension, mild CAD, morbid obesity, anxiety, history of aortic valve replacement, history of TIA, dyslipidemia and other medical problems as below who was sent in by PCP due to worsening wound on her foot. Patient is a poor historian and most information obtained from chart review. Previously followed with [facility] in [place] for wound on right leg and is established with [facility]. The caregiver reported a wound on patient's second digit of left foot yesterday. Area was draining clear fluid with a scant amount of yellow and caregiver called EMS after dressing the wound. Patient declined going to the ED once ambulance had arrived. Saw her PCP earlier today and due to worsening appearance of wound, was sent to the ED for further evaluation. Denies any fever or chills. No chest pain, shortness of breath, nausea, vomiting, abdominal pain, dysuria, diarrhea or constipation. Decreased feeling in feet from diabetic neuropathy but still with some. Has been taking medications as prescribed. Was transition from Celexa to duloxetine in April but denies any other new medications. Has extensive rash on upper lower extremities and is unclear how long it has been present but per discussion with patient seems like at least a few weeks. Lives with twin sister, has HH. Ambulates with a walker at baseline. Admission Exam Per Admitting Provider Physical Exam: General Appearance: WD/WN, vitals as above, NAD, sitting up in bed, pleasant, conversing without issue Head: normocephalic, atraumatic Eyes: normal inspection, PERRL, conjunctivae normal, anicteric sclerae ENT: external ear and nose normal, oropharynx normal Neck: normal visual inspection Respiratory: normal respiratory effort, lungs clear to auscultation, no wheeze, rales, rhonchi. No accessory muscle use Cardiovascular: regular rate, rhythm, normal peripheral pulses, trace BLE edema Abdomen/GI: normal bowel sounds, soft, nontender Extremities/Musculoskeletal: no cyanosis or clubbing, extremities motor strength 5/5. + LLE erythematous and warm extending from foot up to mid leg. Erythema of 2nd-4th toes with wound on plantar aspect of 2nd toe exposing to level of bone with concern for necrosis of 2nd digit Neurologic: PERRL, EOMI, accommodation nl, no face palsy, no dysarthria, CN's II-XI intact bilaterally and moves all extremities Psychiatric: A+Ox3, euthymic affect Skin: normal color, warm/dry, + diffuse rash on BUE with dry, eczematous areas with excoriation. BLE with similar appearance with addition of petechia on LLE Principal Diagnosis Left foot diabetic ulcer, left lower extremity cellulitis, type 2 diabetes, HF PEF Discharge Exam Sitting in a chair without any acute distress Constitutional well developed and well nourished; not ill appearing Eyes PERRL, conjunctivae normal, anicteric sclerae ENMT external ear and nose normal, oropharynx normal Neck trachea midline, no thyromegaly Respiratory no respiratory distress Auscultation: lungs clear to auscultation bilaterally Cardiovascular Rate/Rhythm: regular rate and regular rhythm; not tachycardic Heart Sounds: normal S1 and normal S2; no murmur Extremities: no edema Gastrointestinal (Abdomen) Inspection/Auscultation: normal bowel sounds; abdomen not distended Percussion/Palpation: abdomen soft; abdomen nontender Neurologic normal touch/pain/proprioception and moves all extremities; no focal motor deficits Lymphatic no cervical or axillary lymphadenopathy Discharge Data Allergies Allergy/AdvReac Type Severity Reaction Status Date / Time Sulfa (Sulfonamide Allergy Intermediate HIVES Verified 03/28/21 12:16 Antibiotics) phentermine AdvReac Severe Seizure Verified 03/28/21 12:16 activity or cardiac arrest - pt unsure tramadol AdvReac Intermediate Seizure Verified 03/28/21 12:16 activity Consultations 07/10/25 16:24 Consult Podiatry Stat 07/10/25 16:29 ED Decision to Admit Stat 07/11/25 11:10 Consult Vascular Surgery Routine 07/13/25 10:39 Consult Infectious Diseases Routine Ordered Studies 07/10/25 16:51 MRI Foot [MR foot LT w/o con] Stat 07/11/25 US arterial duplex LE BI Routine 07/12/25 09:44 CTA abd aorta runof w con [CT ang AA runof w inc wo ifdon] Routine Hospital Course (1) Diabetic foot ulcer: (2) Hypokalemia: (3) Cellulitis of left lower leg: (4) Chronic diastolic heart failure: (5) DM (diabetes mellitus), type 2: (6) CAD (coronary artery disease): (7) Dyslipidemia: (8) Mood disorder: (9) Hypothyroidism: (10) Ambulatory dysfunction: (11) Hypertension: Plan This is a 74yo F with PMH of Type 2 diabetes, heart failure with preserved EF, hypertension, mild CAD, morbid obesity, anxiety, history of aortic valve replacement, history of TIA, dyslipidemia and other medical problems as below who was sent in by PCP for concern of worsening diabetic wound. Left foot diabetic ulcer Left lower extremity cellulitis Sent in by PCP for progressing wound of 2-4th L toes, primarily 2nd ESR 74, CRP 0.90 Foot XR without osteomyelitis seen ED discussed with Dr. Combs, who evaluated patient and added on Foot MRI - pending Continue broad abx coverage with Cefepime and Dapto Wound culture is growing Staphylococcus aureus and Enterobacter cloacae complexsensitivities noted Scheduled tylenol, oxycodone for breakthrough pain NPO @ midnight for possible debridement tomorrow Patient denies any pain and no other significant symptoms Appreciate vascular surgery evaluation She underwent aorta with runoff CTAdid not show any significant blockage in circulation Wound culture is growing staph aureus and Enterobacter cloacae complexcurrently on intravenous cefepime and daptomycin Likely contributing management and no plan for surgery by the manager personal on vascular Discussed with ID provider Advised to have oral Cipro and Zyvox Discussed with the pharmacist and will continue with oral Levaquin which will be adequate for 2 organisms that the patient has been growing from the wound Will check QT and administer Levaquin today Denies any side effect of Levaquin and the QT is not prolonged She will be discharged home this afternoon on Levaquin to finish the course for a total of 14 days of antibiotic as per recommendation from the ID Diffuse rash,? Atopic dermatitis Diffuse BUE and BLE rash noted on exam, has been mentioned on previous outpatient notes as well Patient has been using calamine lotion at home Added Zyrtec, steroid cream BID, continue famotidine Only new meds were duloxetine started in April 2025, also completed a 10d Keflex course in April Monitor -rash seems to have improved Hypokalemia Initial K 3.3 - replaced, monitor Potassium replaced orally 40+10 mEq and magnesium replaced intravenously 2 g Will monitor electrolytes Potassium will be replaced at the II minimally low at 3.4 today Will check CBC PRBC tomorrow Will need to continue oral potassium supplement with increasing dose on discharge for HFpEF Appears euvolemic. Continue home torsemide, spironolactone, Lopressor No signs and/or symptoms of fluid overload DM II Hold home agents SSI while in-patient BSG AC HS A1c added for AM --5.3 CAD Dyslipidemia Continue aspirin, hold statin while on dapto Mood disorder Continue home buspirone 10mg TID, duloxetine 60nf daily Ambulatory dysfunction Ambulates with a walker at home, more difficult with R foot wound PT/Ot evals, fall precautions DVT Ppx: SCDs for now Code status: FULL PCP: Jesus Dispo: Admitted to med/surg Discussed with the sister Total Time Total Time Spent Total Time Spent (In Minutes): 35 Minutes Discharge Plan Discharge Items Patient Disposition: Home - Self-Care Reason For Visit: L FOOT WOUND Discharge Diagnosis: Left foot diabetic ulcer, left lower extremity cellulitis, type 2 diabetes, HF PEF Condition on Discharge: Good Activity: Resume your previous activity Non-emergency contact: Primary Care Provider Call non-emergency contact if: you have any medication questions and your symptoms worsen Follow-up/Referrals: Misty Lee, [Primary Care Provider] - (You will be called with an aditya ointment within 7 days to see your PCP) Diet: Carb Consistent or DM2 and Low Sodium (2gm) Addtl Attending Provider Instructions: Please take precautions to avoid falls Finish the course of antibiotic as advised and you can try some probiotics [id number] with antibiotic Try to keep your feet clean and dry to prevent further infection or worsening of infection Please keep appointments with your healthcare providers Stand-Alone Forms: My [facility] kWhOURS, Smoking Cessation Medications and DC Order Prescriptions: New levofloxacin 750 mg Tablet 750 mg PO DAILY@1100 Qty: 9 0RF Probiotic 10 billion cell capsule 100 mmu cells PO DAILY Qty: 30 0RF Continued metformin 500 mg tablet 500 mg PO BIDM atorvastatin 20 mg tablet 20 mg PO HS torsemide 20 mg tablet 20 mg PO BID famotidine [Acid Seating And Mobility Technologist (famotidine)] 10 mg tablet 10 mg PO BID cyanocobalamin (vitamin B-12) [Vitamin B-12] 1,000 mcg Tablet 1,000 mcg PO QAM aspirin 81 mg Tablet,Delayed Release (Dr/Ec) 81 mg PO QAM spironolactone 25 mg tablet 12.5 mg PO QAM levothyroxine 100 mcg tablet 100 mcg PO DAILYBB ferrous sulfate [iron] 325 mg (65 mg iron) Tablet 325 mg PO QAM buspirone 10 mg tablet 10 mg PO TID metoprolol tartrate 50 mg tablet 50 mg PO BID diphenhydramine-acetaminophen [Tylenol PM Extra Strength] 25-500 mg Tablet 1 tab PO HS PRN (Reason: Sleep) duloxetine 60 mg capsule,delayed release(DR/EC) 60 mg PO DAILY Changed potassium chloride 10 mEq tablet,ER particles/crystals 20 meq PO QAM Qty: 0 0RF Discharge Orders: Discharge Order (Routine); Ordered 07/15/25 Ordered By: Del Wright/Other Patient Handouts: Nutrition for Wound Healing, Managing Type 2 Diabetes, Special Foot Care for Diabetes Admission Data Admit Date/Time: 07/10/25 16:43 Attending Provider: Del Hernandes Admit Provider: Jose Valencia Primary Care Provider: Misty Lee Other Providers: Frantz Combs; Jose Valencia; Fadi J[facility]; Edwar Hurd; Alex Villafuerte; Nelson Gutiérrez I.; Candido Arvizu II; Vivian Khalil; Mitesh Balderrama; Jaime Rivero; Prachi Vasquez Other Interventions: Discharge Summary Assessment (RN) Last Done: 07/15/25 14:14
--- NOTE | 2025-07-15 20:58 | Electrocardiogram Report ---
Test Reason : Blood Pressure : */* mmHG Vent. Rate : 76 BPM Atrial Rate : 76 BPM P-R Int : 214 ms QRS Dur : 88 ms QT Int : 396 ms P-R-T Axes : 67 77 77 degrees QTcB Int : 445 ms Sinus rhythm with 1st degree A-V block Otherwise normal ECG When compared with ECG of 28-Mar-2021 10:55, No significant change was found Confirmed by Lico Vegas ([id number]) on 07/15/2025 8:58:21 PM Referred By: REFERRED SELF Confirmed By: Lico Vegas
--- NOTE | 2025-07-15 20:58 | Electrocardiogram Report ---
Test Reason : Blood Pressure : */* mmHG Vent. Rate : 99 BPM Atrial Rate : 99 BPM P-R Int : 226 ms QRS Dur : 90 ms QT Int : 348 ms P-R-T Axes : 53 68 53 degrees QTcB Int : 446 ms Sinus rhythm with 1st degree A-V block Otherwise normal ECG When compared with ECG of 14-Jul-2025 12:07, No significant change was found Confirmed by Lico Vegas ([id number]) on 07/15/2025 8:58:35 PM Referred By: REFERRED SELF Confirmed By: Lico Vegas
== END 2025-07-15 15:59 | disposition home health service (06) | DRG 638 ==
LOC: ED 14:39 → SUATTDRO 16:43 → 3N 16:43